=== PATIENT | male | born 1965 | race Caucasian/White ===

== ENCOUNTER → 2016-12-19 | Outpatient (CLI) | payer SELFPAY | LOC: MW.RT 07:49 | DX: R00.0 Tachycardia, unspecified (principal) ==

== ENCOUNTER → 2017-01-26 | Outpatient (CLI) | payer MEDICAID ==
--- NOTE | 2017-01-29 17:13 | NM ---
EXAM DATE: 01/26/17 PATIENT'S AGE: 51 Addendum: Additional imaging was obtained at rest following the administration of 26.2 mCi of technetium 99m labeled sestamibi. Findings/impression: The previously demonstrated defect along the inferolateral wall is not as well appreciated on the rest imaging. This could suggest mild underlying ischemia. Ejection fraction at rest is 54%. EXAMINATION: Nuclear medicine myocardial perfusion study HISTORY: Heart disease. PROCEDURE: Following intravenous administration of 0.4 mg of Lexiscan and 26.7 mCi of technetium 99m sestamibi, stress and rest SPECT images including gating imaging was performed. FINDINGS: Stress and rest myocardial SPECT images demonstrates mildly decreased perfusion along the inferior wall from the mid portion to base. Review of gated images demonstrates normal wall motion, contractility and wall thickening. The left ventricular ejection fraction is 66 %. The left ventricular chamber size is normal. IMPRESSION: 1. Mildly decreased perfusion along the inferior wall, correlate with rest imaging. 2. Normal ventricular chamber size and function with ejection fraction of 66%. MTDD
== END ==
LOC: MW.NM 08:33
PROVIDERS: ATTEND Internal Medicine
DX: I25.10 Atherosclerotic heart disease of native coronary artery without angina pectoris (principal)
CPT/HCPCS: 78451; A9500

== ENCOUNTER 2017-04-21 12:08 | Observation (INO) | payer MEDICAID ==
--- NOTE | 2017-04-21 12:15 | EDM.PDOC ---
ED HPI GENERAL MEDICAL PROBLEM - General Stated Complaint: PT HAS NO ENERGY Time Seen by Provider: 04/21/17 12:15 Source of Information: Reports: Patient - History of Present Illness INITIAL COMMENTS - FREE TEXT/NARRATIVE: HISTORY AND PHYSICAL: History of present illness: []Patient presents with chest pain 3 out of 10 which is lasted for 30 minutes no fever nausea vomiting chills sweats he states he does feel decreased energy there is no radiation arm neck or jaw no diaphoresis He does have risk factors of smoking hypertension 4 previous stents put in last May Review of systems: As per history of present illness and below otherwise all systems reviewed and negative. Past medical history: As per history of present illness and as reviewed below otherwise noncontributory. Surgical history: As per history of present illness and as reviewed below otherwise noncontributory. Social history: No reported history of drug or alcohol abuse. Family history: As per history of present illness and as reviewed below otherwise noncontributory. Physical exam: HEENT: Atraumatic, normocephalic, pupils reactive, negative for conjunctival pallor or scleral icterus, mucous membranes moist, throat clear, neck supple, nontender, trachea midline. Lungs: Clear to auscultation, breath sounds equal bilaterally, chest nontender. Heart: S1S2, regular, negative for clicks, rubs, or JVD. Abdomen: Soft, nondistended, nontender. Negative for masses or hepatosplenomegaly. Negative for costovertebral tenderness. Pelvis: Stable nontender. Genitourinary: Deferred. Rectal: Deferred. Extremities: Atraumatic, negative for cords or calf pain. Neurovascular unremarkable. Neuro: Awake, alert, oriented. Cranial nerves II through XII unremarkable. Cerebellum unremarkable. Motor and sensory unremarkable throughout. Exam nonfocal. Diagnostics: []Lab as below EKG Chest 1 view Therapeutics: []Liter normal saline bolus Aspirin 324 mg chewable Lopressor 5 mg IV Impression: []Atypical chest pain Definitive disposition and diagnosis as appropriate pending reevaluation and review of above. left chest pain Pain Score (Numeric/FACES): 4 - Related Data Allergies Allergy/AdvReac Type Severity Reaction Status Date / Time No Known Allergies Allergy Verified 04/21/17 12:17 Home Meds: Home Meds Aspirin [Ecotrin] 325 mg PO 07/14/16 [History] Clopidogrel [Plavix] 75 mg PO DAILY 07/14/16 [History] Nitroglycerin [Nitrostat] 07/14/16 [History] Pantoprazole [Protonix] 40 mg PO ACBREAKFAST 07/14/16 [History] Propranolol [Inderal LA] 60 mg PO DAILY 07/14/16 [History] Sertraline [Zoloft] 07/14/16 [History] Sucralfate [Carafate] 1 gm PO 07/14/16 [History] atorvaSTATin [Lipitor] 40 mg PO 07/14/16 [History] Past Medical History HEENT History: Reports: None Cardiovascular History: Reports: Stents, Other (See Below) Other Cardiovascular History: "Some kind of heart problem I'm being worked up for". Quad stents placed last thursday in [place]. Respiratory History: Reports: None Gastrointestinal History: Reports: None Genitourinary History: Reports: Renal Calculus Musculoskeletal History: Reports: None Neurological History: Reports: Other (See Below) Other Neuro History: pseudo tumor Psychiatric History: Reports: Depression Endocrine/Metabolic History: Reports: None Hematologic History: Reports: Anticoagulation Therapy Immunologic History: Reports: None Oncologic (Cancer) History: Reports: None Dermatologic History: Reports: None - Infectious Disease History Infectious Disease History: Reports: None - Past Surgical History HEENT Surgical History: Reports: Naso-Sinus Surgery Cardiovascular Surgical History: Reports: None, Coronary Artery Stent Social & Family History - Family History Family Medical History: Noncontributory Cardiac: Reports: [place] - Tobacco Use Smoking Status *Q: Current Every Day Smoker Years of Tobacco use: 40 Packs/Tins Daily: 0.5 Second Hand Smoke Exposure: No - Caffeine Use Caffeine Use: Reports: Coffee, Tea - Alcohol Use Days Per Week of Alcohol Use: 0 - Recreational Drug Use Recreational Drug Use: No Drug Use in Last 12 Months: No Recreational Drug Type: Reports: Marijuana/Hashish ED ROS GENERAL - Review of Systems Review Of Systems: See Below ED EXAM, GENERAL - Physical Exam Exam: See Below Course - Vital Signs Last Recorded V/S: Last Vital Signs Temp 35.4 C 04/21/17 12:18 Pulse 89 04/21/17 12:18 Resp 18 04/21/17 12:18 BP 146/75 H 04/21/17 12:43 Pulse Ox 95 04/21/17 12:18 - Orders/Labs/Meds Orders: Active Orders 24 hr Category Date Time Status EKG Documentation Completion [RC] STAT Care 04/21/17 12:15 Active Chest 1V Frontal [CR] Stat Exams 04/21/17 12:15 Taken COMPREHENSIVE METABOLIC PN,CMP [CHEM] Stat Lab 04/21/17 12:18 Results TSH [CHEM] Stat Lab 04/21/17 12:18 Results Sodium Chloride 0.9% [Normal Saline] 1,000 ml Med 04/21/17 12:16 Active IV STAT Medication Orders Sodium Chloride (Normal Saline) 1,000 mls @ 999 mls/hr IV STAT ONE Stop: 04/21/17 13:16 Last Admin: 04/21/17 12:29 Dose: 999 mls/hr Labs: Laboratory Tests 04/21/17 04/21/17 04/21/17 Range/Units 12:18 12:18 12:18 WBC 8.36 (4.0-11.0) K/uL RBC 5.51 (4.50-5.90) M/uL Hgb 16.9 (13.0-17.0) g/dL Hct 48.7 (38.0-50.0) % MCV 88.4 (80.0-98.0) fL MCH 30.7 (27.0-32.0) pg MCHC 34.7 (31.0-37.0) g/dL RDW Std Deviation 41.5 (28.0-62.0) fl RDW Coeff of Maribel 13 (11.0-15.0) % Plt Count 276 (150-400) K/uL MPV 9.50 (7.40-12.00) fL Neut % (Auto) 65.7 (48.0-80.0) % Lymph % (Auto) 25.5 (16.0-40.0) % [place]ary % (Auto) 6.6 (0.0-15.0) % Eos % (Auto) 1.7 (0.0-7.0) % Baso % (Auto) 0.5 (0.0-1.5) % Neut # (Auto) 5.5 (1.4-5.7) K/uL Lymph # (Auto) 2.1 (0.6-2.4) K/uL [place]ary # (Auto) 0.6 (0.0-0.8) K/uL Eos # (Auto) 0.1 (0.0-0.7) K/uL Baso # (Auto) 0.0 (0.0-0.1) K/uL Nucleated RBC % 0.0 /100WBC Nucleated RBCs # 0 K/uL Sodium 139 (136-146) mmol/L Potassium 4.1 (3.5-5.1) mmol/L Chloride 103 (98-110) mmol/L Carbon Dioxide 23 (21-31) mmol/L BUN 23 (6.0-23.0) mg/dL Creatinine 1.1 (0.6-1.5) mg/dL Est Cr Clr Drug Dosing 88.18 mL/min Estimated GFR (MDRD) > 60.0 ml/min Glucose 99 (60-110) mg/dL Calcium 10.2 (8.8-10.8) mg/dL Total Bilirubin 0.7 (0.1-1.5) mg/dL AST 18 (5-40) IU/L ALT 24 (8-54) IU/L Alkaline Phosphatase 114 (40-150) Troponin I < 0.10 (0.0-0.29) NG/ML Total Protein 8.2 H (6.0-8.0) g/dL Albumin 4.8 (3.5-5.0) g/dL Globulin 3.4 (2.0-3.5) g/dL Albumin/Globulin Ratio 1.4 (1.3-2.8) Meds: Medications Generic Name Dose Route Start Last Admin Trade Name Freq PRN Reason Stop Dose Admin Sodium Chloride 1,000 mls @ 999 mls/hr 04/21/17 12:16 04/21/17 12:29 Normal Saline IV 04/21/17 13:16 999 mls/hr STAT ONE Administration Discontinued Medications Generic Name Dose Route Start Last Admin Trade Name Freq PRN Reason Stop Dose Admin Aspirin 324 mg 04/21/17 12:16 04/21/17 12:30 Aspirin PO 04/21/17 12:17 324 mg ONETIME ONE Administration Metoprolol Tartrate 5 mg 04/21/17 12:21 Lopressor IVPUSH 04/21/17 12:22 NOW STA Nitroglycerin 0.4 mg 04/21/17 12:27 04/21/17 12:43 Nitrostat SL 04/21/17 12:38 0.4 mg Q5M PRN Administration Chest Pain Departure - Departure Time of Disposition: 13:10 Disposition: Refer to Observation Condition: Fair Clinical Impression: Atypical chest pain - Discharge Information - My Orders Last 24 Hours: My Active Orders 04/21/17 12:15 EKG Documentation Completion [RC] STAT Chest 1V Frontal [CR] Stat 04/21/17 12:16 Sodium Chloride 0.9% [Normal Saline] 1,000 ml IV STAT 04/21/17 12:18 COMPREHENSIVE METABOLIC PN,CMP [CHEM] Stat TSH [CHEM] Stat - Assessment/Plan Last 24 Hours: My Active Orders 04/21/17 12:15 EKG Documentation Completion [RC] STAT Chest 1V Frontal [CR] Stat 04/21/17 12:16 Sodium Chloride 0.9% [Normal Saline] 1,000 ml IV STAT 04/21/17 12:18 COMPREHENSIVE METABOLIC PN,CMP [CHEM] Stat TSH [CHEM] Stat
[2017-04-21] MEDS ORDERED: Sodium Chloride 0.9% 1,000 ML IV ONE (12:16)
[2017-04-21] MEDS ORDERED: Aspirin 81 MG Tab.Chew PO ONE (12:16)
[2017-04-21] MEDS ORDERED: Metoprolol Tartrate 5 MG/5 ML SDV IVPUSH STA (12:21)
[2017-04-21] MEDS: Nitroglycerin 0.4 MG Tab.SL SL PRN ×3 (12:32→12:43)
[2017-04-21 13:01] LABS: CHLORIDE,CL 103 mmol/L (98-110); SODIUM,NA 139 mmol/L (136-146)
[2017-04-21] MEDS ORDERED: Ondansetron 4 MG/2 ML SDV IVPUSH PRN (13:40)
[2017-04-21] MEDS ORDERED: Acetaminophen 325 MG Tab PO PRN (13:40)
[2017-04-21] MEDS: Enoxaparin 40 MG/0.4 ML Syringe SUBCUT SCH (14:16)
[2017-04-21] MEDS ORDERED: Nitroglycerin 0.4 MG Tab.SL SL PRN (14:22)
--- NOTE | 2017-04-21 14:33 | PCM.HP ---
H&P History of Present Illness - General Date of Service: 04/21/17 Admit Problem/Dx: chest pain Source of Information: Patient History Limitations: Reports: No Limitations - History of Present Illness Initial Comments - Free Text/Narative: This 52 estuardo old male with pmh of pseudotumor cerebrii, HTN, hyperlipidemia, CAD , s/p PCI x 4 in April 2016 (PDA RCA LAD) and GI upset presented to the ED today with complaints of L sided chest pain. He reports this pain started suddenly while he was sitting at a coffe shop. He reports this pain was sharp in nature , he did not take any Nitro and felt like he didn't want to take a deep breath because of the pain, nothing made it worse and nothing helped relieve the pain. He decided to be evaluated in the ED. He denied palpitations, SOB or diaphoresis with this pain. His girlfriend reports he appeared "sweaty". He denies recent fevers, worsening in headaches, no neck pain or URI. He denies GERD like symptoms recently since he hasn't been taking his prescribed medications. He denies urinary symptoms, abdominal pain or black/bloody stools. He reports he has not taken prescribed medications because his "kicked him out of the house" and is now currently living in a camper with his girlfriend, has no income source at this time. He reports he is unable to purchase medications. He continues to smoke 1 ppd for 40 years, occasional alcohol use and no recreational drug use. He has a family hx of cardiac disease in mother and father who both had bypasses. Has been seen by Dr Salgado, irwin nevarez in January 2017, which did not show any reversible defect with preserved EF. In the ED troponin negative. He was given Nitro x3 which brought pain to a 1/ 10. EKG SR 80s, no ST segment changes. He will be admitted for chest pain R/O ACS. PCP, Dr Castanon left chest pain Pain Score (Numeric/FACES): 4 - Related Data Allergies/Adverse Reactions: Allergies Allergy/AdvReac Type Severity Reaction Status Date / Time No Known Allergies Allergy Verified 04/21/17 12:17 Home Medications: Home Meds Aspirin [Ecotrin] 325 mg PO 07/14/16 [History] Nitroglycerin [Nitrostat] 07/14/16 [History] Pantoprazole [ProTONIX] 40 mg PO ACBREAKFAST 07/14/16 [History] Propranolol [Inderal LA] 60 mg PO DAILY 07/14/16 [History] Sertraline [Zoloft] 07/14/16 [History] Acetaminophen [Tylenol] 650 mg PO Q4H PRN #0 tablet 04/22/17 [Rx] Clopidogrel [Plavix] 75 mg PO DAILY #30 04/22/17 [Rx] Lisinopril 20 mg PO DAILY #30 tablet 04/22/17 [Rx] Past Medical History HEENT History: Reports: None Cardiovascular History: Reports: CAD, High Cholesterol, Hypertension, Stents ( x4 April 2016). Denies: Afib, Blood Clots/VTE/DVT Respiratory History: Reports: None. Denies: COPD, PE Gastrointestinal History: Reports: None, GERD. Denies: GI Bleed Genitourinary History: Reports: Renal Calculus. Denies: Chronic Renal Insuffiency Musculoskeletal History: Reports: Arthritis Neurological History: Reports: Other (See Below). Denies: CVA, TIA Other Neuro History: pseudotumor cerebrii Psychiatric History: Reports: Depression Endocrine/Metabolic History: Reports: Obesity/BMI 30+. Denies: Diabetes, Type II, Hypothyroidism Hematologic History: Reports: Anticoagulation Therapy Immunologic History: Reports: None Oncologic (Cancer) History: Reports: None Dermatologic History: Reports: None - Infectious Disease History Infectious Disease History: Reports: None - Past Surgical History HEENT Surgical History: Reports: Naso-Sinus Surgery Cardiovascular Surgical History: Reports: None, Coronary Artery Stent Social & Family History - Family History Family Medical History: Noncontributory Cardiac: Reports: [place] - Tobacco Use Smoking Status *Q: Current Every Day Smoker Years of Tobacco use: 40 Packs/Tins Daily: 0.5 Second Hand Smoke Exposure: No - Caffeine Use Caffeine Use: Reports: Coffee, Tea - Alcohol Use Days Per Week of Alcohol Use: 0 Number of Drinks Per Day: 6 Total Drinks Per Week: 0 - Recreational Drug Use Recreational Drug Use: No Drug Use in Last 12 Months: No Recreational Drug Type: Reports: Marijuana/Hashish - Living Situation & Occupation Living situation: Reports: with Significant Other, Other (living in [facility]) Occupation: Unemployed H&P Review of Systems - Review of Systems: Review Of Systems: See Below General: Reports: No Symptoms. Denies: Fever, Chills, Malaise HEENT: Reports: No Symptoms. Denies: Headaches, Sinus Congestion, Sore Throat, Vertigo Pulmonary: Reports: No Symptoms. Denies: Shortness of Breath, Wheezing, Cough, Sputum Cardiovascular: Reports: Chest Pain, Blood Pressure Problem. Denies: Palpitations, Edema Gastrointestinal: Reports: No Symptoms. Denies: Abdominal Pain, Black Stool, Bloody Stool, Diarrhea, Nausea, Vomiting Genitourinary: Reports: No Symptoms. Denies: Dysuria, Frequency, Burning Skin: Reports: No Symptoms Psychiatric: Reports: No Symptoms Neurological: Reports: No Symptoms Hematologic/Lymphatic: Reports: No Symptoms Immunologic: Reports: No Symptoms Exam - Exam Exam: See Below - Vital Signs Vital Signs: Last Vital Signs Temp 97.5 F 04/21/17 14:03 Pulse 79 04/21/17 14:03 Resp 17 04/21/17 14:03 BP 121/68 04/21/17 14:03 Pulse Ox 96 04/21/17 14:03 Weight: 136.078 kg - Exam Quality Assessment: Urinary Catheter General: Alert, Oriented, Cooperative HEENT: Conjunctiva Clear, Mucosa Moist & [place] Neck: Supple, Trachea Midline, 2 Lungs: Clear to Auscultation, Normal Respiratory Effort Cardiovascular: Regular Rate, Regular Rhythm, Normal S1, Normal S2, Other ( tenderness to palpation of anterior chest wall). No: Irregular Rhythm, Tachycardia, Systolic Murmur, Gallop/S3 Abdomen: Normal Bowel Sounds, Soft. No: Distention, Guarding, Rigidity, Tenderness Extremities: Normal Inspection, Normal Pulses, Edema (+1 non-pitting edema to feet and ankles.) Neuro Extensive - Mental Status: Alert, Oriented x3, Normal Mood/Affect, Normal Cognition Neuro Extensive - Motor, Sensory, Reflexes: CN II-XII Intact Psychiatric: Alert, Normal Affect, Normal Mood - Patient Data Result Diagrams: 04/21/17 12:18 04/21/17 12:18 EKG INTERPRETATION EKG Date: 04/21/17 Rhythm: NSR Rate (Beats/Min): 89 [place]: Normal QRS: Normal ST-T: Normal QT: Normal Comparison: No Change *Q Meaningful Use (ADM) - VTE *Q VTE Criteria *Q: - VTE Risk Assess *Q Each Risk Factor Represents 1 Point: Age 41 - 59 years, Swollen Legs, Current Total Score 1 Point Risk Factors: 2 Each Risk Factor Represents 2 Points: None Total Score 2 Point Risk Factors: 0 Each Risk Factor Represents 3 Points: None Total Score 3 Point Risk Factors: 0 Each Risk Factor Represents 5 Points: None Total Score 5 Point Risk Factors: 0 Venous Thromboembolism Risk Factor Score *Q: 2 - Stroke *Q Stroke Criteria *Q: - AMI *Q AMI Criteria *Q: - Problem List (1) Atypical chest pain SNOMED Code(s): 531772376 ICD Code: R07.89 - OTHER CHEST PAIN Status: Acute Current Visit: Yes (2) HTN (hypertension) SNOMED Code(s): 07572591 ICD Code: I10 - ESSENTIAL (PRIMARY) HYPERTENSION Status: Chronic Current Visit: Yes Qualifiers: Hypertension type: essential hypertension Qualified Code(s): I10 - Essential (primary) hypertension (3) Non-compliance SNOMED Code(s): 6408542 ICD Code: Z91.19 - PATIENT'S NONCOMPLIANCE W OTH MEDICAL TREATMENT AND REGIMEN Status: Chronic Current Visit: Yes (4) CAD (coronary artery disease) SNOMED Code(s): 30752819 ICD Code: I25.10 - ATHSCL HEART DISEASE OF [place] CORONARY ARTERY W/O ANG PCTRS Status: Chronic Current Visit: Yes Qualifiers: Coronary Disease-Associated Artery/Lesion type: [place] artery [place] vs. transplanted heart: [place] heart Associated angina: without angina Qualified Code(s): I25.10 - Atherosclerotic heart disease of [place] coronary artery without angina pectoris (5) Pseudotumor cerebri SNOMED Code(s): 83897935 ICD Code: G93.2 - BENIGN INTRACRANIAL HYPERTENSION Status: Chronic Current Visit: Yes (6) History of coronary artery stent placement SNOMED Code(s): 046444658, 501455866 ICD Code: Z95.5 - PRESENCE OF CORONARY ANGIOPLASTY IMPLANT AND GRAFT Status : Chronic Current Visit: Yes Problem List Initiated/Reviewed/Updated: Yes Orders Last 24hrs: Active Orders 24 hr Category Date Time Status Communication Order [RC] PRN Care 04/21/17 13:40 Ordered EKG Documentation Completion [RC] AM Care 04/22/17 07:00 Ordered Intake and Output [RC] QSHIFT Care 04/21/17 13:40 Ordered Oxygen Therapy [RC] PRN Care 04/21/17 13:40 Ordered Telemetry Monitoring [Cardiac Monitoring] [RC] . Care 04/21/17 13:47 Ordered DIRECTED Up With Assistance [RC] ASDIRECTED Care 04/21/17 13:40 Ordered VTE/DVT Education [RC] PER UNIT ROUTINE Care 04/21/17 13:40 Ordered Vital Signs [RC] Q4H Care 04/21/17 13:40 Ordered Heart Healthy Diet [DIET] Diet 04/21/17 Dinner Ordered TROPONIN I [CHEM] Q6H Lab 04/21/17 18:00 Ordered TROPONIN I [CHEM] Q6H Lab 04/22/17 00:00 Ordered Acetaminophen [Tylenol] Med 04/21/17 13:40 Ordered 650 mg PO Q4H PRN Aspirin Med 04/22/17 09:00 Ordered 81 mg PO DAILY Clopidogrel [Plavix] Med 04/21/17 14:30 Ordered 75 mg PO DAILY Enoxaparin [Lovenox] Med 04/21/17 13:45 Ordered 40 mg SUBCUT DAILY Lisinopril [Prinivil] Med 04/21/17 14:30 Ordered 20 mg PO DAILY Nitroglycerin [Nitrostat] Med 04/21/17 14:22 Ordered 0.4 mg SL Q5M PRN Ondansetron [Zofran] Med 04/21/17 13:40 Ordered 4 mg IVPUSH Q4H PRN Resuscitation Status Routine Resus Stat 04/21/17 13:40 Ordered Medication Orders Acetaminophen (Tylenol) 650 mg PO Q4H PRN PRN Reason: Pain Aspirin (Aspirin) 81 mg PO DAILY LIZ Clopidogrel Bisulfate (Plavix) 75 mg PO DAILY LIZ Enoxaparin Sodium (Lovenox) 40 mg SUBCUT DAILY LIZ Last Admin: 04/21/17 14:16 Dose: 40 mg Lisinopril (Prinivil) 20 mg PO DAILY LIZ Nitroglycerin (Nitrostat) 0.4 mg SL Q5M PRN PRN Reason: Chest Pain Ondansetron HCl (Zofran) 4 mg IVPUSH Q4H PRN PRN Reason: Nausea Assessment/Plan Comment:: This 52 year old male admitted with atypical chest pain R/O ACS 1. Chest pain: Will monitor on telemetry, trend troponins, contact Dr. Dowling in am. Nitro SL PRN chest pain 2. HTN: Will continue Lisinopril. 3. CAD: Continue ASA and Plavix. VTE prophylaxis: Lovenox Discharge Plan Discharge diagnoses: Atypical chest pain HTN CAD Non-compliance Sergio was admitted and monitored on telemetry. His EKG and telemetry showed no ST segment changes. He had no further chest pain. Troponins remained negative. ACS ruled out. Home medications restarted and BP better controlled with Lisinopril on board. Will discharge home today with follow up with both Dr. Salgado and Dr. Castanon. We will have him meet with financial office for resources to help get medications. He was encouraged to follow up as arranged and to return to ED or clinic if concerns should arise.
[2017-04-21] MEDS: Clopidogrel 75 MG Tab PO SCH (14:41)
[2017-04-21] MEDS: Lisinopril 10 MG Tab PO SCH (14:41)
[2017-04-22 08:19] VITALS: BP 120/60
[2017-04-22] MEDS ORDERED: Aspirin 81 MG Tab.Chew PO SCH (09:00)
[2017-04-22] MEDS: Lisinopril 10 MG Tab PO SCH (09:11)
[2017-04-22] MEDS: Clopidogrel 75 MG Tab PO SCH (09:11)
[2017-04-22] MEDS: Enoxaparin 40 MG/0.4 ML Syringe SUBCUT SCH (09:15)
--- NOTE | 2017-04-22 15:28 | CR ---
EXAM DATE: 04/21/17 PATIENT'S AGE: 52 Patient: GERMÁN JEROME Facility: [place], [place] Site . Site : [id number] Study: XRay Chest [id number]/4/2017 1:10:35 PM Ordering Physician: Doctor Pinzon Final Report: INDICATION: Fatigue. Heart problem. COMPARISON: 07/14/2016. FINDINGS: A portable AP upright view of the chest was obtained. The cardiac silhouette is stable. The pulmonary vasculature is within normal limits. The lungs are clear bilaterally. IMPRESSION: Stable chest x-ray. No evidence of acute pulmonary disease. Dictated by Anson Walters MD @ 04/21/2017 1:15:05 PM Dictated by: Anson Walters MD @ 04/21/2017 13:15:18 (Electronic Signature) Report Signed by Proxy. [email or web address]
== END 2017-04-22 11:40 | disposition home or self-care (01) ==
LOC: MW.ED 12:08 → MW.MS 13:19
PROVIDERS: ADMIT Internal Medicine; ATTEND Internal Medicine
DX: R07.89 Other chest pain (principal); I10 Essential (primary) hypertension; I25.10 Atherosclerotic heart disease of native coronary artery without angina pectoris; G93.2 Benign intracranial hypertension; E78.00 Pure hypercholesterolemia, unspecified; E66.9 Obesity, unspecified; Z95.5 Presence of coronary angioplasty implant and graft; K21.9 Gastro-esophageal reflux disease without esophagitis; F32.9 Major depressive disorder, single episode, unspecified; Z79.82 Long term (current) use of aspirin; Z79.899 Other long term (current) drug therapy; Z91.19 Patient's noncompliance with other medical treatment and regimen; Z68.30 Body mass index [BMI] 30.0-30.9, adult; Z98.890 Other specified postprocedural states; Z79.01 Long term (current) use of anticoagulants; F17.210 Nicotine dependence, cigarettes, uncomplicated
CPT/HCPCS: 36415; 71010; 80053; 84443; 84484; 85025; 93005; 96360; 96372; 99285; A9270; G0378; J1650; J7040

== ENCOUNTER 2017-05-28 12:48 | Day surgery (SDC) | payer MEDICAID ==
[~2017-05-28 12:48] MED LIST: Lactated Ringers 1,000 ML IV SCH; Lidocaine 2% 5 ML SDV ONE; Midazolam 1 MG/ML 2 ML SDV ONE; Propofol 200 MG/20 ML SDV ONE; fentaNYL 100 MCG/2 ML SDV ONE
--- NOTE | 2017-05-28 13:21 | PCM.PREANE ---
Preanesthetic Assessment - Anesthesia/Transfusion/Family Hx Anesthesia History: Prior Anesthesia Without Reaction Family History of Anesthesia Reaction: No Transfusion History: No Prior Transfusion(s) - Review of Systems General: No Symptoms Pulmonary: No Symptoms Cardiovascular: No Symptoms Gastrointestinal: No Symptoms Neurological: No Symptoms Other: Reports: None - Physical Assessment NPO Status Date: 05/27/17 O2 Sat by Pulse Oximetry: 96 Respiratory Rate: 16 Vital Signs: Last Vital Signs Temp 36.4 C 05/28/17 12:56 Pulse 75 05/28/17 12:56 Resp 16 05/28/17 12:56 BP 140/79 05/28/17 12:56 Pulse Ox 96 05/28/17 12:56 Height: 1.83 m Weight: 130.635 kg ASA Class: 3 Mental Status: Alert & Oriented x3 Airway Class: Mallampati = 2 Dentition: Reports: Normal Dentition ROM/Head Extension: Full Lungs: Clear to Auscultation, Normal Respiratory Effort Cardiovascular: Regular Rate, Regular Rhythm - Allergies Allergies/Adverse Reactions: Allergies Allergy/AdvReac Type Severity Reaction Status Date / Time No Known Allergies Allergy Verified 04/21/17 12:17 - Anesthesia Plan Pre-Op Medication Ordered: None - Acknowledgements Anesthesia Type Planned: MAC Pt an Appropriate Candidate for the Planned Anesthesia: Yes Alternatives and Risks of Anesthesia Discussed w Pt/Guardian: Yes Pt/Guardian Understands and Agrees with Anesthesia Plan: Yes Additional Comments: coronary stent 12 mo ago, off asa and plavix for 4 days. PreAnesthesia Questionnaire HEENT History: Reports: None Cardiovascular History: Reports: CAD, High Cholesterol, Hypertension, Stents Respiratory History: Reports: None Gastrointestinal History: Reports: GERD Genitourinary History: Reports: Renal Calculus Musculoskeletal History: Reports: Arthritis, Fracture Other Musculoskeletal History: fx hand Neurological History: Reports: Parkinson's, Other (See Below) Other Neuro History: pseudotumor cerebrii, parkinsons Psychiatric History: Reports: Depression Endocrine/Metabolic History: Reports: Obesity/BMI 30+ Hematologic History: Reports: Anticoagulation Therapy Immunologic History: Reports: None Oncologic (Cancer) History: Reports: None Dermatologic History: Reports: None - Infectious Disease History Infectious Disease History: Reports: None - Past Surgical History Head Surgeries/Procedures: Reports: None HEENT Surgical History: Reports: Naso-Sinus Surgery Cardiovascular Surgical History: Reports: Coronary Artery Stent Other Cardiovascular Surgeries/Procedures: coronary stent placement Male Surgical History: Reports: Lithotripsy (ESWL) Neurological Surgical History: Reports: None Musculoskeletal Surgical History: Reports: None Dermatological Surgical History: Reports: None - SUBSTANCE USE Smoking Status *Q: Current Every Day Smoker Tobacco Use Within Last Twelve Months: Cigarettes Second Hand Smoke Exposure: No Days Per Week of Alcohol Use: 0 Number of Drinks Per Day: 6 Total Drinks Per Week: 0 Recreational Drug Use History: No Recreational Drug Type: Reports: Marijuana/Hashish - HOME MEDS Home Medications: Home Meds Nitroglycerin [Nitrostat] 1 tab SL ASDIRECTED PRN 07/14/16 [History] Clopidogrel [Plavix] 75 mg PO DAILY #30 04/22/17 [Rx] Aspirin [Natali Chewable Aspirin] 81 mg CHEW DAILY 05/25/17 [History] Losartan Potassium 25 mg PO DAILY 05/25/17 [History] - CURRENT (IN HOUSE) MEDS Current Meds: Current Medications Lactated Ringer's (Ringers, Lactated) 1,000 mls @ 125 mls/hr IV ASDIRECTED LIZ Last Admin: 05/28/17 13:04 Dose: 125 mls/hr Discontinued Medications Fentanyl (Sublimaze) Confirm Administered Dose 100 mcg .ROUTE .STK-MED ONE Stop: 05/28/17 09:28 Lidocaine (Xylocaine-Mpf 2%) Confirm Administered Dose 5 ml .ROUTE .STK-MED ONE Stop: 05/28/17 09:28 Midazolam HCl (Versed 1 Mg/Ml) Confirm Administered Dose 2 mg .ROUTE .STK-MED ONE Stop: 05/28/17 09:28 Propofol (Diprivan 20 Ml) Confirm Administered Dose 400 mg .ROUTE .STK-MED ONE Stop: 05/28/17 09:28
--- NOTE | 2017-05-28 13:41 | PCM.OPNOTE ---
- General Post-Op/Procedure Note Date of Surgery/Procedure: 05/28/17 Operative Procedure(s): egd Findings: resolved bleeding ulcer; dict [id number] Pre Op Diagnosis: abd pain Post-Op Diagnosis: resolving bleeding ulcer Anesthesia Technique: Moderate Sedation Primary Surgeon: Blair Hanna Complications: None Condition: Good
--- NOTE | 2017-05-28 13:59 | PCM.POSTAN ---
POST ANESTHESIA ASSESSMENT - MENTAL STATUS Mental Status: Alert, Oriented - RESPIRATORY Respiratory Status: Respiratory Rate WNL, Airway Patent, O2 Saturation Stable - CARDIOVASCULAR CV Status: Pulse Rate WNL, Blood Pressure Stable, Elevated Pulse Rate - GASTROINTESTINAL GI Status: No Symptoms - POST OP HYDRATION Hydration Status: Adequate & Stable
--- NOTE | 2017-05-28 13:59 | PCM48HPAN ---
Post Anesthesia Note - EVALUATION WITHIN 48HRS OF ANESTHETIC Vital Signs in Normal Range: Yes Patient Participated in Evaluation: Yes Respiratory Function Stable: Yes Airway Patent: Yes Cardiovascular Function Stable: Yes Hydration Status Stable: Yes Pain Control Satisfactory: Yes Nausea and Vomiting Control Satisfactory: Yes Mental Status Recovered: Yes
[2017-05-28 14:08] VITALS: BP 106/59
--- NOTE | 2017-05-28 21:36 | OR ---
SURGEON: Blair Hanna MD DATE OF PROCEDURE: 05/28/2017 PREOPERATIVE DIAGNOSIS: Abdominal pain. POSTOPERATIVE DIAGNOSIS: Resolved bleeding ulcer. PROCEDURE PERFORMED: Esophagogastroduodenoscopy. PROCEDURE IN DETAIL: EGD: The patient was taken to the endoscopy room, and with the FIBRE CEMENT MOULDER, Diprivan was administered. A well-lubricated EGD scope was gently inserted through the oropharynx, down the esophagus, passing through the gastroesophageal junction, into the stomach. The mucosa was examined upon the passage. Any etiology will be noted. Once in the stomach, we continued to advance to the distal antrum, passed through the pylorus into the second portion of the duodenum. Again, the mucosa was examined for any abnormality and etiology. The scope was then retrieved back to the stomach and then retroflexed to look at the fundus of the stomach. If a biopsy was indicated, we will biopsy the antrum, body, and gastroesophageal junction. The air will be sucked out while the scope is retrieved to reduce the patient's discomfort. The patient tolerated the procedure well. There were no intraoperative complications. Dr. Hanna was present through the whole procedure. Prior to surgery, a time-out had been called, the patient identified, procedure identified and antibiotic administered. FINDINGS: 1. The patient is easily sedated with FIBRE CEMENT MOULDER and Diprivan. The patient is soundly snoring. 2. Oropharynx and proximal esophagus is free of disease and distal esophagus GE junction at 40 with some mild salmon color change consistent with acid reflux, and stomach rugae is normal in appearance. There was no bile, food particle. There are few areas of looked like it is a healed bleeding ulcer. There is no blood there, but the area look like a healed bleeding ulcer with some necrotic lining on top of it, and antrum is inflamed, and duodenum was grossly normal. Retroflexed look at the fundus of stomach, there is no hiatal hernia. No biopsy was attempted because of the bleeding ulcer and the patient would benefit from repeat EGD 3 to 6 months. There is no angelic blood observed and the area of blood looked like bleeding ulcer is in the antrum and another area is in the greater curvature. As always, thank you for the kind referral. FRANCIS / LASHANDA /[id number]
== END 2017-05-28 14:16 | disposition home or self-care (01) ==
LOC: MW.SDS 12:48
PROVIDERS: ATTEND Surgery
PROC: 0DJ08ZZ Inspection of Upper Intestinal Tract, Via Natural or Artificial Opening Endoscopic (ICD-10-PCS; principal; 2017-05-28)
DX: K25.4 Chronic or unspecified gastric ulcer with hemorrhage (principal); I25.10 Atherosclerotic heart disease of native coronary artery without angina pectoris; I10 Essential (primary) hypertension; E78.5 Hyperlipidemia, unspecified; E66.9 Obesity, unspecified; F17.210 Nicotine dependence, cigarettes, uncomplicated; K21.9 Gastro-esophageal reflux disease without esophagitis; M19.90 Unspecified osteoarthritis, unspecified site; G20 Parkinson's disease; F32.9 Major depressive disorder, single episode, unspecified; Z79.02 Long term (current) use of antithrombotics/antiplatelets; Z79.82 Long term (current) use of aspirin; Z79.899 Other long term (current) drug therapy; Z98.890 Other specified postprocedural states; Z95.5 Presence of coronary angioplasty implant and graft; Z68.39 Body mass index [BMI] 39.0-39.9, adult
CPT/HCPCS: 43235; J2250; J3010; J7120; 00810; J2704

== ENCOUNTER 2017-07-15 21:01 | Emergency (ER) | payer MEDICAID ==
[2017-07-15] MEDS ORDERED: Aspirin 81 MG Tab.Chew PO ONE (21:12)
[2017-07-15] MEDS ORDERED: Sodium Chloride 0.9% 1,000 ML IV ONE (21:12)
[2017-07-15] MEDS: Nitroglycerin 0.4 MG Tab.SL SL PRN ×3 (21:32→21:42)
--- NOTE | 2017-07-15 21:37 | EDM.PDOC ---
ED HPI GENERAL MEDICAL PROBLEM - General Chief Complaint: Chest Pain Stated Complaint: CHEST PAINS Time Seen by Provider: 07/15/17 21:35 Source of Information: Reports: Patient - History of Present Illness INITIAL COMMENTS - FREE TEXT/NARRATIVE: HISTORY AND PHYSICAL: History of present illness: []Patient with cardiac stenting performed post stress test last May, one year prior..... presents with chest pain off and on for 3 days, he has had 3 out of 10 chest pain off and on which has prompted his visit no radiation to arm neck or jaw not associated with shortness breath or diaphoresis. I can reproduce pain with palpation of left pelvic age or and pressure on the lower rib cage headache and also reproduce pain with extension of his left arm No fever nausea vomiting chills sweats no shortness of breath headache dizziness or palpitation no bowel or urine symptoms Review of systems: As per history of present illness and below otherwise all systems reviewed and negative. Past medical history: As per history of present illness and as reviewed below otherwise noncontributory. Surgical history: As per history of present illness and as reviewed below otherwise noncontributory. Social history: No reported history of drug or alcohol abuse. Family history: As per history of present illness and as reviewed below otherwise noncontributory Gen. patient is well groomed and in no apparent distress whatsoever, no pain behaviors . Physical exam: HEENT: Atraumatic, normocephalic, pupils reactive, negative for conjunctival pallor or scleral icterus, mucous membranes moist, throat clear, neck supple, nontender, trachea midline. Lungs: Clear to auscultation, breath sounds equal bilaterally, chest nontender on the right and left I can reproduce symptoms by pushing on chest wall and pectoralis major approximately T4 level Heart: S1S2, regular, negative for clicks, rubs, or JVD. Abdomen: Soft, nondistended, nontender. Negative for masses or hepatosplenomegaly. Negative for costovertebral tenderness. Pelvis: Stable nontender. Genitourinary: Deferred. Rectal: Deferred. Extremities: Atraumatic, negative for cords or calf pain. Neurovascular unremarkable. Neuro: Awake, alert, oriented. Cranial nerves II through XII unremarkable. Cerebellum unremarkable. Motor and sensory unremarkable throughout. Exam nonfocal. Diagnostics: []Lab as below EKG Chest 1 view Therapeutics: []1 L normal saline bolus Aspirin 324 mg chewable Nitroglycerin 0.4 sublingual to 5 minutes when necessary. No change in chest pain Patient continue current medications as directed Follow-up with Dr. Dowling ER referral within the next week for reevaluation Impression: Reproducible chest wall pain Negative troponin after 3 days No acute changes on EKG Significant stenting history history within the last year Definitive disposition and diagnosis as appropriate pending reevaluation and review of above. chest area Pain Score (Numeric/FACES): 6 - Related Data Allergies Allergy/AdvReac Type Severity Reaction Status Date / Time No Known Allergies Allergy Verified 07/15/17 21:09 Home Meds: Home Meds Nitroglycerin [Nitrostat] 1 tab SL ASDIRECTED PRN 07/14/16 [History] Clopidogrel [Plavix] 75 mg PO DAILY #30 04/22/17 [Rx] Aspirin [Natali Chewable Aspirin] 81 mg CHEW DAILY 05/25/17 [History] Losartan Potassium 25 mg PO DAILY 05/25/17 [History] Omeprazole 20 mg PO DAILY 07/15/17 [History] Rosuvastatin Calcium 20 mg PO DAILY 07/15/17 [History] busPIRone [Buspar] 15 mg PO BID 07/15/17 [History] Past Medical History HEENT History: Reports: None Cardiovascular History: Reports: High Cholesterol, Hypertension, Stents Other Cardiovascular History: "Some kind of heart problem I'm being worked up for". Quad stents placed last thursday in [place]. Respiratory History: Reports: None Gastrointestinal History: Reports: GERD Genitourinary History: Reports: Renal Calculus Musculoskeletal History: Reports: Arthritis Other Musculoskeletal History: fx hand Neurological History: Reports: Other (See Below) Other Neuro History: pseudotumor cerebrii Psychiatric History: Reports: Anxiety, Depression Endocrine/Metabolic History: Reports: Obesity/BMI 30+ Hematologic History: Reports: Anticoagulation Therapy Immunologic History: Reports: None Oncologic (Cancer) History: Reports: None Dermatologic History: Reports: None - Infectious Disease History Infectious Disease History: Reports: C-Difficile, Measles, Mumps - Past Surgical History HEENT Surgical History: Reports: Naso-Sinus Surgery Cardiovascular Surgical History: Reports: Coronary Artery Stent Male Surgical History: Reports: Lithotripsy (ESWL) Dermatological Surgical History: Reports: None Social & Family History - Family History Family Medical History: Noncontributory Cardiac: Reports: [place] - Tobacco Use Smoking Status *Q: Current Every Day Smoker Years of Tobacco use: 40 Packs/Tins Daily: 1 Second Hand Smoke Exposure: No - Caffeine Use Caffeine Use: Reports: Coffee - Alcohol Use Days Per Week of Alcohol Use: 0 Number of Drinks Per Day: 6 Total Drinks Per Week: 0 - Recreational Drug Use Recreational Drug Use: No Drug Use in Last 12 Months: No Recreational Drug Type: Reports: Marijuana/Hashish - Living Situation & Occupation Living situation: Reports: with Significant Other, Other (living in [facility]) Occupation: Unemployed ED ROS GENERAL - Review of Systems Review Of Systems: ROS reveals no pertinent complaints other than HPI. ED EXAM, GENERAL - Physical Exam Exam: See Below Course - Vital Signs Last Recorded V/S: Last Vital Signs Temp 36.4 C 07/15/17 21:09 Pulse 88 07/15/17 21:09 Resp 18 07/15/17 21:09 BP 125/71 07/15/17 21:42 Pulse Ox 98 07/15/17 21:09 - Orders/Labs/Meds Orders: Active Orders 24 hr Category Date Time Status EKG Documentation Completion [RC] STAT Care 07/15/17 21:12 Active Chest 1V Frontal [CR] Stat Exams 07/15/17 21:12 Taken UA W/MICROSCOPIC [URIN] Stat Lab 07/15/17 21:12 Uncollected Labs: Laboratory Tests 07/15/17 07/15/17 07/15/17 Range/Units 21:25 21:25 21:25 WBC 9.54 (4.0-11.0) K/uL RBC 5.21 (4.50-5.90) M/uL Hgb 16.1 (13.0-17.0) g/dL Hct 45.7 (38.0-50.0) % MCV 87.7 (80.0-98.0) fL MCH 30.9 (27.0-32.0) pg MCHC 35.2 (31.0-37.0) g/dL RDW Std Deviation 40.2 (28.0-62.0) fl RDW Coeff of Maribel 13 (11.0-15.0) % Plt Count 254 (150-400) K/uL MPV 9.40 (7.40-12.00) fL Neut % (Auto) 66.3 (48.0-80.0) % Lymph % (Auto) 25.8 (16.0-40.0) % [place] % (Auto) 5.3 (0.0-15.0) % Eos % (Auto) 2.3 (0.0-7.0) % Baso % (Auto) 0.3 (0.0-1.5) % Neut # (Auto) 6.3 H (1.4-5.7) K/uL Lymph # (Auto) 2.5 H (0.6-2.4) K/uL [place] # (Auto) 0.5 (0.0-0.8) K/uL Eos # (Auto) 0.2 (0.0-0.7) K/uL Baso # (Auto) 0.0 (0.0-0.1) K/uL Nucleated RBC % 0.0 /100WBC Nucleated RBCs # 0 K/uL Sodium 142 (136-146) mmol/L Potassium 3.9 (3.5-5.1) mmol/L Chloride 108 (98-110) mmol/L Carbon Dioxide 21 (21-31) mmol/L BUN 10 (6.0-23.0) mg/dL Creatinine 0.9 (0.6-1.5) mg/dL Est Cr Clr Drug Dosing 107.78 mL/min Estimated GFR (MDRD) > 60.0 ml/min Glucose 110 (60-110) mg/dL Calcium 9.7 (8.8-10.8) mg/dL Total Bilirubin 0.5 (0.1-1.5) mg/dL AST 17 (5-40) IU/L ALT 23 (8-54) IU/L Alkaline Phosphatase 97 (40-150) Troponin I < 0.10 (0.0-0.29) NG/ML Total Protein 7.5 (6.0-8.0) g/dL Albumin 4.3 (3.5-5.0) g/dL Globulin 3.2 (2.0-3.5) g/dL Albumin/Globulin Ratio 1.3 (1.3-2.8) Amylase 36 (10-90) U/L Lipase 50 (7-80) U/L Meds: Medications Discontinued Medications Generic Name Dose Route Start Last Admin Trade Name Freq PRN Reason Stop Dose Admin Aspirin 324 mg 07/15/17 21:12 07/15/17 21:29 Aspirin PO 07/15/17 21:13 324 mg ONETIME ONE Administration Sodium Chloride 1,000 mls @ 999 mls/hr 07/15/17 21:12 07/15/17 21:30 Normal Saline IV 07/15/17 22:12 999 mls/hr STAT ONE Administration Nitroglycerin 0.4 mg 07/15/17 21:12 07/15/17 21:42 Nitrostat SL 0.4 mg Q5M PRN Administration Chest Pain Departure - Departure Time of Disposition: 22:48 Disposition: Home, Self-Care 01 Condition: Good Clinical Impression: Chest wall pain - Discharge Information Referrals: PCP,None [Primary Care Provider] - Forms: ED Department Discharge Additional Instructions: Continue current medications as prescribed Return if symptoms persist or worsen or new concerning symptoms develop Follow-up with Dr. Dowling within one week in ER referral will be provided for reevaluation and recheck The following information is given to patients seen in the emergency department who are being discharged to home. This information is to outline your options for follow-up care. We provide all patients seen in our emergency department with a follow-up referral. The need for follow-up, as well as the timing and circumstances, are variable depending upon the specifics of your emergency department visit. If you don't have a primary care physician on staff, we will provide you with a referral. We always advise you to contact your personal physician following an emergency department visit to inform them of the circumstance of the visit and for follow-up with them and/or the need for any referrals to a consulting specialist. The emergency department will also refer you to a specialist when appropriate. This referral assures that you have the opportunity for follow-up care with a specialist. All of these measure are taken in an effort to provide you with optimal care, which includes your follow-up. Under all circumstances we always encourage you to contact your private physician who remains a resource for coordinating your care. When calling for follow-up care, please make the office aware that this follow-up is from your recent emergency room visit. If for any reason you are refused follow-up, please contact the [facility] emergency department at and asked to speak to the emergency department charge nurse. - My Orders Last 24 Hours: My Active Orders 07/15/17 21:12 EKG Documentation Completion [RC] STAT Chest 1V Frontal [CR] Stat UA W/MICROSCOPIC [URIN] Stat - Assessment/Plan Last 24 Hours: My Active Orders 07/15/17 21:12 EKG Documentation Completion [RC] STAT Chest 1V Frontal [CR] Stat UA W/MICROSCOPIC [URIN] Stat
[2017-07-15 21:43] VITALS: BP 125/71
[2017-07-15 21:56] LABS: CHLORIDE,CL 108 mmol/L (98-110); SODIUM,NA 142 mmol/L (136-146)
--- NOTE | 2017-07-16 10:17 | CR ---
EXAM DATE: 07/15/17 PATIENT'S AGE: 52 Patient: GERMÁN JEROME Facility: [place], [place] Site . Site : [id number] Study: XRay Chest [id number]/27/2017 9:52:03 PM Ordering Physician: Doctor Pinzon Final Report: INDICATION: CHEST PAIN FOR 3 DAYS TECHNIQUE: Chest 1 view. COMPARISON: 04/21/2017. FINDINGS: Cardiovascular and mediastinum: Heart size and vasculature are normal in caliber and appearance. Mediastinum is within normal limits. Lungs and pleural space: Lungs are clear. No sign of infiltrate or mass. No sign of pleural effusion. No pneumothorax. Bones and soft tissues: No significant findings. IMPRESSION: Unremarkable chest. Dictated by: Jesus Major MD @ 07/15/2017 22:08:07 (Electronic Signature) Report Signed by Proxy. [facility] YORK PSYCHIATRIC CENTERJosey
== END 2017-07-15 22:58 | disposition home or self-care (01) ==
LOC: MW.ED 21:01
DX: R07.89 Other chest pain (principal); K21.9 Gastro-esophageal reflux disease without esophagitis; F32.9 Major depressive disorder, single episode, unspecified; E66.9 Obesity, unspecified; Z79.01 Long term (current) use of anticoagulants; Z95.5 Presence of coronary angioplasty implant and graft; Z98.890 Other specified postprocedural states; F17.210 Nicotine dependence, cigarettes, uncomplicated; Z79.82 Long term (current) use of aspirin; Z79.02 Long term (current) use of antithrombotics/antiplatelets; Z79.899 Other long term (current) drug therapy; Z68.37 Body mass index [BMI] 37.0-37.9, adult
CPT/HCPCS: 36415; 71010; 80053; 82150; 83690; 84484; 85025; 93005; 96360; 99285; A9270; J7040; 99283

== ENCOUNTER 2018-01-19 00:27 | Emergency (ER) | payer MEDICAID ==
--- NOTE | 2018-01-19 00:40 | EDM.PDOC ---
ED HPI GENERAL MEDICAL PROBLEM - General Chief Complaint: Skin Complaint Stated Complaint: BOIL ON BOTTOM Time Seen by Provider: 01/19/18 00:37 - History of Present Illness INITIAL COMMENTS - FREE TEXT/NARRATIVE: HISTORY AND PHYSICAL: History of present illness: The patient is a 52-year-old male with a history of hypertension and coronary artery disease with stent who was recently worked up for pseudotumor cerebri and had a spinal tap performed on January 13, last week, per Dr. Smith as well as an outpatient workup for mastodynia, for which she had a CT scan of the chest on January 01 which was negative, and presents today complaints of a "boil" at his left buttocks cheek which he noticed last evening. The patient was seen in the clinic by his provider on January 15, 3 days ago, and had a wound culture performed of an area on his back and those results were reviewed by me which yielded a negative final results. The area in question on his back is in the thoracic spine area and that is not causing him any discomfort today. The patient says that he has always had bumps and areas on his buttocks that he has scratched and irritated but he noticed this one and he did try to scratch/pop it and it seemed to get worse this evening so he came for evaluation. The area that bothers him is on the left inner buttocks cheek but he denies any testicular pain or scrotal pain and has no perianal pain. He says he is having no abdominal complaints no fevers and no other systemic issues. He says he is passing his urine and stool but there is just discomfort when he sits on the toilet. Patient was started on Bactrim on Thursday for this lesion at his thoracic back area and he has been compliant with that. The patient has a follow-up appointment tomorrow with Dr. Smith discuss his lumbar puncture test results and does not have a scheduled follow-up with his provider in the regular clinic. Review of systems: As per history of present illness and below otherwise all systems reviewed and negative. Past medical history: As per history of present illness and as reviewed below otherwise noncontributory. Surgical history: As per history of present illness and as reviewed below otherwise noncontributory. Social history: No reported history of drug or alcohol abuse. Family history: As per history of present illness and as reviewed below otherwise noncontributory. Physical exam: General: Well-developed well-nourished man who is nontoxic and vital signs have been reviewed by me HEENT: Atraumatic, normocephalic, negative for conjunctival pallor or scleral icterus, mucous membranes moist, neck supple, nontender, trachea midline. Lungs: Clear to auscultation, breath sounds equal bilaterally, chest nontender. Heart: S1S2, regular, rate and rhythm no overt murmurs Abdomen: Soft, nondistended, nontender. Negative for costovertebral tenderness. Pelvis: Stable nontender. Genitourinary: Deferred. Rectal: There is normal tone push and squeeze appreciated and has no perianal fullness redness or extension of the buttocks cheek cellulitis to this region. There is also no extension of this to the scrotal skin. At the left buttocks cheek near the groove of the thigh on the inner most aspect there is a 6 x 5 cm area of well-demarcated erythema with a central area of induration proximally 2 x 2 centimeters. There is no fluctuance and there is some mild tenderness on palpation of this region. There is no discrete punctum or open area. There are multiple other small pimple-like areas seen on the buttocks cheeks bilaterally without any gross erythema or drainage. Extremities: Atraumatic, negative for cords or calf pain. Neurovascular unremarkable. Neuro: Awake, alert, oriented. Cranial nerves II through XII unremarkable. Cerebellum unremarkable. Motor and sensory unremarkable throughout. Exam nonfocal. Diagnostics: [] Therapeutics: flagyl Toradol--- the patient drove himself and states that he can only get home if he drives him and his girlfriend home. I also offered him medications via the [employer] Meds to take at home for the pain and he states he has no ability to fill those prescriptions and would prefer prescriptions that he can fill tomorrow at the pharmacy. I did discuss with him that at this point the area does not have fluctuance and is not a drainable abscess but is more induration and cellulitis. He is currently taking Bactrim so I will add a second antibiotic as well as pain meds for home and advised close follow-up with his provider in the clinic as this may need incision and drainage over the next several days. I've advised him to do sitz baths and/or warm compresses to the area to bring anything up to her head. I've advised him on reasons to return here if this does occur and we will proceed to incision and drainage. I also advised him that if this area that I have marked on his exam starts extending to his perianal area or scrotal area he should immediately return to the ED. Impression: Left buttocks cheek cellulitis/induration rule out early abscess Definitive disposition and diagnosis as appropriate pending reevaluation and review of above. Left buttock Pain Score (Numeric/FACES): 10 - Related Data Allergies Allergy/AdvReac Type Severity Reaction Status Date / Time No Known Allergies Allergy Verified 01/19/18 00:42 Home Meds: Home Meds Nitroglycerin [Nitrostat] 1 tab SL ASDIRECTED PRN 07/14/16 [History] Clopidogrel [Plavix] 75 mg PO DAILY #30 04/22/17 [Rx] Aspirin [Natali Chewable Aspirin] 81 mg CHEW DAILY 05/25/17 [History] Losartan Potassium 25 mg PO DAILY 05/25/17 [History] Omeprazole 20 mg PO DAILY 07/15/17 [History] Rosuvastatin Calcium 20 mg PO DAILY 07/15/17 [History] FLUoxetine HCl [Fluoxetine HCl] 20 mg PO DAILY 01/19/18 [History] Sulfamethoxazole/Trimethoprim [Bactrim Ds Tablet] 0 tab PO BID 01/19/18 [History ] Topiramate [Trokendi Xr] 25 mg PO BID 01/19/18 [History] lamoTRIgine [Lamotrigine] 2 tab PO DAILY 01/19/18 [History] traZODone HCl [Trazodone HCl] 1 tab PO BEDTIME 01/19/18 [History] Past Medical History HEENT History: Reports: None Cardiovascular History: Reports: High Cholesterol, Hypertension, Stents Other Cardiovascular History: "Some kind of heart problem I'm being worked up for". Quad stents placed last thursday in [place]. Respiratory History: Reports: None Gastrointestinal History: Reports: GERD Genitourinary History: Reports: Renal Calculus Musculoskeletal History: Reports: Arthritis Other Musculoskeletal History: fx hand Neurological History: Reports: Other (See Below) Other Neuro History: pseudotumor cerebrii Psychiatric History: Reports: Anxiety, Depression Endocrine/Metabolic History: Reports: Obesity/BMI 30+ Hematologic History: Reports: Anticoagulation Therapy Immunologic History: Reports: None Oncologic (Cancer) History: Reports: None Dermatologic History: Reports: None - Infectious Disease History Infectious Disease History: Reports: C-Difficile, Measles, Mumps - Past Surgical History HEENT Surgical History: Reports: Naso-Sinus Surgery Cardiovascular Surgical History: Reports: Coronary Artery Stent Male Surgical History: Reports: Lithotripsy (ESWL) Dermatological Surgical History: Reports: None Social & Family History - Family History Family Medical History: Noncontributory Cardiac: Reports: [place] - Tobacco Use Smoking Status *Q: Current Every Day Smoker Years of Tobacco use: 40 Packs/Tins Daily: 1 Second Hand Smoke Exposure: No - Caffeine Use Caffeine Use: Reports: Coffee - Alcohol Use Days Per Week of Alcohol Use: 0 Number of Drinks Per Day: 6 Total Drinks Per Week: 0 - Recreational Drug Use Recreational Drug Use: No Drug Use in Last 12 Months: No Recreational Drug Type: Reports: Marijuana/Hashish - Living Situation & Occupation Living situation: Reports: with Significant Other, Other (living in [facility]) Occupation: Unemployed ED ROS GENERAL - Review of Systems Review Of Systems: ROS reveals no pertinent complaints other than HPI. ED EXAM, SKIN/RASH Exam: See Below (See dictation) Course - Vital Signs Last Recorded V/S: Last Vital Signs Temp 36.4 C 01/19/18 00:27 Pulse 81 01/19/18 00:27 Resp 18 01/19/18 00:27 BP 162/72 H 01/19/18 00:27 Pulse Ox 95 01/19/18 00:27 - Orders/Labs/Meds Meds: Medications Discontinued Medications Generic Name Dose Route Start Last Admin Trade Name Rodríguez PRN Reason Stop Dose Admin Ketorolac Tromethamine 60 mg 01/19/18 00:55 01/19/18 01:00 Toradol IM 01/19/18 00:56 60 mg ONETIME ONE Administration Departure - Departure Time of Disposition: 01:08 Disposition: Home, Self-Care 01 Clinical Impression: Cellulitis Qualifiers: Site of cellulitis: buttock Qualified Code(s): L03.317 - Cellulitis of buttock - Discharge Information Referrals: PCP,None [Primary Care Provider] - Forms: ED Department Discharge Additional Instructions: The following information is given to patients seen in the emergency department who are being discharged to home. This information is to outline your options for follow-up care. We provide all patients seen in our emergency department with a follow-up referral. The need for follow-up, as well as the timing and circumstances, are variable depending upon the specifics of your emergency department visit. If you don't have a primary care physician on staff, we will provide you with a referral. We always advise you to contact your personal physician following an emergency department visit to inform them of the circumstance of the visit and for follow-up with them and/or the need for any referrals to a consulting specialist. The emergency department will also refer you to a specialist when appropriate. This referral assures that you have the opportunity for followup care with a specialist. All of these measure are taken in an effort to provide you with optimal care, which includes your followup. Under all circumstances we always encourage you to contact your private physician who remains a resource for coordinating your care. When calling for followup care, please make the office aware that this follow-up is from your recent emergency room visit. If for any reason you are refused follow-up, please contact the [facility] emergency department at and ask to speak to the emergency department charge nurse. [facility] Primary care- [place] [address] Please call your provider tomorrow, Yane Feliciano, to be seen by her and reevaluated the next several days. Keep her appointment tomorrow with Dr. Smith for other care plans that are in place. Please continue with the antibiotics were prescribed on Thursday, Bactrim, and add the new antibiotic that you're prescribed today, metronidazole/Flagyl. Please take [id number] pain medication as needed and take the stronger pain medications you have been prescribed as needed. Please take a stool softener with these pain medications as they will trigger constipation which may complicate the pain. The area of the infection has been marked so please return to ER if it extends significantly or you start having other symptoms as we discussed. Do warm sitz baths or place warm compresses on the area to bring any pus to the surface and return to ER for incision and drainage or tear provider if this occurs. Return to ER sooner as needed and as discussed.
[2018-01-19] MEDS ORDERED: Ketorolac 60 MG/2 ML SDV IM ONE (00:55)
[2018-01-19] MEDS ORDERED: metroNIDAZOLE 250 MG Tab PO ONE (01:11)
[2018-01-19 01:19] VITALS: BP 105/69
== END 2018-01-19 01:33 | disposition home or self-care (01) ==
LOC: MW.ED 00:27
DX: L03.317 Cellulitis of buttock (principal); F17.210 Nicotine dependence, cigarettes, uncomplicated; E78.00 Pure hypercholesterolemia, unspecified; I10 Essential (primary) hypertension; E66.9 Obesity, unspecified; K21.9 Gastro-esophageal reflux disease without esophagitis; Z87.442 Personal history of urinary calculi; Z95.5 Presence of coronary angioplasty implant and graft; Z79.01 Long term (current) use of anticoagulants; Z79.899 Other long term (current) drug therapy; Z68.38 Body mass index [BMI] 38.0-38.9, adult
CPT/HCPCS: 96372; 99283; A9270; J1885

== ENCOUNTER 2018-03-21 00:27 | Emergency (ER) | payer MEDICAID ==
[2018-03-21] MEDS ORDERED: Ketorolac 60 MG/2 ML SDV IM ONE (00:55)
[2018-03-21 01:04] VITALS: BP 127/82
--- NOTE | 2018-03-21 02:49 | EDM.PDOC ---
ED HPI GENERAL MEDICAL PROBLEM - General Chief Complaint: Back Pain or Injury Stated Complaint: SCIATIC NERVE PAIN- BOTH LEGS Time Seen by Provider: 03/21/18 00:33 Source of Information: Reports: Patient History Limitations: Reports: No Limitations - History of Present Illness INITIAL COMMENTS - FREE TEXT/NARRATIVE: HISTORY AND PHYSICAL: History of present illness: 53-year-old male presenting to receive her apartment with chief complaint of right-sided sciatic pain. Patient states that he's had this before. He has a history of sciatica. He does see Abigail Feliciano for his primary care. Currently denies any bowel or bladder incontinence. Denies any recent trauma. Denies any chest pain, palpitations, shortness breath, syncopal episodes, focal neurologic deficits. Review of systems: As per history of present illness and below otherwise all systems reviewed and negative. Past medical history: As per history of present illness and as reviewed below otherwise noncontributory. Surgical history: As per history of present illness and as reviewed below otherwise noncontributory. Social history: No reported history of drug or alcohol abuse. Family history: As per history of present illness and as reviewed below otherwise noncontributory. Physical exam: HEENT: Atraumatic, normocephalic, pupils reactive, negative for conjunctival pallor or scleral icterus, mucous membranes moist, throat clear, neck supple, nontender, trachea midline. Lungs: Clear to auscultation, breath sounds equal bilaterally, chest nontender. Heart: S1S2, regular, negative for clicks, rubs, or JVD. Abdomen: Soft, nondistended, nontender. Negative for masses or hepatosplenomegaly. Negative for costovertebral tenderness. Pelvis: Stable nontender. Genitourinary: Deferred. Rectal: Deferred. Extremities: Atraumatic, negative for cords or calf pain. Neurovascular unremarkable. Neuro: Awake, alert, oriented. Cranial nerves II through XII unremarkable. Cerebellum unremarkable. Motor and sensory unremarkable throughout. Exam nonfocal. Diagnostics: [] Therapeutics: Toradol 60 mg IM 1 Impression: Sciatica Plan: Patient was given 60 mg IV M Toradol which relieved his pain. He was instructed to follow-up with his primary care provider Abigail Feliciano. Is also instructed return to emergency department if he had a new or worsening symptoms. Definitive disposition and diagnosis as appropriate pending reevaluation and review of above. bilateral legs Pain Score (Numeric/FACES): 10 - Related Data Allergies Allergy/AdvReac Type Severity Reaction Status Date / Time No Known Allergies Allergy Verified 03/21/18 00:48 Home Meds: Home Meds Aspirin 81 mg PO DAILY 03/21/18 [History] Clopidogrel [Plavix] 75 mg PO DAILY 03/21/18 [History] FLUoxetine HCl [Fluoxetine HCl] 20 mg PO DAILY 03/21/18 [History] Losartan [Cozaar] 25 mg PO DAILY 03/21/18 [History] Omeprazole 20 mg PO DAILY 03/21/18 [History] Rosuvastatin [Crestor] 20 mg PO DAILY 03/21/18 [History] Topiramate [Topiramate ER] 25 mg PO DAILY 03/21/18 [History] lamoTRIgine 100 mg PO DAILY 03/21/18 [History] traZODone HCl [Trazodone HCl] 50 mg PO DAILY 03/21/18 [History] Past Medical History HEENT History: Reports: None Cardiovascular History: Reports: High Cholesterol, Hypertension, Stents Other Cardiovascular History: "Some kind of heart problem I'm being worked up for". Quad stents placed last thursday in [place]. Respiratory History: Reports: None Gastrointestinal History: Reports: GERD Genitourinary History: Reports: Renal Calculus Musculoskeletal History: Reports: Arthritis Other Musculoskeletal History: fx hand Neurological History: Reports: Other (See Below) Other Neuro History: pseudotumor cerebrii Psychiatric History: Reports: Anxiety, Depression Endocrine/Metabolic History: Reports: Obesity/BMI 30+ Hematologic History: Reports: Anticoagulation Therapy Immunologic History: Reports: None Oncologic (Cancer) History: Reports: None Dermatologic History: Reports: None - Infectious Disease History Infectious Disease History: Reports: Chicken Pox - Past Surgical History Head Surgeries/Procedures: Reports: None HEENT Surgical History: Reports: Naso-Sinus Surgery Cardiovascular Surgical History: Reports: Coronary Artery Stent Male Surgical History: Reports: Lithotripsy (ESWL) Oncologic Surgical History: Reports: None Dermatological Surgical History: Reports: None Social & Family History - Family History Family Medical History: Noncontributory Cardiac: Reports: [place] - Tobacco Use Smoking Status *Q: Current Every Day Smoker Years of Tobacco use: 40 Packs/Tins Daily: 1 Second Hand Smoke Exposure: No - Caffeine Use Caffeine Use: Reports: Coffee - Recreational Drug Use Recreational Drug Use: No - Living Situation & Occupation Living situation: Reports: with Significant Other, Other (living in [place]) Occupation: Unemployed ED ROS GENERAL - Review of Systems Review Of Systems: See Below ED EXAM, GENERAL - Physical Exam Exam: See Below Course - Vital Signs Last Recorded V/S: Last Vital Signs Temp 97.4 F 03/21/18 00:52 Pulse 83 03/21/18 00:52 Resp 18 03/21/18 00:52 BP 127/82 03/21/18 00:52 Pulse Ox 96 03/21/18 00:52 - Orders/Labs/Meds Meds: Medications Discontinued Medications Generic Name Dose Route Start Last Admin Trade Name Freq PRN Reason Stop Dose Admin Ketorolac Tromethamine 60 mg 03/21/18 00:55 03/21/18 01:22 Toradol IM 03/21/18 00:56 60 mg ONETIME ONE Administration Departure - Departure Time of Disposition: 02:48 Disposition: Home, Self-Care 01 Condition: Good Clinical Impression: Sciatica Qualifiers: Laterality: right Qualified Code(s): M54.31 - Sciatica, right side - Discharge Information Referrals: Yane Feliciano PA [Primary Care Provider] - Additional Instructions: My general discharge The following information is given to patients seen in the emergency department who are being discharged to home. This information is to outline your options for follow-up care. We provide all patients seen in our emergency department with a follow-up referral. The need for follow-up, as well as the timing and circumstances, are variable depending upon the specifics of your emergency department visit. If you don't have a primary care physician on staff, we will provide you with a referral. We always advise you to contact your personal physician following an emergency department visit to inform them of the circumstance of the visit and for follow-up with them and/or the need for any referrals to a consulting specialist. The emergency department will also refer you to a specialist when appropriate. This referral assures that you have the opportunity for follow-up care with a specialist. All of these measure are taken in an effort to provide you with optimal care, which includes your follow-up. Under all circumstances we always encourage you to contact your private physician who remains a resource for coordinating your care. When calling for follow-up care, please make the office aware that this follow-up is from your recent emergency room visit. If for any reason you are refused follow-up, please contact the [facility] Emergency Department at and asked to speak to the emergency department charge nurse. [facility] [address] [place] [id number] [address]
== END 2018-03-21 02:55 | disposition home or self-care (01) ==
LOC: MW.ED 00:27
DX: M54.31 Sciatica, right side (principal); E78.00 Pure hypercholesterolemia, unspecified; I10 Essential (primary) hypertension; K21.9 Gastro-esophageal reflux disease without esophagitis; Z87.442 Personal history of urinary calculi; F41.9 Anxiety disorder, unspecified; F32.9 Major depressive disorder, single episode, unspecified; E66.9 Obesity, unspecified; F17.210 Nicotine dependence, cigarettes, uncomplicated; Z95.5 Presence of coronary angioplasty implant and graft; Z79.82 Long term (current) use of aspirin; Z79.01 Long term (current) use of anticoagulants; Z79.899 Other long term (current) drug therapy; Z68.37 Body mass index [BMI] 37.0-37.9, adult
CPT/HCPCS: 96372; 99283; J1885

== ENCOUNTER 2018-11-06 04:56 | Emergency (ER) | payer MEDICAID ==
[2018-11-06] MEDS ORDERED: Alum Hydrox/Mag Hydrox/Simeth 15 ML, Lidocaine 2% 5 ML PO ONE ×2 (05:33)
[2018-11-06] MEDS ORDERED: Pantoprazole 40 MG Tab.CR PO ONE (05:34)
[2018-11-06] MEDS ORDERED: Ketorolac 60 MG/2 ML SDV IM ONE (05:37)
[2018-11-06] MEDS ORDERED: Benzocaine 20% Topical Spray UD MUCMEM ONE (05:38)
[2018-11-06] MEDS ORDERED: Lidocaine 2% Viscous Solution 100 ML Bottle PO ONE (05:38)
[2018-11-06] MEDS ORDERED: Lidocaine 2% Viscous Solution 15 ML Cup PO STA (05:41)
--- NOTE | 2018-11-06 05:41 | EDM.PDOC ---
ED HPI GENERAL MEDICAL PROBLEM - General Chief Complaint: General Stated Complaint: TOOTH PAIN Time Seen by Provider: 11/06/18 05:36 - History of Present Illness INITIAL COMMENTS - FREE TEXT/NARRATIVE: HISTORY AND PHYSICAL: History of present illness: Patient 53-year-old male presents with concern of dental pain he states has been worse over last several days he's been unable secure dental appointment this been no fever chills nausea vomiting or other complaints Review of systems: As per history of present illness and below otherwise all systems reviewed and negative. Past medical history: As per history of present illness and as reviewed below otherwise noncontributory. Surgical history: As per history of present illness and as reviewed below otherwise noncontributory. Social history: No reported history of drug or alcohol abuse. Family history: As per history of present illness and as reviewed below otherwise noncontributory. Physical exam: HEENT: Atraumatic, normocephalic, pupils reactive, negative for conjunctival pallor or scleral icterus, mucous membranes moist, throat clear, neck supple, nontender, trachea midline. Patient has generally poor dentition he has multiple dental caries and has a left lower molar with dental caries and secondary dental fracture noted Lungs: Clear to auscultation, breath sounds equal bilaterally, chest nontender. Heart: S1S2, regular, negative for clicks, rubs, or JVD. Abdomen: Soft, nondistended, nontender. Negative for masses or hepatosplenomegaly. Negative for costovertebral tenderness. Pelvis: Stable nontender. Genitourinary: Deferred. Rectal: Deferred. Extremities: Atraumatic, negative for cords or calf pain. Neurovascular unremarkable. Neuro: Awake, alert, oriented. Cranial nerves II through XII unremarkable. Cerebellum unremarkable. Motor and sensory unremarkable throughout. Exam nonfocal. Diagnostics: None Therapeutics: Dental ball Toradol 60 mg IM Impression: #1 dentalgia #2 dental abscess #3 dental caries with secondary dental fracture Definitive disposition and diagnosis as appropriate pending reevaluation and review of above. Left Lower Tooth/Teeth Pain Score (Numeric/FACES): 10 - Related Data Allergies Allergy/AdvReac Type Severity Reaction Status Date / Time No Known Allergies Allergy Verified 11/06/18 05:07 Home Meds: Home Meds Aspirin 81 mg PO DAILY 03/21/18 [History] Clopidogrel [Plavix] 75 mg PO DAILY 03/21/18 [History] FLUoxetine HCl [Fluoxetine HCl] 40 mg PO QAM 03/21/18 [History] Losartan [Cozaar] 25 mg PO QAM 03/21/18 [History] Omeprazole 20 mg PO DAILY 03/21/18 [History] Topiramate [Topiramate ER] 50 mg PO BID 03/21/18 [History] lamoTRIgine 200 mg PO BEDTIME 03/21/18 [History] Amitriptyline [Elavil] 20 mg PO BEDTIME 07/14/18 [History] Diclofenac Sodium [Voltaren] 75 mg PO BID 07/14/18 [History] Gabapentin [Neurontin] 300 mg PO TID 07/14/18 [History] Nitroglycerin 0.4 mg SL ASDIRECTED PRN 07/14/18 [History] Past Medical History HEENT History: Reports: None Cardiovascular History: Reports: High Cholesterol, Hypertension, Stents Other Cardiovascular History: "Some kind of heart problem I'm being worked up for". Quad stents placed last thursday in [place]. Respiratory History: Reports: None Gastrointestinal History: Reports: GERD Genitourinary History: Reports: Renal Calculus Musculoskeletal History: Reports: Arthritis Other Musculoskeletal History: fx hand Neurological History: Reports: Other (See Below) Other Neuro History: pseudotumor cerebrii Psychiatric History: Reports: Anxiety, Depression Endocrine/Metabolic History: Reports: Obesity/BMI 30+ Hematologic History: Reports: Anticoagulation Therapy Immunologic History: Reports: None Oncologic (Cancer) History: Reports: None Dermatologic History: Reports: None - Infectious Disease History Infectious Disease History: Reports: Chicken Pox - Past Surgical History Head Surgeries/Procedures: Reports: None HEENT Surgical History: Reports: Naso-Sinus Surgery Other Cardiovascular Surgeries/Procedures: coronary stent placement Oncologic Surgical History: Reports: None Dermatological Surgical History: Reports: None Social & Family History - Family History Family Medical History: Noncontributory Cardiac: Reports: NE - Tobacco Use Smoking Status *Q: Current Every Day Smoker Years of Tobacco use: 41 Packs/Tins Daily: 0.5 - Caffeine Use Caffeine Use: Reports: Coffee, Energy Drinks - Recreational Drug Use Recreational Drug Use: No - Living Situation & Occupation Living situation: Reports: with Significant Other, Other (living in [place]) Occupation: Unemployed ED ROS GENERAL - Review of Systems Review Of Systems: ROS reveals no pertinent complaints other than HPI. ED EXAM, GENERAL - Physical Exam Exam: See Below Course - Vital Signs Last Recorded V/S: Last Vital Signs Temp 35.9 C 11/06/18 05:04 Pulse 62 11/06/18 05:04 Resp 20 11/06/18 05:04 BP 167/95 H 11/06/18 05:04 Pulse Ox 98 11/06/18 05:04 - Orders/Labs/Meds Meds: Medications Discontinued Medications Generic Name Dose Route Start Last Admin Trade Name Rodríguez PRN Reason Stop Dose Admin Ketorolac Tromethamine 60 mg 11/06/18 05:37 Toradol IM 11/06/18 05:38 ONETIME ONE Departure - Departure Time of Disposition: 05:40 Disposition: Home, Self-Care 01 Condition: Good Clinical Impression: Dentalgia, Dental abscess - Discharge Information Referrals: PCP,None [Primary Care Provider] - Additional Instructions: The following information is given to patients seen in the emergency department who are being discharged to home. This information is to outline your options for follow-up care. We provide all patients seen in our emergency department with a follow-up referral. The need for follow-up, as well as the timing and circumstances, are variable depending upon the specifics of your emergency department visit. If you don't have a primary care physician on staff, we will provide you with a referral. We always advise you to contact your personal physician following an emergency department visit to inform them of the circumstance of the visit and for follow-up with them and/or the need for any referrals to a consulting specialist. The emergency department will also refer you to a specialist when appropriate. This referral assures that you have the opportunity for followup care with a specialist. All of these measure are taken in an effort to provide you with optimal care, which includes your followup. Under all circumstances we always encourage you to contact your private physician who remains a resource for coordinating your care. When calling for followup care, please make the office aware that this follow-up is from your recent emergency room visit. If for any reason you are refused follow-up, please contact the [facility] emergency department at and asked to speak to the emergency department charge nurse. Pen-Vee K Ultram as prescribed dental balls as directed follow-up dentist as discussed return as needed as discussed
[2018-11-06 06:09] VITALS: BP 145/78
== END 2018-11-06 06:15 | disposition home or self-care (01) ==
LOC: MW.ED 04:56
DX: K04.7 Periapical abscess without sinus (principal); E78.00 Pure hypercholesterolemia, unspecified; I10 Essential (primary) hypertension; F17.210 Nicotine dependence, cigarettes, uncomplicated; Z79.899 Other long term (current) drug therapy; Z79.82 Long term (current) use of aspirin
CPT/HCPCS: 96372; 99282; A9270; J1885

== ENCOUNTER 2018-12-06 20:10 | Observation (INO) | payer MEDICAID ==
--- NOTE | 2018-12-06 21:04 | EDM.PDOC ---
<Sergio Cruz - Last Filed: 12/06/18 23:31> ED HPI GENERAL MEDICAL PROBLEM - General Chief Complaint: Gastrointestinal Problem Stated Complaint: SORE BUTT Time Seen by Provider: 12/06/18 21:04 - Related Data Allergies Allergy/AdvReac Type Severity Reaction Status Date / Time No Known Allergies Allergy Verified 12/07/18 02:20 Home Meds: Home Meds Aspirin 81 mg PO DAILY 03/21/18 [History] Clopidogrel [Plavix] 75 mg PO DAILY 03/21/18 [History] FLUoxetine HCl [Fluoxetine HCl] 40 mg PO QAM 03/21/18 [History] Losartan [Cozaar] 25 mg PO QAM 03/21/18 [History] Topiramate [Topiramate ER] 50 mg PO BID 03/21/18 [History] lamoTRIgine 200 mg PO BEDTIME 03/21/18 [History] Amitriptyline [Elavil] 20 mg PO BEDTIME 07/14/18 [History] Diclofenac Sodium [Voltaren] 75 mg PO BID 07/14/18 [History] Nitroglycerin 0.4 mg SL ASDIRECTED PRN 07/14/18 [History] Carisoprodol 1 tab PO TID PRN 12/06/18 [History] Pantoprazole Sodium [Protonix] 20 mg PO ACBREAKFAST 12/06/18 [History] Rosuvastatin Calcium 1 tab PO DAILY 12/06/18 [History] ED ROS GENERAL - Review of Systems Review Of Systems: ROS reveals no pertinent complaints other than HPI. ED EXAM, GI/ABD - Physical Exam Exam: See Below (See dictation) Course - Vital Signs Text/Narrative:: Patient's emergency room course an unremarkable CT was remarkable for perianal abscess general surgery was present and will admit patient for definitive treatment in a.m. Patient be admitted with diagnosis of perianal abscess to Dr. Domínguez Last Recorded V/S: Last Vital Signs Temp 97.1 F 12/08/18 07:44 Pulse 96 12/08/18 07:44 Resp 18 12/08/18 07:56 BP 110/69 12/08/18 09:59 Pulse Ox 96 12/08/18 07:44 - Orders/Labs/Meds Labs: Laboratory Tests 12/06/18 12/06/18 12/06/18 Range/Units 21:05 21:05 22:00 WBC 16.79 H (4.0-11.0) K/uL RBC 5.18 (4.50-5.90) M/uL Hgb 15.9 (13.0-17.0) g/dL Hct 45.4 (38.0-50.0) % MCV 87.6 (80.0-98.0) fL MCH 30.7 (27.0-32.0) pg MCHC 35.0 (31.0-37.0) g/dL RDW Std Deviation 41.8 (28.0-62.0) fl RDW Coeff of Maribel 13 (11.0-15.0) % Plt Count 263 (150-400) K/uL MPV 9.20 (7.40-12.00) fL Neut % (Auto) 80.1 H (48.0-80.0) % Lymph % (Auto) 12.4 L (16.0-40.0) % [place] % (Auto) 6.9 (0.0-15.0) % Eos % (Auto) 0.5 (0.0-7.0) % Baso % (Auto) 0.1 (0.0-1.5) % Neut # (Auto) 13.4 H (1.4-5.7) K/uL Lymph # (Auto) 2.1 (0.6-2.4) K/uL [place] # (Auto) 1.2 H (0.0-0.8) K/uL Eos # (Auto) 0.1 (0.0-0.7) K/uL Baso # (Auto) 0.0 (0.0-0.1) K/uL Nucleated RBC % 0.0 /100WBC Nucleated RBCs # 0 K/uL Sodium 134 L (136-148) mmol/L Potassium 4.1 (3.5-5.1) mmol/L Chloride 101 (98-107) mmol/L Carbon Dioxide 23.5 (21.0-32.0) mmol/L BUN 11 (7.0-18.0) mg/dL Creatinine 1.0 (0.8-1.3) mg/dL Est Cr Clr Drug Dosing 95.92 mL/min Estimated GFR (MDRD) > 60.0 ml/min Glucose 99 (74-106) mg/dL Calcium 9.7 (8.5-10.1) mg/dL Total Bilirubin 0.5 (0.2-1.0) mg/dL AST 11 L (15-37) IU/L ALT 22 (14-63) IU/L Alkaline Phosphatase 118 H (46-116) U/L Total Protein 8.5 H (6.4-8.2) g/dL Albumin 4.1 (3.4-5.0) g/dL Globulin 4.4 H (2.6-4.0) g/dL Albumin/Globulin Ratio 0.9 (0.9-1.6) Urine Color YELLOW Urine Appearance CLEAR Urine pH 6.5 (5.0-8.0) Ur Specific [place] <= 1.005 (1.001-1.035) Urine Protein NEGATIVE (NEGATIVE) mg/dL Urine Glucose (UA) NEGATIVE (NEGATIVE) mg/dL Urine Ketones NEGATIVE (NEGATIVE) mg/dL Urine Occult Blood NEGATIVE (NEGATIVE) Urine Nitrite NEGATIVE (NEGATIVE) Urine Bilirubin NEGATIVE (NEGATIVE) Urine Urobilinogen 0.2 (<2.0) EU/dL Ur Leukocyte Esterase NEGATIVE (NEGATIVE) Meds: Medications Discontinued Medications Generic Name Dose Route Start Last Admin Trade Name Freq PRN Reason Stop Dose Admin Amitriptyline HCl 25 mg 12/07/18 21:00 12/07/18 20:04 Elavil PO 25 mg BEDTIME LIZ Administration Bupivacaine HCl Confirm 12/07/18 11:33 Marcaine 0.5% Administered 12/07/18 11:34 Dose 30 ml .ROUTE .STK-MED ONE Dexamethasone Confirm 12/07/18 12:46 Dexamethasone Administered 12/07/18 12:47 Dose 20 mg .ROUTE .STK-MED ONE Diphenhydramine HCl Confirm 12/07/18 12:46 Benadryl Administered 12/07/18 12:47 Dose 50 mg .ROUTE .STK-MED ONE Fentanyl Confirm 12/07/18 12:46 Sublimaze Administered 12/07/18 12:47 Dose 250 mcg .ROUTE .STK-MED ONE Fluoxetine HCl 40 mg 12/08/18 09:00 12/08/18 10:00 Prozac PO 40 mg QAM LIZ Administration Hydromorphone HCl 0.5 mg 12/07/18 00:00 12/07/18 06:37 Dilaudid IVPUSH 0.5 mg Q1H PRN Administration Pain (severe 7-10) Hydromorphone HCl Confirm 12/07/18 06:22 12/07/18 06:40 Dilaudid Administered 12/07/18 06:23 Not Given Dose 1 mg .ROUTE .STK-MED ONE Hydromorphone HCl 0.5 mg 12/07/18 07:30 Dilaudid IVPUSH Q1H PRN Pain (severe 7-10) Lactated Ringer's 1,000 mls @ 125 mls/hr 12/07/18 00:00 12/07/18 08:52 Ringers, Lactated IV 125 mls/hr ASDIRECTED LIZ Administration Piperacillin Sod/Tazobactam 50 mls @ 100 mls/hr 12/07/18 00:15 12/07/18 00:41 Sod 3.375 gm/ Sodium Chloride IV 100 mls/hr Q8H LIZ Administration Piperacillin Sod/Tazobactam 50 mls @ 100 mls/hr 12/07/18 08:00 12/07/18 08:11 Sod 3.375 gm/ Sodium Chloride IV 100 mls/hr Q6H LIZ Administration Lidocaine HCl Confirm 12/07/18 12:46 Xylocaine-Mpf 1% Administered 12/07/18 12:47 Dose 5 mls @ as directed .ROUTE .STK-MED ONE Iopamidol 100 ml 12/06/18 22:32 12/06/18 22:32 Isovue-370 (76%) IVPUSH 12/06/18 22:33 100 ml ONETIME ONE Administration Ketorolac Tromethamine 30 mg 12/06/18 21:16 12/06/18 21:25 Toradol IVPUSH 12/06/18 21:17 30 mg ONETIME ONE Administration Ketorolac Tromethamine Confirm 12/07/18 12:46 Toradol Administered 12/07/18 12:47 Dose 30 mg .ROUTE .STK-MED ONE Lamotrigine 200 mg 12/07/18 21:00 12/07/18 20:25 Lamotrigine PO 200 mg BEDTIME LIZ Administration Lidocaine/Epinephrine Confirm 12/07/18 11:14 Xylocaine 1% With Epinephrine 1:100,000 Administered 12/07/18 11:15 Dose 20 ml .ROUTE .STK-MED ONE Losartan Potassium 50 mg 12/07/18 09:00 12/08/18 09:59 Cozaar PO 50 mg DAILY LIZ Administration Metoclopramide HCl Confirm 12/07/18 12:46 Reglan Administered 12/07/18 12:47 Dose 10 mg .ROUTE .STK-MED ONE Midazolam HCl Confirm 12/07/18 12:46 Versed 1 Mg/Ml Administered 12/07/18 12:47 Dose 2 mg .ROUTE .STK-MED ONE Midazolam HCl Confirm 12/07/18 12:46 Versed 1 Mg/Ml Administered 12/07/18 12:47 Dose 2 mg .ROUTE .STK-MED ONE Morphine Sulfate 4 mg 12/06/18 21:35 12/06/18 22:30 Morphine IVPUSH 12/06/18 21:36 4 mg ONETIME ONE Administration Morphine Sulfate 4 mg 12/07/18 07:55 12/07/18 11:31 Morphine Sulfate IV 4 mg Q2H PRN Administration Pain Nicotine 14 mg 12/07/18 21:00 12/08/18 10:01 Habitrol TRDERM Not Given DAILY [facility] Ondansetron HCl 4 mg 12/07/18 00:00 Zofran IVPUSH Q6H PRN Nausea/Vomiting Ondansetron HCl Confirm 12/07/18 12:46 Zofran Administered 12/07/18 12:47 Dose 8 mg .ROUTE .STK-MED ONE Oxycodone/Acetaminophen 2 tab 12/07/18 00:00 12/08/18 06:50 Percocet 325-5 Mg PO 2 tab Q4H PRN Administration Pain (moderate 4-6) Pantoprazole Sodium 40 mg 12/07/18 12:45 12/08/18 06:45 Protonix PO 40 mg ACBREAKFAST LIZ Administration Propofol Confirm 12/07/18 12:46 Diprivan 20 Ml Administered 12/07/18 12:47 Dose 200 mg .ROUTE .STK-MED ONE Rosuvastatin Calcium 20 mg 12/07/18 13:00 12/08/18 10:01 Crestor PO 20 mg DAILY LIZ Administration Sodium Chloride 10 ml 12/07/18 00:00 Saline Flush FLUSH ASDIRECTED PRN Keep Vein Open Sodium Chloride 2.5 ml 12/07/18 00:00 Saline Flush FLUSH ASDIRECTED PRN Keep Vein Open Topiramate 50 mg 12/07/18 12:45 12/08/18 09:59 Topamax PO 50 mg BID LIZ Administration Departure - Departure Time of Disposition: 23:32 Disposition: Refer to Observation Condition: Good Clinical Impression: Perianal abscess - Discharge Information <Juan J Rosales E - Last Filed: 12/08/18 14:32> ED HPI GENERAL MEDICAL PROBLEM - General Source of Information: Reports: Patient History Limitations: Reports: No Limitations - History of Present Illness INITIAL COMMENTS - FREE TEXT/NARRATIVE: HISTORY AND PHYSICAL: History of present illness: Patient is a 53-year-old male who presents to the ED today with concerns of rectal pain. Patient states this is all going for about the past week but is progressively getting worse. He states that he woke up this morning and it felt swollen and so painful that he cannot sit. He rates his pain a 10 out of 10. Patient states he's never had this type of pain before. He does have a colonoscopy scheduled for in a few weeks due to a diagnosis of chronic constipation and has never had a colonoscopy prior. Patient states that he had a bowel movement yesterday and he is regular per his normal. She states he feels as if he been having fevers and chills on and off for the past week but has not checked her temperature at home. He has not taken medications for his symptoms. He states he is able to eat and drink per his normal. Patient denies abdominal pain, testicular pain, scrotal pain, nausea, vomiting, chest pain, shortness of breath, difficulties breathing, headache, the inability to urinate or have bowel movements, blood in stool or urine, difficulties urinating, burning with urination, or any other GI, , cardiovascular, or respiratory concerns. Patient does have a history of chronic constipation, coronary artery disease status post stent placement, hypertension , depression, and hyperlipidemia. Review of systems: As per history of present illness and below otherwise all systems reviewed and negative. Past medical history: As per history of present illness and as reviewed below otherwise noncontributory. Surgical history: As per history of present illness and as reviewed below otherwise noncontributory. Social history: See social history for further information Family history: As per history of present illness and as reviewed below otherwise noncontributory. Physical exam: General: Patient is alert, oriented, in no acute distress. He does appear uncomfortable sitting on exam table as he keeps trying to stand and reposition the pressure on his bottom. HEENT: Atraumatic, normocephalic, pupils equal and reactive bilaterally, negative for conjunctival pallor or scleral icterus, mucous membranes moist, TMs normal bilaterally, throat clear, neck supple, nontender, trachea midline. No drooling or trismus noted. No meningeal signs. No hot potato voice noted. Lungs: Clear to auscultation, breath sounds equal bilaterally, chest nontender. Heart: S1S2, regular rate and rhythm without overt murmur Abdomen: Soft, nondistended, nontender. Negative for masses or hepatosplenomegaly. Negative for costovertebral tenderness. Pelvis: Stable nontender. Genitourinary: Deferred. Rectal: Rectal exam is limited due to pain. Patient medial gluteal fold is slightly erythematous and severely tender to palpation. Rectal exam was severely tender and limited due to pain. Sphincter tone intact prostate consistency within normal limits without masses, occult stool blood negative. Skin: Intact, warm, dry. No lesions or rashes noted. Extremities: Atraumatic, moves all per self. He is negative for cords or calf pain. Neurovascular unremarkable. Neuro: Awake, alert, oriented. Cranial nerves II through XII unremarkable. Cerebellum unremarkable. Motor and sensory unremarkable throughout. Exam nonfocal. Notes: Heme occult was negative. Imaging and lab work results are pending. Dr Cruz was briefed on this patient and will assume care. Diagnostics: CBC, CMP, UA, pelvic CT Therapeutics: Morphine Impression: Perianal Abscess Plan: Observation admission Definitive disposition and diagnosis as appropriate pending reevaluation and review of above. debra-anal Pain Score (Numeric/FACES): 10 Past Medical History HEENT History: Reports: None Cardiovascular History: Reports: High Cholesterol, Hypertension, Stents Other Cardiovascular History: "Some kind of heart problem I'm being worked up for". Quad stents placed last thursday in [place]. Respiratory History: Reports: None Gastrointestinal History: Reports: GERD Genitourinary History: Reports: Renal Calculus Musculoskeletal History: Reports: Arthritis Other Musculoskeletal History: fx hand Neurological History: Reports: Other (See Below) Other Neuro History: pseudotumor cerebrii Psychiatric History: Reports: Anxiety, Depression Endocrine/Metabolic History: Reports: Obesity/BMI 30+ Hematologic History: Reports: Anticoagulation Therapy Immunologic History: Reports: None Oncologic (Cancer) History: Reports: None Dermatologic History: Reports: None - Infectious Disease History Infectious Disease History: Reports: Chicken Pox - Past Surgical History Head Surgeries/Procedures: Reports: None HEENT Surgical History: Reports: Naso-Sinus Surgery Other Cardiovascular Surgeries/Procedures: coronary stent placement Oncologic Surgical History: Reports: None Dermatological Surgical History: Reports: None Social & Family History - Family History Family Medical History: Noncontributory Cardiac: Reports: NM - Caffeine Use Caffeine Use: Reports: Coffee, Energy Drinks - Living Situation & Occupation Living situation: Reports: with Significant Other, Other (living in [facility]) Occupation: Unemployed Course - Vital Signs Last Recorded V/S: Last Vital Signs Temp 97.1 F 12/08/18 07:44 Pulse 96 12/08/18 07:44 Resp 18 12/08/18 07:56 BP 110/69 12/08/18 09:59 Pulse Ox 96 12/08/18 07:44 - Orders/Labs/Meds Labs: Laboratory Tests 12/06/18 12/06/18 12/06/18 Range/Units 21:05 21:05 22:00 WBC 16.79 H (4.0-11.0) K/uL RBC 5.18 (4.50-5.90) M/uL Hgb 15.9 (13.0-17.0) g/dL Hct 45.4 (38.0-50.0) % MCV 87.6 (80.0-98.0) fL MCH 30.7 (27.0-32.0) pg MCHC 35.0 (31.0-37.0) g/dL RDW Std Deviation 41.8 (28.0-62.0) fl RDW Coeff of Maribel 13 (11.0-15.0) % Plt Count 263 (150-400) K/uL MPV 9.20 (7.40-12.00) fL Neut % (Auto) 80.1 H (48.0-80.0) % Lymph % (Auto) 12.4 L (16.0-40.0) % [place] % (Auto) 6.9 (0.0-15.0) % Eos % (Auto) 0.5 (0.0-7.0) % Baso % (Auto) 0.1 (0.0-1.5) % Neut # (Auto) 13.4 H (1.4-5.7) K/uL Lymph # (Auto) 2.1 (0.6-2.4) K/uL [place] # (Auto) 1.2 H (0.0-0.8) K/uL Eos # (Auto) 0.1 (0.0-0.7) K/uL Baso # (Auto) 0.0 (0.0-0.1) K/uL Nucleated RBC % 0.0 /100WBC Nucleated RBCs # 0 K/uL Sodium 134 L (136-148) mmol/L Potassium 4.1 (3.5-5.1) mmol/L Chloride 101 (98-107) mmol/L Carbon Dioxide 23.5 (21.0-32.0) mmol/L BUN 11 (7.0-18.0) mg/dL Creatinine 1.0 (0.8-1.3) mg/dL Est Cr Clr Drug Dosing 95.92 mL/min Estimated GFR (MDRD) > 60.0 ml/min Glucose 99 (74-106) mg/dL Calcium 9.7 (8.5-10.1) mg/dL Total Bilirubin 0.5 (0.2-1.0) mg/dL AST 11 L (15-37) IU/L ALT 22 (14-63) IU/L Alkaline Phosphatase 118 H (46-116) U/L Total Protein 8.5 H (6.4-8.2) g/dL Albumin 4.1 (3.4-5.0) g/dL Globulin 4.4 H (2.6-4.0) g/dL Albumin/Globulin Ratio 0.9 (0.9-1.6) Urine Color YELLOW Urine Appearance CLEAR Urine pH 6.5 (5.0-8.0) Ur Specific [place] <= 1.005 (1.001-1.035) Urine Protein NEGATIVE (NEGATIVE) mg/dL Urine Glucose (UA) NEGATIVE (NEGATIVE) mg/dL Urine Ketones NEGATIVE (NEGATIVE) mg/dL Urine Occult Blood NEGATIVE (NEGATIVE) Urine Nitrite NEGATIVE (NEGATIVE) Urine Bilirubin NEGATIVE (NEGATIVE) Urine Urobilinogen 0.2 (<2.0) EU/dL Ur Leukocyte Esterase NEGATIVE (NEGATIVE) Meds: Medications Discontinued Medications Generic Name Dose Route Start Last Admin Trade Name Freq PRN Reason Stop Dose Admin Amitriptyline HCl 25 mg 12/07/18 21:00 12/07/18 20:04 Elavil PO 25 mg BEDTIME LIZ Administration Bupivacaine HCl Confirm 12/07/18 11:33 Marcaine 0.5% Administered 12/07/18 11:34 Dose 30 ml .ROUTE .STK-MED ONE Dexamethasone Confirm 12/07/18 12:46 Dexamethasone Administered 12/07/18 12:47 Dose 20 mg .ROUTE .STK-MED ONE Diphenhydramine HCl Confirm 12/07/18 12:46 Benadryl Administered 12/07/18 12:47 Dose 50 mg .ROUTE .STK-MED ONE Fentanyl Confirm 12/07/18 12:46 Sublimaze Administered 12/07/18 12:47 Dose 250 mcg .ROUTE .STK-MED ONE Fluoxetine HCl 40 mg 12/08/18 09:00 12/08/18 10:00 Prozac PO 40 mg QAM LIZ Administration Hydromorphone HCl 0.5 mg 12/07/18 00:00 12/07/18 06:37 Dilaudid IVPUSH 0.5 mg Q1H PRN Administration Pain (severe 7-10) Hydromorphone HCl Confirm 12/07/18 06:22 12/07/18 06:40 Dilaudid Administered 12/07/18 06:23 Not Given Dose 1 mg .ROUTE .STK-MED ONE Hydromorphone HCl 0.5 mg 12/07/18 07:30 Dilaudid IVPUSH Q1H PRN Pain (severe 7-10) Lactated Ringer's 1,000 mls @ 125 mls/hr 12/07/18 00:00 12/07/18 08:52 Ringers, Lactated IV 125 mls/hr ASDIRECTED LIZ Administration Piperacillin Sod/Tazobactam 50 mls @ 100 mls/hr 12/07/18 00:15 12/07/18 00:41 Sod 3.375 gm/ Sodium Chloride IV 100 mls/hr Q8H LIZ Administration Piperacillin Sod/Tazobactam 50 mls @ 100 mls/hr 12/07/18 08:00 12/07/18 08:11 Sod 3.375 gm/ Sodium Chloride IV 100 mls/hr Q6H LIZ Administration Lidocaine HCl Confirm 12/07/18 12:46 Xylocaine-Mpf 1% Administered 12/07/18 12:47 Dose 5 mls @ as directed .ROUTE .STK-MED ONE Iopamidol 100 ml 12/06/18 22:32 12/06/18 22:32 Isovue-370 (76%) IVPUSH 12/06/18 22:33 100 ml ONETIME ONE Administration Ketorolac Tromethamine 30 mg 12/06/18 21:16 12/06/18 21:25 Toradol IVPUSH 12/06/18 21:17 30 mg ONETIME ONE Administration Ketorolac Tromethamine Confirm 12/07/18 12:46 Toradol Administered 12/07/18 12:47 Dose 30 mg .ROUTE .STK-MED ONE Lamotrigine 200 mg 12/07/18 21:00 12/07/18 20:25 Lamotrigine PO 200 mg BEDTIME LIZ Administration Lidocaine/Epinephrine Confirm 12/07/18 11:14 Xylocaine 1% With Epinephrine 1:100,000 Administered 12/07/18 11:15 Dose 20 ml .ROUTE .STK-MED ONE Losartan Potassium 50 mg 12/07/18 09:00 12/08/18 09:59 Cozaar PO 50 mg DAILY LIZ Administration Metoclopramide HCl Confirm 12/07/18 12:46 Reglan Administered 12/07/18 12:47 Dose 10 mg .ROUTE .STK-MED ONE Midazolam HCl Confirm 12/07/18 12:46 Versed 1 Mg/Ml Administered 12/07/18 12:47 Dose 2 mg .ROUTE .STK-MED ONE Midazolam HCl Confirm 12/07/18 12:46 Versed 1 Mg/Ml Administered 12/07/18 12:47 Dose 2 mg .ROUTE .STK-MED ONE Morphine Sulfate 4 mg 12/06/18 21:35 12/06/18 22:30 Morphine IVPUSH 12/06/18 21:36 4 mg ONETIME ONE Administration Morphine Sulfate 4 mg 12/07/18 07:55 12/07/18 11:31 Morphine Sulfate IV 4 mg Q2H PRN Administration Pain Nicotine 14 mg 12/07/18 21:00 12/08/18 10:01 Habitrol TRDERM Not Given DAILY LIZ Ondansetron HCl 4 mg 12/07/18 00:00 Zofran IVPUSH Q6H PRN Nausea/Vomiting Ondansetron HCl Confirm 12/07/18 12:46 Zofran Administered 12/07/18 12:47 Dose 8 mg .ROUTE .STK-MED ONE Oxycodone/Acetaminophen 2 tab 12/07/18 00:00 12/08/18 06:50 Percocet 325-5 Mg PO 2 tab Q4H PRN Administration Pain (moderate 4-6) Pantoprazole Sodium 40 mg 12/07/18 12:45 12/08/18 06:45 Protonix PO 40 mg ACBREAKFAST LIZ Administration Propofol Confirm 12/07/18 12:46 Diprivan 20 Ml Administered 12/07/18 12:47 Dose 200 mg .ROUTE .STK-MED ONE Rosuvastatin Calcium 20 mg 12/07/18 13:00 12/08/18 10:01 Crestor PO 20 mg DAILY LIZ Administration Sodium Chloride 10 ml 12/07/18 00:00 Saline Flush FLUSH ASDIRECTED PRN Keep Vein Open Sodium Chloride 2.5 ml 12/07/18 00:00 Saline Flush FLUSH ASDIRECTED PRN Keep Vein Open Topiramate 50 mg 12/07/18 12:45 12/08/18 09:59 Topamax PO 50 mg BID LIZ Administration
[2018-12-06] MEDS ORDERED: Ketorolac 30 MG/ML SDV IVPUSH ONE (21:16)
[2018-12-06] MEDS ORDERED: Morphine 4 MG/ML Syringe IVPUSH ONE (21:35)
[2018-12-06 21:54] LABS: CHLORIDE,CL 101 mmol/L (98-107); SODIUM,NA 134 mmol/L (136-148)
[2018-12-06] MEDS ORDERED: Iopamidol 755 Mg/ML 100 ML Bottle IVPUSH ONE (22:32)
--- NOTE | 2018-12-06 23:01 | CT ---
INDICATION: Perirectal pain TECHNIQUE: CT pelvis with 100 cc Isovue 370 intravenous contrast. COMPARISON: None FINDINGS: There are no dilated loops of large or small intestine and the appendix is identified and is unremarkable. Bladder and prostate unremarkable. At the level of the anal canal there is a focal fluid collection posteriorly measuring 2.4 x 2.0 x 1.4 centimeters (201, 76; 203, 82). There is mild adjacent fat stranding. Subcentimeter inguinal lymph nodes are present. IMPRESSION: Perianal abscess posterior to the anal canal measuring up to 2.4 centimeters. Please note that all CT scans at this facility use dose modulation, iterative reconstruction, and/or weight-based dosing when appropriate to reduce radiation dose to as low as reasonably achievable. Dictated by Stef Holguin MD @ Dec 06 2018 10:55PM Signed by Dr. Stef Holguin @ Dec 06 2018 11:00PM
--- NOTE | 2018-12-06 23:54 | PCM.CONS ---
H&P History of Present Illness - General Date of Service: 12/06/18 Admit Problem/Dx: Admission Diagnosis/Problem Admission Diagnosis/Problem Perianal abscess Source of Information: Patient History Limitations: Reports: No Limitations - History of Present Illness Initial Comments - Free Text/Narative: Patient is a 53 year old male who presents with 2-3 days of perianal pain. He is chronically constipated and was scheduled with my partner for a colonoscopy in the next couple weeks. His pain today is 10/10 and he cannot sit. Last BM was yesterday and was normal appearing. He presented to the ER. Vitals are stable. On physical exam he was extremely tender along the posterior midline of his anus. WBC is 16K with a left shift. CT of the pelvis showed a perianal abscess posterior to the anal canal measuring 2.4 cm debra-anal Pain Score (Numeric/FACES): 10 - Related Data Allergies/Adverse Reactions: Allergies Allergy/AdvReac Type Severity Reaction Status Date / Time No Known Allergies Allergy Verified 12/06/18 21:07 Home Medications: Home Meds Aspirin 81 mg PO DAILY 03/21/18 [History] Clopidogrel [Plavix] 75 mg PO DAILY 03/21/18 [History] FLUoxetine HCl [Fluoxetine HCl] 40 mg PO QAM 03/21/18 [History] Losartan [Cozaar] 50 mg PO QAM 03/21/18 [History] Topiramate [Topiramate ER] 50 mg PO BID 03/21/18 [History] lamoTRIgine 200 mg PO BEDTIME 03/21/18 [History] Amitriptyline [Elavil] 20 mg PO BEDTIME 07/14/18 [History] Diclofenac Sodium [Voltaren] 75 mg PO BID 07/14/18 [History] Nitroglycerin 0.4 mg SL ASDIRECTED PRN 07/14/18 [History] Carisoprodol 1 tab PO TID PRN 12/06/18 [History] Pantoprazole Sodium [Protonix] 1 tab PO DAILY 12/06/18 [History] Rosuvastatin Calcium 1 tab PO DAILY 12/06/18 [History] Past Medical History HEENT History: Reports: None Cardiovascular History: Reports: High Cholesterol, Hypertension, Stents Other Cardiovascular History: "Some kind of heart problem I'm being worked up for". Quad stents placed last thursday in [place]. Respiratory History: Reports: None Gastrointestinal History: Reports: GERD Genitourinary History: Reports: Renal Calculus Musculoskeletal History: Reports: Arthritis Other Musculoskeletal History: fx hand Neurological History: Reports: Other (See Below) Other Neuro History: pseudotumor cerebrii Psychiatric History: Reports: Anxiety, Depression Endocrine/Metabolic History: Reports: Obesity/BMI 30+ Hematologic History: Reports: Anticoagulation Therapy Immunologic History: Reports: None Oncologic (Cancer) History: Reports: None Dermatologic History: Reports: None - Infectious Disease History Infectious Disease History: Reports: Chicken Pox - Past Surgical History Head Surgeries/Procedures: Reports: None HEENT Surgical History: Reports: Naso-Sinus Surgery Other Cardiovascular Surgeries/Procedures: coronary stent placement Oncologic Surgical History: Reports: None Dermatological Surgical History: Reports: None Social & Family History - Family History Family Medical History: Noncontributory Cardiac: Reports: [place] - Tobacco Use Smoking Status *Q: Current Every Day Smoker Years of Tobacco use: 40 Packs/Tins Daily: 1 - Caffeine Use Caffeine Use: Reports: Coffee, Energy Drinks - Recreational Drug Use Recreational Drug Use: No - Living Situation & Occupation Living situation: Reports: with Significant Other, Other (living in [facility]) Occupation: Unemployed H&P Review of Systems - Review of Systems: Review Of Systems: ROS reveals no pertinent complaints other than HPI. Exam - Exam Exam: See Below - Vital Signs Vital Signs: Last Vital Signs Temp 36.4 C 12/06/18 21:00 Pulse 83 12/06/18 22:32 Resp 18 12/06/18 22:32 BP 124/61 12/06/18 22:32 Pulse Ox 98 12/06/18 21:00 Weight: 117 kg - Exam General: Alert, Oriented HEENT: Conjunctiva Clear, Mucosa Moist & Metter, Posterior Pharynx Clear Neck: Supple, Trachea Midline Lungs: Clear to Auscultation, Normal Respiratory Effort Cardiovascular: Regular Rate, Regular Rhythm GI/Abdominal Exam: Soft, Non-Tender, No Distention, No Mass Rectal (Males) Exam: Tenderness (posterior midline), Other (erythema around posterior anoderm ) Back Exam: Normal Inspection, Full Range of Motion - Patient Data Lab Results Last 24 hrs: Laboratory Results - last 24 hr 12/06/18 12/06/18 12/06/18 Range/Units 21:05 21:05 22:00 WBC 16.79 H (4.0-11.0) K/uL RBC 5.18 (4.50-5.90) M/uL Hgb 15.9 (13.0-17.0) g/dL Hct 45.4 (38.0-50.0) % MCV 87.6 (80.0-98.0) fL MCH 30.7 (27.0-32.0) pg MCHC 35.0 (31.0-37.0) g/dL RDW Std Deviation 41.8 (28.0-62.0) fl RDW Coeff of Maribel 13 (11.0-15.0) % Plt Count 263 (150-400) K/uL MPV 9.20 (7.40-12.00) fL Neut % (Auto) 80.1 H (48.0-80.0) % Lymph % (Auto) 12.4 L (16.0-40.0) % [place] % (Auto) 6.9 (0.0-15.0) % Eos % (Auto) 0.5 (0.0-7.0) % Baso % (Auto) 0.1 (0.0-1.5) % Neut # (Auto) 13.4 H (1.4-5.7) K/uL Lymph # (Auto) 2.1 (0.6-2.4) K/uL [place] # (Auto) 1.2 H (0.0-0.8) K/uL Eos # (Auto) 0.1 (0.0-0.7) K/uL Baso # (Auto) 0.0 (0.0-0.1) K/uL Nucleated RBC % 0.0 /100WBC Nucleated RBCs # 0 K/uL Sodium 134 L (136-148) mmol/L Potassium 4.1 (3.5-5.1) mmol/L Chloride 101 (98-107) mmol/L Carbon Dioxide 23.5 (21.0-32.0) mmol/L BUN 11 (7.0-18.0) mg/dL Creatinine 1.0 (0.8-1.3) mg/dL Est Cr Clr Drug Dosing 95.92 mL/min Estimated GFR (MDRD) > 60.0 ml/min Glucose 99 (74-106) mg/dL Calcium 9.7 (8.5-10.1) mg/dL Total Bilirubin 0.5 (0.2-1.0) mg/dL AST 11 L (15-37) IU/L ALT 22 (14-63) IU/L Alkaline Phosphatase 118 H (46-116) U/L Total Protein 8.5 H (6.4-8.2) g/dL Albumin 4.1 (3.4-5.0) g/dL Globulin 4.4 H (2.6-4.0) g/dL Albumin/Globulin Ratio 0.9 (0.9-1.6) Urine Color YELLOW Urine Appearance CLEAR Urine pH 6.5 (5.0-8.0) Ur Specific [place] <= 1.005 (1.001-1.035) Urine Protein NEGATIVE (NEGATIVE) mg/dL Urine Glucose (UA) NEGATIVE (NEGATIVE) mg/dL Urine Ketones NEGATIVE (NEGATIVE) mg/dL Urine Occult Blood NEGATIVE (NEGATIVE) Urine Nitrite NEGATIVE (NEGATIVE) Urine Bilirubin NEGATIVE (NEGATIVE) Urine Urobilinogen 0.2 (<2.0) EU/dL Ur Leukocyte Esterase NEGATIVE (NEGATIVE) Result Diagrams: 12/06/18 21:05 12/06/18 21:05 Consult PN Assessment/Plan Procedures: Procedures ASSAY GLUCOSE BLOOD QUANT (04/19/18) ASSAY OF AMYLASE (07/15/17) ASSAY OF CK (CPK) (07/14/16) ASSAY OF ESTRADIOL (12/08/17) ASSAY OF FREE TESTOSTERONE (12/08/17) ASSAY OF GONADOTROPIN (LH) (12/08/17) ASSAY OF INSULIN (11/16/18) ASSAY OF LIPASE (07/28/18) ASSAY OF NATRIURETIC PEPTIDE (07/14/16) ASSAY OF PROTEIN OTHER (01/13/18) ASSAY OF TOTAL TESTOSTERONE (12/08/17) ASSAY OF TROPONIN QUANT (07/28/18) ASSAY THYROID STIM HORMONE (11/16/18) BODY FLUID CELL COUNT (01/13/18) C/O FOR ORTHOTIC/PROSTH USE (05/01/17) CARDIOVASCULAR STRESS TEST (01/22/17) CHEST X-RAY 1 VIEW FRONTAL (07/15/17) COMPLETE CBC W/AUTO DIFF WBC (11/16/18) COMPREHEN METABOLIC PANEL (11/16/18) CREATINE MB FRACTION (07/14/16) CRYPTOCOCCUS NEOFORM AG IA (01/13/18) CT HEAD/BRAIN W/O DYE (04/14/16) CT THORAX W/O DYE (01/01/18) CULTURE OTHR SPECIMN AEROBIC (01/15/18) DX MAMMO INCL CAD BI (11/24/17) EGD DIAGNOSTIC BRUSH WASH (05/28/17) ELECTROCARDIOGRAM TRACING (07/28/18) EMERGENCY DEPT VISIT (11/06/18) EMERGENCY DEPT VISIT (07/28/18) EMERGENCY DEPT VISIT (06/24/18) EMERGENCY DEPT VISIT (03/21/18) EMERGENCY DEPT VISIT (07/15/17) EMERGENCY DEPT VISIT (04/14/16) EMERGENCY DEPT VISIT (03/12/15) EMERGENCY DEPT VISIT (12/16/14) GLUCOSE OTHER FLUID (01/13/18) HELICOBACTER PYLORI ANTIBODY (12/08/16) HEPATITIS C AB TEST (11/16/18) HIV-1 AG W/HIV-1 & HIV-2 AB (11/16/18) HOT OR COLD PACKS THERAPY (05/01/17) HT MUSCLE IMAGE SPECT SING (01/26/17) HYDRATE IV INFUSION ADD-ON (07/28/18) HYDRATION IV INFUSION INIT (07/15/17) LIPID PANEL (11/16/18) METABOLIC PANEL TOTAL CA (02/26/18) MRI BRAIN STEM W/O DYE (08/17/17) MRI LUMBAR SPINE W/O DYE (04/02/18) ORTHOTIC MGMT&TRAINJ 1ST ENC (05/01/17) PROTHROMBIN TIME (07/28/18) REMOTE 30 DAY ECG REV/REPORT (01/21/17) ROUTINE VENIPUNCTURE (07/28/18) SMEAR GRAM STAIN (01/13/18) SPINAL FLUID TAP DIAGNOSTIC (01/13/18) THER/PROPH/DIAG INJ IV PUSH (07/28/18) THER/PROPH/DIAG INJ SC/IM (11/06/18) THER/PROPH/DIAG IV INF INIT (05/16/16) TTE W/DOPPLER COMPLETE (01/21/17) TX/PRO/DX INJ NEW DRUG ADDON (05/16/16) ULTRASOUND BREAST COMPLETE (11/24/17) URINALYSIS AUTO W/SCOPE (07/28/18) US EXAM SCROTUM (09/17/17) VASCULAR STUDY (09/17/17) X-RAY EXAM CHEST 1 VIEW (07/28/18) X-RAY EXAM NECK SPINE 2-3 VW (09/15/17) X-RAY EXAM OF HAND (04/28/17) X-RAY EXAM OF SHOULDER (08/14/17) X-RAY EXAM OF SHOULDER (06/02/17) (1) Perianal abscess SNOMED Code(s): 34625392 Code(s): K61.0 - ANAL ABSCESS Current Visit: Yes Problem List Initiated/Reviewed/Updated: Yes Plan: Patient is a 53 year old male with a perianal abscess. We discussed the pathophysiology of this disease process. Patient requires operative incision and debridement with possible fistulotomy or seton placement. We discussed the procedure, expected perioperative course, and risks including bleeding infection or damage to surrounding structures that could alter continence. He verbalized understanding and wishes to proceed. I will perform this tomorrow. He will be admited to the floor with IV pain meds, IV antibiotics, and npo other than sips with meds.
[2018-12-07] MEDS ORDERED: Sodium Chloride 0.9% 2.5 ML Syringe FLUSH PRN
[2018-12-07] MEDS ORDERED: Ondansetron 4 MG/2 ML SDV IVPUSH PRN
[2018-12-07] MEDS ORDERED: Acetaminophen/oxyCODONE 325-5 MG Tab PO PRN
[2018-12-07] MEDS ORDERED: Sodium Chloride 0.9% 10 ML Syringe FLUSH PRN
[2018-12-07] MEDS ORDERED: HYDROmorphone 2 MG/ML SDV IVPUSH PRN
[2018-12-07] MEDS ORDERED: Piperacillin/Tazobactam 3.375 GM in Sodium Chloride 0.9% 50 ML IV SCH ×2 (00:15→08:00)
[2018-12-07] MEDS: Lactated Ringers 1,000 ML IV SCH ×2 (00:40→08:52)
[2018-12-07] MEDS ORDERED: HYDROmorphone 1 MG/ML Syringe ONE (06:22)
[2018-12-07] MEDS ORDERED: HYDROmorphone 1 MG/ML Syringe IVPUSH PRN (07:30)
--- NOTE | 2018-12-07 07:31 | PCM.SN ---
- Free Text/Narrative Note: Patient is a 53 year old male with a perianal abscess. He is stable this am and pain is well controlled with IV pain medications. Vitals stable. Will plan for I and D of perianal abscess this afternoon.
--- NOTE | 2018-12-07 07:32 | PCM.PREANE ---
Preanesthetic Assessment - Anesthesia/Transfusion/Family Hx Anesthesia History: Prior Anesthesia Without Reaction Family History of Anesthesia Reaction: No Transfusion History: No Prior Transfusion(s) - Review of Systems General: No Symptoms, Night Sweats Cardiovascular: No Symptoms Gastrointestinal: No Symptoms Neurological: No Symptoms Other: Reports: None - Physical Assessment O2 Sat by Pulse Oximetry: 96 Respiratory Rate: 18 Vital Signs: Last Vital Signs Temp 97.8 F 12/07/18 03:02 Pulse 68 12/07/18 03:02 Resp 18 12/07/18 03:02 BP 112/58 L 12/07/18 03:02 Pulse Ox 96 12/07/18 03:02 Height: 6 ft Weight: 118.614 kg ASA Class: 3 Mental Status: Alert & Oriented x3 Airway Class: Mallampati = 2 Dentition: Reports: Normal Dentition Thyro-Mental Finger Breadths: 3 Mouth Opening Finger Breadths: 3 ROM/Head Extension: Full Lungs: Clear to Auscultation, Normal Respiratory Effort Cardiovascular: Regular Rate, Regular Rhythm - Lab Values: Laboratory Last Values WBC 16.79 K/uL (4.0-11.0) H 12/06/18 21:05 RBC 5.18 M/uL (4.50-5.90) 12/06/18 21:05 Hgb 15.9 g/dL (13.0-17.0) 12/06/18 21:05 Hct 45.4 % (38.0-50.0) 12/06/18 21:05 MCV 87.6 fL (80.0-98.0) 12/06/18 21:05 MCH 30.7 pg (27.0-32.0) 12/06/18 21:05 MCHC 35.0 g/dL (31.0-37.0) 12/06/18 21:05 RDW Std Deviation 41.8 fl (28.0-62.0) 12/06/18 21:05 RDW Coeff of Maribel 13 % (11.0-15.0) 12/06/18 21:05 Plt Count 263 K/uL (150-400) 12/06/18 21:05 MPV 9.20 fL (7.40-12.00) 12/06/18 21:05 Neut % (Auto) 80.1 % (48.0-80.0) H 12/06/18 21:05 Lymph % (Auto) 12.4 % (16.0-40.0) L 12/06/18 21:05 [place] % (Auto) 6.9 % (0.0-15.0) 12/06/18 21:05 Eos % (Auto) 0.5 % (0.0-7.0) 12/06/18 21:05 Baso % (Auto) 0.1 % (0.0-1.5) 12/06/18 21:05 Neut # (Auto) 13.4 K/uL (1.4-5.7) H 12/06/18 21:05 Lymph # (Auto) 2.1 K/uL (0.6-2.4) 12/06/18 21:05 [place] # (Auto) 1.2 K/uL (0.0-0.8) H 12/06/18 21:05 Eos # (Auto) 0.1 K/uL (0.0-0.7) 12/06/18 21:05 Baso # (Auto) 0.0 K/uL (0.0-0.1) 12/06/18 21:05 Nucleated RBC % 0.0 /100WBC 12/06/18 21:05 Nucleated RBCs # 0 K/uL 12/06/18 21:05 Sodium 134 mmol/L (136-148) L 12/06/18 21:05 Potassium 4.1 mmol/L (3.5-5.1) 12/06/18 21:05 Chloride 101 mmol/L (98-107) 12/06/18 21:05 Carbon Dioxide 23.5 mmol/L (21.0-32.0) 12/06/18 21:05 BUN 11 mg/dL (7.0-18.0) 12/06/18 21:05 Creatinine 1.0 mg/dL (0.8-1.3) 12/06/18 21:05 Est Cr Clr Drug Dosing 95.92 mL/min 12/06/18 21:05 Estimated GFR (MDRD) > 60.0 ml/min 12/06/18 21:05 Glucose 99 mg/dL (74-106) 12/06/18 21:05 Calcium 9.7 mg/dL (8.5-10.1) 12/06/18 21:05 Total Bilirubin 0.5 mg/dL (0.2-1.0) 12/06/18 21:05 AST 11 IU/L (15-37) L 12/06/18 21:05 ALT 22 IU/L (14-63) 12/06/18 21:05 Alkaline Phosphatase 118 U/L (46-116) H 12/06/18 21:05 Total Protein 8.5 g/dL (6.4-8.2) H 12/06/18 21:05 Albumin 4.1 g/dL (3.4-5.0) 12/06/18 21:05 Globulin 4.4 g/dL (2.6-4.0) H 12/06/18 21:05 Albumin/Globulin Ratio 0.9 (0.9-1.6) 12/06/18 21:05 Urine Color YELLOW 12/06/18 22:00 Urine Appearance CLEAR 12/06/18 22:00 Urine pH 6.5 (5.0-8.0) 12/06/18 22:00 Ur Specific [place] <= 1.005 (1.001-1.035) 12/06/18 22:00 Urine Protein NEGATIVE mg/dL (NEGATIVE) 12/06/18 22:00 Urine Glucose (UA) NEGATIVE mg/dL (NEGATIVE) 12/06/18 22:00 Urine Ketones NEGATIVE mg/dL (NEGATIVE) 12/06/18 22:00 Urine Occult Blood NEGATIVE (NEGATIVE) 12/06/18 22:00 Urine Nitrite NEGATIVE (NEGATIVE) 12/06/18 22:00 Urine Bilirubin NEGATIVE (NEGATIVE) 12/06/18 22:00 Urine Urobilinogen 0.2 EU/dL (<2.0) 12/06/18 22:00 Ur Leukocyte Esterase NEGATIVE (NEGATIVE) 12/06/18 22:00 - Allergies Allergies/Adverse Reactions: Allergies Allergy/AdvReac Type Severity Reaction Status Date / Time No Known Allergies Allergy Verified 12/07/18 02:20 - Acknowledgements Anesthesia Type Planned: General Anesthesia, MAC Pt an Appropriate Candidate for the Planned Anesthesia: Yes Alternatives and Risks of Anesthesia Discussed w Pt/Guardian: Yes Pt/Guardian Understands and Agrees with Anesthesia Plan: Yes PreAnesthesia Questionnaire HEENT History: Reports: None, Other (See Below) Other HEENT History: Wears reading glasses. Cardiovascular History: Reports: High Cholesterol, Hypertension, HI (Denies any further chest pain since stents were placed), Stents Other Cardiovascular History: "Some kind of heart problem I'm being worked up for". Quad stents [place] 2014 Respiratory History: Reports: COPD, Other (See Below) (Chronic smoker) Gastrointestinal History: Reports: GERD, Other (See Below) Other Gastrointestinal History: Stomach ulcer Genitourinary History: Reports: Renal Calculus Musculoskeletal History: Reports: Arthritis Other Musculoskeletal History: fx hand Neurological History: Reports: Headaches, Chronic, Other (See Below) Other Neuro History: pseudotumor cerebrii Psychiatric History: Reports: Anxiety, Depression Endocrine/Metabolic History: Reports: Obesity/BMI 30+ Hematologic History: Reports: Anticoagulation Therapy (d/t heart stents) Immunologic History: Reports: None Oncologic (Cancer) History: Reports: None Dermatologic History: Reports: None - Infectious Disease History Infectious Disease History: Reports: Chicken Pox - Past Surgical History Head Surgeries/Procedures: Reports: None HEENT Surgical History: Reports: Naso-Sinus Surgery Other Cardiovascular Surgeries/Procedures: coronary stent placement x 4 2014 Oncologic Surgical History: Reports: None Dermatological Surgical History: Reports: None - SUBSTANCE USE Smoking Status *Q: Current Every Day Smoker Tobacco Use Within Last Twelve Months: Cigarettes Second Hand Smoke Exposure: Yes Recreational Drug Use History: No - HOME MEDS Home Medications: Home Meds Aspirin 81 mg PO DAILY 03/21/18 [History] Clopidogrel [Plavix] 75 mg PO DAILY 03/21/18 [History] FLUoxetine HCl [Fluoxetine HCl] 40 mg PO QAM 03/21/18 [History] Losartan [Cozaar] 50 mg PO QAM 03/21/18 [History] Topiramate [Topiramate ER] 50 mg PO BID 03/21/18 [History] lamoTRIgine 200 mg PO BEDTIME 03/21/18 [History] Amitriptyline [Elavil] 20 mg PO BEDTIME 07/14/18 [History] Diclofenac Sodium [Voltaren] 75 mg PO BID 07/14/18 [History] Nitroglycerin 0.4 mg SL ASDIRECTED PRN 07/14/18 [History] Carisoprodol 1 tab PO TID PRN 12/06/18 [History] Pantoprazole Sodium [Protonix] 1 tab PO DAILY 12/06/18 [History] Rosuvastatin Calcium 1 tab PO DAILY 12/06/18 [History] - CURRENT (IN HOUSE) MEDS Current Meds: Current Medications Hydromorphone HCl (Dilaudid) 0.5 mg IVPUSH Q1H PRN PRN Reason: Pain (severe 7-10) Lactated Ringer's (Ringers, Lactated) 1,000 mls @ 125 mls/hr IV ASDIRECTED [facility] Last Admin: 12/07/18 00:40 Dose: 125 mls/hr Piperacillin Sod/Tazobactam (Sod 3.375 gm/ Sodium Chloride) 50 mls @ 100 mls/ hr IV Q8H [facility] Last Admin: 12/07/18 00:41 Dose: 100 mls/hr Losartan Potassium (Cozaar) 50 mg PO DAILY [facility] Ondansetron HCl (Zofran) 4 mg IVPUSH Q6H PRN PRN Reason: Nausea/Vomiting Oxycodone/Acetaminophen (Percocet 325-5 Mg) 2 tab PO Q4H PRN PRN Reason: Pain (moderate 4-6) Sodium Chloride (Saline Flush) 10 ml FLUSH ASDIRECTED PRN PRN Reason: Keep Vein Open Sodium Chloride (Saline Flush) 2.5 ml FLUSH ASDIRECTED PRN PRN Reason: Keep Vein Open Discontinued Medications Hydromorphone HCl (Dilaudid) 0.5 mg IVPUSH Q1H PRN PRN Reason: Pain (severe 7-10) Last Admin: 12/07/18 06:37 Dose: 0.5 mg Hydromorphone HCl (Dilaudid) Confirm Administered Dose 1 mg .ROUTE .STK-MED ONE Stop: 12/07/18 06:23 Last Admin: 12/07/18 06:40 Dose: Not Given Iopamidol (Isovue-370 (76%)) 100 ml IVPUSH ONETIME ONE Stop: 12/06/18 22:33 Last Admin: 12/06/18 22:32 Dose: 100 ml Ketorolac Tromethamine (Toradol) 30 mg IVPUSH ONETIME ONE Stop: 12/06/18 21:17 Last Admin: 12/06/18 21:25 Dose: 30 mg Morphine Sulfate (Morphine) 4 mg IVPUSH ONETIME ONE Stop: 12/06/18 21:36 Last Admin: 12/06/18 22:30 Dose: 4 mg
[2018-12-07] MEDS ORDERED: Lidocaine 1% with EPINEPHrine 1:100,000 20 ML MDV ONE (11:14)
[2018-12-07] MEDS ORDERED: Bupivacaine 0.5% 30 ML SDV ONE (11:33)
--- NOTE | 2018-12-07 12:40 | PCM.OPNOTE ---
- General Post-Op/Procedure Note Date of Surgery/Procedure: 12/07/18 Operative Procedure(s): Incision and drainage debra-anal abscess Findings: Incision and drainage of 3 x 1 x 3 cm posterior midline perianal abscess Pre Op Diagnosis: Perianal abscess Post-Op Diagnosis: same Anesthesia Technique: General LMA Primary Surgeon: Judith Domínguez EBL in mLs: 5 Condition: Fair
[2018-12-07] MEDS ORDERED: Ondansetron 4 MG/2 ML SDV ONE (12:46)
[2018-12-07] MEDS ORDERED: fentaNYL 250 MCG/5 ML SDV ONE (12:46)
[2018-12-07] MEDS ORDERED: Metoclopramide 10 MG/2 ML SDV ONE (12:46)
[2018-12-07] MEDS ORDERED: diphenhydrAMINE 50 MG/ML SDV ONE (12:46)
[2018-12-07] MEDS ORDERED: Propofol 200 MG/20 ML SDV ONE (12:46)
[2018-12-07] MEDS ORDERED: Dexamethasone 4 MG/ML 5 ML MDV ONE (12:46)
[2018-12-07] MEDS ORDERED: Midazolam 1 MG/ML 2 ML SDV ONE ×2 (12:46)
[2018-12-07] MEDS ORDERED: Ketorolac 30 MG/ML SDV ONE (12:46)
--- NOTE | 2018-12-07 13:30 | OR ---
SURGEON: JUANCHO ABREU MD DATE OF PROCEDURE: 12/07/2018 PREOPERATIVE DIAGNOSIS: Perianal abscess. POSTOPERATIVE DIAGNOSIS: Perianal abscess. PROCEDURE PERFORMED: Incision and drainage of perianal abscess. ANESTHESIA: General LMA. FLUIDS: See anesthesia record. ESTIMATED BLOOD LOSS: 5 mL. FINDINGS: 3 x 1 x 3 cm posterior midline perianal abscess with no evidence of fistula. COMPLICATIONS: None. INDICATIONS: The patient is a 53-year-old male who presented with severe perianal pain. His white blood cell count was elevated, and a CT of the pelvis showed a 2.5 cm perianal abscess along the posterior midline. The patient and I discussed the Pathophysiology of perianal abscesses. I explained that the treatment for this is incision and drainage. The patient and I discussed the expected perioperative course as well as risks including bleeding, infection, or damage to surrounding structures, which may result in alteration of continence. The patient verbalized understanding and wishes to proceed. PROCEDURE IN DETAIL: The patient was brought into the OR and placed on the OR table in supine position. A time-out was completed verifying the patient's name, age, date of , allergies, and procedure to be performed. General LMA anesthesia was induced. Once the LMA was in place and secured, the patient was then placed in a right lateral decubitus position. Before the patient was prepped, I palpated along his posterior midline, I could feel a firm indurated area. The buttocks were prepped and draped in usual standard fashion. A digital rectal exam was performed. There was fullness along the posterior midline that was palpable through the anal canal. Again, there was an area of induration and fullness along the posterior midline. Using a 25-gauge hypodermic needle, I aspirated along the posterior midline and encountered an abscess cavity. [place] brownish fluid was aspirated. This was sent for anaerobic and aerobic cultures as well as Gram stain. I anesthetized the area along the posterior midline with 0.5% Marcaine plain. An 11 blade was then used to make a small cruciate incision over the area of maximal fullness. I immediately encountered a large amount of purulent material. This was suctioned out. I then used a hemostat to explore the abscess cavity and break up any loculations. The abscess cavity did track along the posterior midline to the anal canal. Using a fistula probe, I explored the wound cavity looking for connection to the anal canal. None was noted. A bivalve proctoscope was placed in the anus. I inspected the anal mucosa, it appeared healthy and normal. I instilled hydrogen peroxide in the abscess cavity and none was noted to be coming through into the anal canal. It was felt that this was simply a perianal abscess. The wound was then packed with 1 inch ribbon gauze, soaked in normal saline. The area was then covered with 4 x 4, fluffs, and secured in place using mesh underwear. The drapes were taken down, and the patient was placed back into supine position. He was extubated and was taken to PACU in stable condition. All counts were complete and correct at the end of the case. JENNIFER PYLE /[id number]
[2018-12-07] MEDS: Pantoprazole 40 MG Tab.CR PO SCH (14:50)
[2018-12-07] MEDS: Losartan 50 MG Tab PO SCH (14:50)
[2018-12-07] MEDS: Topiramate 50 MG Tab PO SCH (14:51)
[2018-12-07] MEDS: Rosuvastatin 10 MG Tab PO SCH (14:52)
[2018-12-07] MEDS: Nicotine 14 MG/24 Hr Patch TRDERM SCH (20:05)
[2018-12-07] MEDS ORDERED: Amitriptyline 25 MG Tab PO SCH (21:00)
[2018-12-07] MEDS ORDERED: lamoTRIgine 100 MG Tab PO SCH (21:00)
[2018-12-08] MEDS: Topiramate 50 MG Tab PO SCH ×2 (01:18→09:59)
[2018-12-08] MEDS: Pantoprazole 40 MG Tab.CR PO SCH (06:45)
--- NOTE | 2018-12-08 07:57 | PCM48HPAN ---
Post Anesthesia Note - EVALUATION WITHIN 48HRS OF ANESTHETIC Vital Signs in Normal Range: Yes Patient Participated in Evaluation: Yes Respiratory Function Stable: Yes Airway Patent: Yes Cardiovascular Function Stable: Yes Hydration Status Stable: Yes Pain Control Satisfactory: Yes Nausea and Vomiting Control Satisfactory: Yes Mental Status Recovered: Yes Resp Rate: 18 Blood Pressure: 122/77 - COMMENTS/OBSERVATIONS Free Text/Narrative:: Pt states good pain control last night and no nausea. Pt states he is having some discomfort this AM from the packing, but anticipates having that removed later today. No apparent anesthesia complications.
[2018-12-08] MEDS ORDERED: FLUoxetine 20 MG Cap PO SCH (09:00)
--- NOTE | 2018-12-08 09:39 | PCM.DCSUM1 ---
Discharge Summary - Hospital Course Free Text/Narrative:: Patient is a 53-year-old male who presented with perianal pain. On physical exam he is a firm indurated area along the posterior midline of his anoderm. CT scan of the abdomen pelvis showed a 2.4 cm posterior perianal abscess. His white blood count was 17,000. He was admitted the hospital. I took him for an exam under anesthesia and incision and drainage of perianal abscess. He developed postoperative period and was much more comfortable. His vital signs are stable. I removed the dressings this morning and his wound appears less erythematous and indurated. Drainage is serosanguineous. His pain is well- controlled and he is tolerating a diet. He can be discharged home. - Discharge Data Discharge Date: 12/08/18 Discharge Disposition: Home, Self-Care 01 Condition: Fair - Discharge Diagnosis/Problem(s) (1) Perianal abscess SNOMED Code(s): 93660723 ICD Code: K61.0 - ANAL ABSCESS Status: Acute Current Visit: Yes - Patient Summary/Data Operative Procedure(s) Performed: Incision and drainage debra-anal abscess - Patient Instructions Diet: Regular Diet as Tolerated Activity: Rest and Relax Today Driving: Do Not Drive Showering/Bathing: May Shower Showering/Bathing, Other: Take a sitz bath at least once per day and/or after BM. Wound/Incision Care: Keep Operative Site/Wound Site Clean and Dry Notify Provider of: Fever, Increased Pain, Swelling and Redness, Drainage, Nausea and/or Vomiting Other/Special Instructions: -Eat a diet high in fiber to promote good bowel habits. -While taking narcotic medications no driving. -While taking narcotic medications, take something to keep you from getting constipated. You can use OTC laxitives or Miralax. - Discharge Plan *PRESCRIPTION DRUG MONITORING PROGRAM REVIEWED*: Yes *COPY OF PRESCRIPTION DRUG MONITORING REPORT IN PATIENT CELY: Yes Home Medications: Home Meds Aspirin 81 mg PO DAILY 03/21/18 [History] Clopidogrel [Plavix] 75 mg PO DAILY 03/21/18 [History] FLUoxetine HCl [Fluoxetine HCl] 40 mg PO QAM 03/21/18 [History] Losartan [Cozaar] 25 mg PO QAM 03/21/18 [History] Topiramate [Topiramate ER] 50 mg PO BID 03/21/18 [History] lamoTRIgine 200 mg PO BEDTIME 03/21/18 [History] Amitriptyline [Elavil] 20 mg PO BEDTIME 07/14/18 [History] Diclofenac Sodium [Voltaren] 75 mg PO BID 07/14/18 [History] Nitroglycerin 0.4 mg SL ASDIRECTED PRN 07/14/18 [History] Carisoprodol 1 tab PO TID PRN 12/06/18 [History] Pantoprazole Sodium [Protonix] 20 mg PO ACBREAKFAST 12/06/18 [History] Rosuvastatin Calcium 1 tab PO DAILY 12/06/18 [History] Patient Handouts: Perianal Abscess, Incision and Drainage, Care After - Discharge Summary/Plan Comment DC Time >30 min.: No - General Info Date of Service: 12/08/18 Functional Status: Reports: Pain Controlled, Tolerating Diet, Ambulating, Urinating - Review of Systems General: Reports: No Symptoms HEENT: Reports: No Symptoms Pulmonary: Reports: No Symptoms Cardiovascular: Reports: No Symptoms Gastrointestinal: Reports: No Symptoms Genitourinary: Reports: No Symptoms Neurological: Reports: No Symptoms - Patient Data Vitals - Most Recent: Last Vital Signs Temp 36.2 C 12/08/18 07:44 Pulse 96 12/08/18 07:44 Resp 18 12/08/18 07:56 BP 122/77 12/08/18 07:56 Pulse Ox 96 12/08/18 07:44 Weight - Most Recent: 118.614 kg I&O - Last 24 hours: Intake & Output 12/07/18 12/08/18 12/08/18 22:59 06:59 14:59 Intake Total 1000 400 Balance 1000 400 KODY Results - Last 24 hrs: Microbiology 12/07/18 12:20 Gram Stain - Preliminary Other - Anus Med Orders - Current: Current Medications Amitriptyline HCl (Elavil) 25 mg PO BEDTIME [facility] Last Admin: 12/07/18 20:04 Dose: 25 mg Fluoxetine HCl (Prozac) 40 mg PO QAM LIZ Lamotrigine (Lamotrigine) 200 mg PO BEDTIME [facility] Last Admin: 12/07/18 20:25 Dose: 200 mg Losartan Potassium (Cozaar) 50 mg PO DAILY [facility] Last Admin: 12/07/18 14:50 Dose: 50 mg Morphine Sulfate (Morphine Sulfate) 4 mg IV Q2H PRN PRN Reason: Pain Last Admin: 12/07/18 11:31 Dose: 4 mg Nicotine (Habitrol) 14 mg TRDERM DAILY [facility] Last Admin: 12/07/18 20:05 Dose: 14 mg Ondansetron HCl (Zofran) 4 mg IVPUSH Q6H PRN PRN Reason: Nausea/Vomiting Oxycodone/Acetaminophen (Percocet 325-5 Mg) 2 tab PO Q4H PRN PRN Reason: Pain (moderate 4-6) Last Admin: 12/08/18 06:50 Dose: 2 tab Pantoprazole Sodium (Protonix) 40 mg PO ACBREAKFAST [facility] Last Admin: 12/08/18 06:45 Dose: 40 mg Rosuvastatin Calcium (Crestor) 20 mg PO DAILY [facility] Last Admin: 12/07/18 14:52 Dose: 20 mg Sodium Chloride (Saline Flush) 10 ml FLUSH ASDIRECTED PRN PRN Reason: Keep Vein Open Sodium Chloride (Saline Flush) 2.5 ml FLUSH ASDIRECTED PRN PRN Reason: Keep Vein Open Topiramate (Topamax) 50 mg PO BID [facility] Last Admin: 12/08/18 01:18 Dose: Not Given Discontinued Medications Bupivacaine HCl (Marcaine 0.5%) Confirm Administered Dose 30 ml .ROUTE .STK-MED ONE Stop: 12/07/18 11:34 Dexamethasone (Dexamethasone) Confirm Administered Dose 20 mg .ROUTE .STK-MED ONE Stop: 12/07/18 12:47 Diphenhydramine HCl (Benadryl) Confirm Administered Dose 50 mg .ROUTE .STK-MED ONE Stop: 12/07/18 12:47 Fentanyl (Sublimaze) Confirm Administered Dose 250 mcg .ROUTE .STK-MED ONE Stop: 12/07/18 12:47 Hydromorphone HCl (Dilaudid) 0.5 mg IVPUSH Q1H PRN PRN Reason: Pain (severe 7-10) Last Admin: 12/07/18 06:37 Dose: 0.5 mg Hydromorphone HCl (Dilaudid) Confirm Administered Dose 1 mg .ROUTE .STK-MED ONE Stop: 12/07/18 06:23 Last Admin: 12/07/18 06:40 Dose: Not Given Hydromorphone HCl (Dilaudid) 0.5 mg IVPUSH Q1H PRN PRN Reason: Pain (severe 7-10) Lactated Ringer's (Ringers, Lactated) 1,000 mls @ 125 mls/hr IV ASDIRECTED [facility] Last Admin: 12/07/18 08:52 Dose: 125 mls/hr Piperacillin Sod/Tazobactam (Sod 3.375 gm/ Sodium Chloride) 50 mls @ 100 mls/ hr IV Q8H [facility] Last Admin: 12/07/18 00:41 Dose: 100 mls/hr Piperacillin Sod/Tazobactam (Sod 3.375 gm/ Sodium Chloride) 50 mls @ 100 mls/ hr IV Q6H [facility] Last Admin: 12/07/18 08:11 Dose: 100 mls/hr Lidocaine HCl (Xylocaine-Mpf 1%) Confirm Administered Dose 5 mls @ as directed .ROUTE .STK-MED ONE Stop: 12/07/18 12:47 Iopamidol (Isovue-370 (76%)) 100 ml IVPUSH ONETIME ONE Stop: 12/06/18 22:33 Last Admin: 12/06/18 22:32 Dose: 100 ml Ketorolac Tromethamine (Toradol) 30 mg IVPUSH ONETIME ONE Stop: 12/06/18 21:17 Last Admin: 12/06/18 21:25 Dose: 30 mg Ketorolac Tromethamine (Toradol) Confirm Administered Dose 30 mg .ROUTE .STK- MED ONE Stop: 12/07/18 12:47 Lidocaine/Epinephrine (Xylocaine 1% With Epinephrine 1:100,000) Confirm Administered Dose 20 ml .ROUTE .STK-MED ONE Stop: 12/07/18 11:15 Metoclopramide HCl (Reglan) Confirm Administered Dose 10 mg .ROUTE .STK-MED ONE Stop: 12/07/18 12:47 Midazolam HCl (Versed 1 Mg/Ml) Confirm Administered Dose 2 mg .ROUTE .STK-MED ONE Stop: 12/07/18 12:47 Midazolam HCl (Versed 1 Mg/Ml) Confirm Administered Dose 2 mg .ROUTE .STK-MED ONE Stop: 12/07/18 12:47 Morphine Sulfate (Morphine) 4 mg IVPUSH ONETIME ONE Stop: 12/06/18 21:36 Last Admin: 12/06/18 22:30 Dose: 4 mg Ondansetron HCl (Zofran) Confirm Administered Dose 8 mg .ROUTE .STK-MED ONE Stop: 12/07/18 12:47 Propofol (Diprivan 20 Ml) Confirm Administered Dose 200 mg .ROUTE .STK-MED ONE Stop: 12/07/18 12:47 - Exam General: Reports: Alert, Oriented, Cooperative HEENT: Reports: Pupils Equal, Pupils Reactive Lungs: Reports: Normal Respiratory Effort Cardiovascular: Reports: Regular Rate GI/Abdominal Exam: Soft, Non-Tender, No Distention, No Mass Rectal (Males) Exam: Other (Operative wound appears to be open healthy and clean appearing. No erythema and induration improved. )
[2018-12-08] MEDS: Losartan 50 MG Tab PO SCH (09:59)
[2018-12-08] MEDS: Rosuvastatin 10 MG Tab PO SCH (10:01)
[2018-12-08] MEDS: Nicotine 14 MG/24 Hr Patch TRDERM SCH (10:01)
[2018-12-08 10:02] VITALS: BP 110/69
== END 2018-12-08 11:00 | disposition home or self-care (01) ==
LOC: MW.ED 20:10 → MW.MS 12-07 00:01
PROVIDERS: ADMIT Surgery; ATTEND Surgery
DX: K61.0 Anal abscess (principal); I10 Essential (primary) hypertension; E78.00 Pure hypercholesterolemia, unspecified; K21.9 Gastro-esophageal reflux disease without esophagitis; F17.200 Nicotine dependence, unspecified, uncomplicated; Z95.5 Presence of coronary angioplasty implant and graft; Z79.82 Long term (current) use of aspirin; Z79.899 Other long term (current) drug therapy
CPT/HCPCS: 36415; 46050; 72193; 80053; 81003; 85025; 87070; 87075; 87077; 87186; 87205; 96361; 96365; 96366; 96375; 96376; 99285; A9270; G0378; J1100; J1170; J1200; J1885; J2001; J2250; J2270; J2405; J2543; J2704; J2765; J3010; J3490; J7050; J7120; Q9967

== ENCOUNTER 2019-03-16 09:48 | Emergency (ER) | payer MEDICAID ==
[2019-03-16] MEDS ORDERED: Ketorolac 30 MG/ML SDV IVPUSH ONE (10:11)
[2019-03-16] MEDS ORDERED: Sodium Chloride 0.9% 1,000 ML IV ONE (10:11)
[2019-03-16] MEDS ORDERED: Ondansetron 4 MG/2 ML SDV IVPUSH ONE (10:11)
--- NOTE | 2019-03-16 10:23 | EDM.PDOC ---
ED HPI GENERAL MEDICAL PROBLEM - General Chief Complaint: Abdominal Pain Stated Complaint: ABDOMINAL PAIN Time Seen by Provider: 03/16/19 10:07 Source of Information: Reports: Patient History Limitations: Reports: No Limitations - History of Present Illness INITIAL COMMENTS - FREE TEXT/NARRATIVE: HISTORY AND PHYSICAL: History of present illness: Patient is a 54-year-old male who presents to the emergency room today with complaints of right lower abdominal pain that radiates into his groin and testes which started this morning. Patient states that he has had kidney stones in the past and feels that the pain is very similar. States he has had some nausea and dysuria which started about 30 minutes prior to arrival. Patient denies any fever, chills, headache, change in vision, syncope or near syncope. Denies any chest pain, back pain, shortness of breath or cough. Denies any vomiting, diarrhea, or constipation. Has not noted any blood in urine or stool. Patient has been eating and drinking appropriately. Review of systems: As per history of present illness and below otherwise all systems reviewed and negative. Past medical history: As per history of present illness and as reviewed below otherwise noncontributory. Surgical history: As per history of present illness and as reviewed below otherwise noncontributory. Social history: See social history for further information Family history: As per history of present illness and as reviewed below otherwise noncontributory. Physical exam: General: Well-developed and well-nourished 54-year-old male. Alert and oriented. Nontoxic appearing and in no acute distress. HEENT: Atraumatic, normocephalic, pupils equal and reactive bilaterally, negative for conjunctival pallor or scleral icterus, mucous membranes moist, trachea midline. No drooling or trismus noted. No meningeal signs. No hot potato voice noted. Lungs: Clear to auscultation, breath sounds equal bilaterally, chest nontender. Heart: S1S2, regular rate and rhythm without overt murmur Abdomen: Soft, obese, mild right lower quadrant tenderness, no rebound tenderness. Negative for masses or hepatosplenomegaly. Negative for costovertebral tenderness. Pelvis: Stable nontender. Genitourinary: This was done with consent parking regulation enforcement officer at the bedside. + Cremasteric reflux. Testicles are nontender with palpation, no erythema or soft tissue swelling. No hernias noted bilaterally. Rectal: Deferred. Skin: Intact, warm, dry. No lesions or rashes noted. Extremities: Atraumatic, moves all extremities per self without difficulty or deficits, negative for cords or calf pain. Neurovascular unremarkable. Neuro: Awake, alert, oriented. Cranial nerves II through XII unremarkable. Cerebellum unremarkable. Motor and sensory unremarkable throughout. Exam nonfocal. Notes: During my physical evaluation he has more pain to the right low abdomen. Describes the "pain" of the testicles as a dull ache. He has no pain with palpation or any significant findings on my evaluation. I will move forward with doing a CT and lab work. Patient is agreeable to plan of care. CT shows mild right hydronephrosis and hydroureter produced by a 6 x 5 millimeter right distal ureteral calculus. No other right-sided renal or ureteral calculi. CT of the abdomen shows multiple nonobstructive small calculi in the left kidney, the largest measuring [address] Roque was consulted on this patient. He would like to see the patient in his office this afternoon. I did offer to provide prescriptions, Dr. Roque, states he will provide these after his evaluation. This information was shared with the patient. Supportive care measures were reviewed and discussed. Voices understanding and is agreeable to plan of care. Denies any further questions or concerns at this time. Diagnostics: CBC, CMP, UA, CT abdomen and pelvis Therapeutics: IV fluid, Zofran, Toradol, Flomax Prescription: None Impression: Kidney Stone, Right Plan: 1. Dr. Roque, Urologist, would like to see you in his office now. After discharge please go directly to his office for immediate follow-up. 2. Return to the ED as needed and as discussed. Definitive disposition and diagnosis as appropriate pending reevaluation and review of above. Onset: Today Right Testicle Pain Score (Numeric/FACES): 2 - Related Data Allergies Allergy/AdvReac Type Severity Reaction Status Date / Time No Known Allergies Allergy Verified 03/16/19 09:57 Home Meds: Home Meds Aspirin 81 mg PO DAILY 03/21/18 [History] Clopidogrel [Plavix] 75 mg PO DAILY 03/21/18 [History] FLUoxetine HCl [Fluoxetine HCl] 40 mg PO QAM 03/21/18 [History] Losartan [Cozaar] 25 mg PO QAM 03/21/18 [History] Topiramate [Topiramate ER] 50 mg PO BID 03/21/18 [History] lamoTRIgine 200 mg PO BEDTIME 03/21/18 [History] Amitriptyline [Elavil] 20 mg PO BEDTIME 07/14/18 [History] Nitroglycerin 0.4 mg SL ASDIRECTED PRN 07/14/18 [History] Carisoprodol 1 tab PO TID PRN 12/06/18 [History] Pantoprazole Sodium [Protonix] 20 mg PO ACBREAKFAST 12/06/18 [History] Rosuvastatin Calcium 1 tab PO DAILY 12/06/18 [History] Past Medical History HEENT History: Reports: None Other HEENT History: Wears reading glasses. Cardiovascular History: Reports: High Cholesterol, Hypertension, Stents Other Cardiovascular History: "Some kind of heart problem I'm being worked up for". Quad stents placed last thursday in [place]. Respiratory History: Reports: None Gastrointestinal History: Reports: GERD Other Gastrointestinal History: Stomach ulcer Genitourinary History: Reports: Renal Calculus Musculoskeletal History: Reports: Arthritis Other Musculoskeletal History: fx hand Neurological History: Reports: Other (See Below) Other Neuro History: pseudotumor cerebrii Psychiatric History: Reports: Anxiety, Depression Endocrine/Metabolic History: Reports: Obesity/BMI 30+ Hematologic History: Reports: Anticoagulation Therapy Immunologic History: Reports: None Oncologic (Cancer) History: Reports: None Dermatologic History: Reports: None - Infectious Disease History Infectious Disease History: Reports: Chicken Pox - Past Surgical History Head Surgeries/Procedures: Reports: None HEENT Surgical History: Reports: Naso-Sinus Surgery Other Cardiovascular Surgeries/Procedures: coronary stent placement Oncologic Surgical History: Reports: None Dermatological Surgical History: Reports: None Social & Family History - Family History Family Medical History: Noncontributory Cardiac: Reports: [place] - Tobacco Use Smoking Status *Q: Current Every Day Smoker Years of Tobacco use: 30 Packs/Tins Daily: 1 - Caffeine Use Caffeine Use: Reports: Coffee, Energy Drinks - Recreational Drug Use Recreational Drug Use: No - Living Situation & Occupation Living situation: Reports: with Significant Other, Other (living in camper) Occupation: Unemployed ED ROS GENERAL - Review of Systems Review Of Systems: ROS reveals no pertinent complaints other than HPI. ED EXAM, GI/ABD - Physical Exam Exam: See Below (See dictation) Course - Vital Signs Last Recorded V/S: Last Vital Signs Temp 97.2 F 03/16/19 09:54 Pulse 84 03/16/19 09:54 Resp 18 03/16/19 09:54 BP 140/94 H 03/16/19 09:54 Pulse Ox 96 03/16/19 09:54 - Orders/Labs/Meds Labs: Laboratory Tests 03/16/19 03/16/19 03/16/19 Range/Units 10:03 10:30 10:30 WBC 7.67 (4.0-11.0) K/uL RBC 4.98 (4.50-5.90) M/uL Hgb 15.2 (13.0-17.0) g/dL Hct 44.2 (38.0-50.0) % MCV 88.8 (80.0-98.0) fL MCH 30.5 (27.0-32.0) pg MCHC 34.4 (31.0-37.0) g/dL RDW Std Deviation 42.6 (28.0-62.0) fl RDW Coeff of Maribel 13 (11.0-15.0) % Plt Count 252 (150-400) K/uL MPV 9.30 (7.40-12.00) fL Neut % (Auto) 69.9 (48.0-80.0) % Lymph % (Auto) 20.9 (16.0-40.0) % Hayes % (Auto) 6.9 (0.0-15.0) % Eos % (Auto) 1.8 (0.0-7.0) % Baso % (Auto) 0.5 (0.0-1.5) % Neut # (Auto) 5.4 (1.4-5.7) K/uL Lymph # (Auto) 1.6 (0.6-2.4) K/uL Hayes # (Auto) 0.5 (0.0-0.8) K/uL Eos # (Auto) 0.1 (0.0-0.7) K/uL Baso # (Auto) 0.0 (0.0-0.1) K/uL Nucleated RBC % 0.0 /100WBC Nucleated RBCs # 0 K/uL Sodium 139 (136-148) mmol/L Potassium 3.9 (3.5-5.1) mmol/L Chloride 104 (98-107) mmol/L Carbon Dioxide 24.0 (21.0-32.0) mmol/L BUN 15 (7.0-18.0) mg/dL Creatinine 1.2 (0.8-1.3) mg/dL Est Cr Clr Drug Dosing 79.04 mL/min Estimated GFR (MDRD) > 60.0 ml/min Glucose 106 (74-106) mg/dL Calcium 9.4 (8.5-10.1) mg/dL Total Bilirubin 0.3 (0.2-1.0) mg/dL AST 17 (15-37) IU/L ALT 27 (14-63) IU/L Alkaline Phosphatase 102 (46-116) U/L Total Protein 7.7 (6.4-8.2) g/dL Albumin 4.1 (3.4-5.0) g/dL Globulin 3.6 (2.6-4.0) g/dL Albumin/Globulin Ratio 1.1 (0.9-1.6) Urine Color DARK YELLOW Urine Appearance SLT CLOUDY Urine pH 5.0 (5.0-8.0) Ur Specific [place] >= 1.030 (1.001-1.035) Urine Protein TRACE H (NEGATIVE) mg/dL Urine Glucose (UA) NEGATIVE (NEGATIVE) mg/dL Urine Ketones NEGATIVE (NEGATIVE) mg/dL Urine Occult Blood LARGE H (NEGATIVE) Urine Nitrite NEGATIVE (NEGATIVE) Urine Bilirubin SMALL H (NEGATIVE) Urine Ictotest NEGATIVE Urine Urobilinogen 0.2 (<2.0) EU/dL Ur Leukocyte Esterase NEGATIVE (NEGATIVE) Urine RBC 20-30 (0-2/HPF) Urine WBC 3-5 (0-5/HPF) Ur Epithelial Cells FEW (NONE-FEW) Urine Bacteria FEW (NEGATIVE) Urine Mucus MODERATE (NONE-MOD) Urine Sperm FEW (NEGATIVE) Meds: Medications Discontinued Medications Generic Name Dose Route Start Last Admin Trade Name Freq PRN Reason Stop Dose Admin Sodium Chloride 1,000 mls @ 999 mls/hr 03/16/19 10:11 03/16/19 10:31 Normal Saline IV 03/16/19 11:11 999 mls/hr STAT ONE Administration Iopamidol 100 ml 03/16/19 11:31 03/16/19 11:36 Isovue Multipack-370 (76%) IVPUSH 03/16/19 11:32 100 ml ONETIME STA Administration Ketorolac Tromethamine 30 mg 03/16/19 10:11 03/16/19 10:31 Toradol IVPUSH 03/16/19 10:12 30 mg ONETIME ONE Administration Ondansetron HCl 4 mg 03/16/19 10:11 03/16/19 10:31 Zofran IVPUSH 03/16/19 10:12 4 mg ONETIME ONE Administration Departure - Departure Time of Disposition: 12:38 Disposition: Home, Self-Care 01 Clinical Impression: Kidney stone on right side - Discharge Information Instructions: Kidney Stones, [id number] Referrals: Izabel Cabrera MD [Primary Care Provider] - Forms: ED Department Discharge Additional Instructions: The following information is given to patients seen in the emergency department who are being discharged to home. This information is to outline your options for follow-up care. We provide all patients seen in our emergency department with a follow-up referral. The need for follow-up, as well as the timing and circumstances, are variable depending upon the specifics of your emergency department visit. If you don't have a primary care physician on staff, we will provide you with a referral. We always advise you to contact your personal physician following an emergency department visit to inform them of the circumstance of the visit and for follow-up with them and/or the need for any referrals to a consulting specialist. The emergency department will also refer you to a specialist when appropriate. This referral assures that you have the opportunity for follow-up care with a specialist. All of these measure are taken in an effort to provide you with optimal care, which includes your follow-up. Under all circumstances we always encourage you to contact your private physician who remains a resource for coordinating your care. When calling for follow-up care, please make the office aware that this follow-up is from your recent emergency room visit. If for any reason you are refused follow-up, please contact the [facility] Emergency Department at and asked to speak to the emergency department charge nurse. [facility] Specialty Care - Urology [address] [place] [id number] Roque, Urologist, would like to see you in his office now. After discharge please go directly to his office for immediate follow-up. 2. Return to the ED as needed and as discussed.
[2019-03-16 11:06] LABS: CHLORIDE,CL 104 mmol/L (98-107); SODIUM,NA 139 mmol/L (136-148)
[2019-03-16] MEDS ORDERED: Iopamidol 755 MG/ML 500 ML Multipack Bottle IVPUSH STA (11:31)
--- NOTE | 2019-03-16 12:24 | CT ---
INDICATION: Right lower quadrant pain for the past few weeks. Right groin and testicular pain for the past 30 minutes with nausea. Dysuria after intercourse this a.m.. COMPARISON: CT of the pelvis from 12/06/2018 TECHNIQUE: CT examination of the abdomen and pelvis was performed with the uneventful intravenous administration of 100 cc of Omnipaque 350 while 3 mm thick axial sections were obtained from the lung bases through the pubic symphysis. Oral contrast was not administered. Please note that all CT scans at this facility use dose modulation, iterative reconstruction, and/or weight-based dosing when appropriate to reduce radiation dose to as low as reasonably achievable. FINDINGS: There is mild right hydronephrosis and mild right hydroureter produced by a 6 x 5 millimeter right distal ureteral calculus located approximately 2 centimeters from the UVJ. This calculus appears to have been present on the previous study, but did not result in obstruction. Incidental note is made of a moderate extrarenal pelvis on the right. There is no sign of any additional right-sided renal calculi. A few small cysts are seen in the right kidney, the largest arising from the lowest select lowest lower pole measuring 8 millimeters in diameter. In the abdomen, the liver has mild patchy hypodensity consistent with scattered fatty infiltration. There is no sign of any mass. The spleen, pancreas, and adrenals are normal in appearance. There are multiple small nonobstructive calculi scattered throughout the left kidney. The largest is in the lower pole measuring 6 by 3 millimeters. A simple cyst measuring 1.7 centimeters arises from the lower pole of the left kidney. There is no sign of left hydronephrosis or hydroureter. There is no sign of left ureteral calculus. The gallbladder is normal in appearance. The abdominal aorta is normal in caliber with no sign of dilatation. There is no sign of retroperitoneal mass or adenopathy. The stomach, loops of small bowel, and colon in the abdomen are normal in appearance. In the pelvis, the appendix is normal in appearance with no sign of inflammatory process. The loops of small bowel and colon in the pelvis are normal in appearance. The rectum is normal in appearance. The previously seen fluid collection located posterior to the anal canal has completely resolved, consistent with resolution of a perianal abscess. The prostate is normal in appearance. The seminal vesicles are normal in appearance. The urinary bladder is normal in appearance. There is no sign of pelvic or inguinal mass or adenopathy. The scrotum and penis are included on today`s study. There is no sign of scrotal mass, hydrocele, or calcification. There is no sign of inguinal hernia or fluid in the inguinal canal. The penis itself is normal in appearance. There is minimal patchy density in the posterior lung bases bilaterally, consistent with minimal dependent atelectasis. There is mild L5-S1 disc degenerative disease. No additional osseous abnormalities are seen. IMPRESSION: Mild right hydronephrosis and hydroureter produced by a 6 x 5 millimeter right distal ureteral calculus. No other right-sided renal or ureteral calculi. CT of the abdomen shows multiple nonobstructive small calculi in the left kidney, the largest measuring 6 x 3 millimeters. Simple cysts seen in both kidneys. Normal CT of the pelvis with contrast. Resolution of the previously seen perianal abscess. Normal appearance of the scrotal, inguinal, and penile structures. Please note that all CT scans at this facility use dose modulation, iterative reconstruction, and/or weight-based dosing when appropriate to reduce radiation dose to as low as reasonably achievable. Dictated by Jairo Hudson MD @ Mar 16 2019 12:07PM Signed by Dr. Jairo Hudson @ Mar 16 2019 12:22PM
[2019-03-16] MEDS ORDERED: Tamsulosin 0.4 MG Cap.ER PO ONE (12:39)
[2019-03-16 12:53] VITALS: BP 120/61
== END 2019-03-16 12:51 | disposition home or self-care (01) ==
LOC: MW.ED 09:48
DX: N13.2 Hydronephrosis with renal and ureteral calculous obstruction (principal); E78.00 Pure hypercholesterolemia, unspecified; I10 Essential (primary) hypertension; K21.9 Gastro-esophageal reflux disease without esophagitis; F17.210 Nicotine dependence, cigarettes, uncomplicated; Z79.899 Other long term (current) drug therapy; Z95.5 Presence of coronary angioplasty implant and graft
CPT/HCPCS: 74177; 80053; 81001; 85025; 96361; 96374; 96375; 99284; A9270; J1885; J2405; J7040; Q9967

== ENCOUNTER 2019-04-06 10:44 | Day surgery (SDC) | payer MEDICAID ==
[~2019-04-06 10:44] MED LIST changes: -Lidocaine 2% 5 ML SDV ONE; -Midazolam 1 MG/ML 2 ML SDV ONE; -Propofol 200 MG/20 ML SDV ONE; -fentaNYL 100 MCG/2 ML SDV ONE
[2019-04-06] MEDS ORDERED: Midazolam 1 MG/ML 2 ML SDV ONE (10:48)
[2019-04-06] MEDS ORDERED: Propofol 200 MG/20 ML SDV ONE ×2 (10:49→12:21)
[2019-04-06] MEDS ORDERED: Glycopyrrolate 0.2 MG/ML SDV ONE (10:50)
--- NOTE | 2019-04-06 11:22 | PCM.PREANE ---
Preanesthetic Assessment - Anesthesia/Transfusion/Family Hx Anesthesia History: Prior Anesthesia Without Reaction Family History of Anesthesia Reaction: No Transfusion History: No Prior Transfusion(s) - Review of Systems General: No Symptoms Pulmonary: No Symptoms Cardiovascular: No Symptoms Gastrointestinal: No Symptoms Neurological: No Symptoms Other: Reports: None - Physical Assessment NPO Status Date: 04/05/19 Height: 6 ft Weight: 122.47 kg ASA Class: 3 Mental Status: Alert & Oriented x3 Airway Class: Mallampati = 1 Dentition: Reports: Normal Dentition ROM/Head Extension: Full Lungs: Clear to Auscultation, Normal Respiratory Effort Cardiovascular: Regular Rate, Regular Rhythm - Allergies Allergies/Adverse Reactions: Allergies Allergy/AdvReac Type Severity Reaction Status Date / Time No Known Allergies Allergy Verified 03/21/19 16:28 - Acknowledgements Anesthesia Type Planned: General Anesthesia Pt an Appropriate Candidate for the Planned Anesthesia: Yes Alternatives and Risks of Anesthesia Discussed w Pt/Guardian: Yes Pt/Guardian Understands and Agrees with Anesthesia Plan: Yes Additional Comments: anes prob list: CAD, s/p stents 2-3 yr ago- still on dual antiplatelet therapy. plavix stopped for procedure- aspirin continued, smoker, htn, anx/dep , tremoe, lumbar stenosis, pseudotumor cerebri PLAN: tiva PreAnesthesia Questionnaire HEENT History: Reports: None Other HEENT History: Wears reading glasses. Cardiovascular History: Reports: High Cholesterol, Hypertension, Stents Other Cardiovascular History: "Some kind of heart problem I'm being worked up for". Quad stents placed last thursday in [place]. Respiratory History: Reports: None Gastrointestinal History: Reports: GERD Other Gastrointestinal History: Stomach ulcer Genitourinary History: Reports: Renal Calculus Other Genitourinary History: currently has a kidney stone Musculoskeletal History: Reports: Arthritis Other Musculoskeletal History: fx hand Neurological History: Reports: Other (See Below) Other Neuro History: pseudotumor cerebrii Psychiatric History: Reports: Anxiety, Depression Endocrine/Metabolic History: Reports: Obesity/BMI 30+ Hematologic History: Reports: Anticoagulation Therapy Immunologic History: Reports: None Oncologic (Cancer) History: Reports: None Dermatologic History: Reports: None - Infectious Disease History Infectious Disease History: Reports: Chicken Pox - Past Surgical History Other Cardiovascular Surgeries/Procedures: coronary stent placement - SUBSTANCE USE Smoking Status *Q: Current Every Day Smoker Tobacco Use Within Last Twelve Months: Cigarettes Recreational Drug Use History: No - HOME MEDS Home Medications: Home Meds Aspirin 81 mg PO DAILY 03/21/18 [History] Clopidogrel [Plavix] 75 mg PO DAILY 03/21/18 [History] FLUoxetine HCl [Fluoxetine HCl] 40 mg PO QAM 03/21/18 [History] Losartan [Cozaar] 50 mg PO QAM 03/21/18 [History] Topiramate [Topiramate ER] 50 mg PO BID 03/21/18 [History] lamoTRIgine 200 mg PO BEDTIME 03/21/18 [History] Amitriptyline [Elavil] 30 mg PO BEDTIME 07/14/18 [History] Nitroglycerin 0.4 mg SL ASDIRECTED PRN 07/14/18 [History] Carisoprodol 250 mg PO TID PRN 12/06/18 [History] Pantoprazole Sodium [Protonix] 20 mg PO ACBREAKFAST 12/06/18 [History] Rosuvastatin Calcium 20 mg PO DAILY 12/06/18 [History] Clobetasol Propionate [Temovate 0.05% Oint] 1 dose TOP ASDIRECTED PRN 03/21/19 [ History] Lidocaine 5% 1 dose TOP TID PRN 03/21/19 [History] Propranolol [Inderal LA] 60 mg PO DAILY 03/21/19 [History] - CURRENT (IN HOUSE) MEDS Current Meds: Current Medications Lactated Ringer's (Ringers, Lactated) 1,000 mls @ 125 mls/hr IV ASDIRECTED LIZ Discontinued Medications Glycopyrrolate (Robinul) Confirm Administered Dose 0.2 mg .ROUTE .STK-MED ONE Stop: 04/06/19 10:51 Midazolam HCl (Versed 1 Mg/Ml) Confirm Administered Dose 2 mg .ROUTE .STK-MED ONE Stop: 04/06/19 10:49 Propofol (Diprivan 20 Ml) Confirm Administered Dose 200 mg .ROUTE .STK-MED ONE Stop: 04/06/19 10:50
--- NOTE | 2019-04-06 12:53 | PCM.OPNOTE ---
- General Post-Op/Procedure Note Date of Surgery/Procedure: 04/06/19 Operative Procedure(s): egd. colonoscopy w snare polypectomy Findings: see [id number] Pre Op Diagnosis: rectal bleed and hx of gastric ulcer Post-Op Diagnosis: Same Anesthesia Technique: Moderate Sedation Primary Surgeon: Blair Hanna Pathology: 5 mm sessiles polyps X 2 at distance 55cm and 45 cm when scope withdrawal Complications: None Condition: Good
--- NOTE | 2019-04-06 13:15 | PCM.POSTAN ---
POST ANESTHESIA ASSESSMENT - MENTAL STATUS Mental Status: Alert, Oriented - RESPIRATORY Respiratory Status: Respiratory Rate WNL, Airway Patent, O2 Saturation Stable - CARDIOVASCULAR CV Status: Pulse Rate WNL, Blood Pressure Stable - GASTROINTESTINAL GI Status: No Symptoms - POST OP HYDRATION Hydration Status: Adequate & Stable
[2019-04-06 13:20] VITALS: BP 117/63
--- NOTE | 2019-04-06 14:03 | PCM48HPAN ---
Post Anesthesia Note - EVALUATION WITHIN 48HRS OF ANESTHETIC Vital Signs in Normal Range: Yes Patient Participated in Evaluation: Yes Respiratory Function Stable: Yes Airway Patent: Yes Cardiovascular Function Stable: Yes Hydration Status Stable: Yes Pain Control Satisfactory: Yes Nausea and Vomiting Control Satisfactory: Yes Mental Status Recovered: Yes Resp Rate: 16
--- NOTE | 2019-04-06 14:16 | OR ---
SURGEON: Blair Hanna MD DATE OF PROCEDURE: 04/06/2019 PREOPERATIVE DIAGNOSES: Rectal bleed and history of gastric ulcer. PROCEDURES PERFORMED: Esophagogastroduodenoscopy and colonoscopy with snare polypectomy. DESCRIPTION OF PROCEDURE: EGD: The patient was taken to the endoscopy room, and with the VAULT INSTALLER, Diprivan was administered. A well-lubricated EGD scope was gently inserted through the oropharynx, down the esophagus, passing through the gastroesophageal junction, into the stomach. The mucosa was examined upon the passage. Any etiology will be noted. Once in the stomach, we continued to advance to the distal antrum, passed through the pylorus into the second portion of the duodenum. Again, the mucosa was examined for any abnormality and etiology. The scope was then retrieved back to the stomach and then retroflexed to look at the fundus of the stomach. If a biopsy was indicated, we will biopsy the antrum, body, and gastroesophageal junction. The air will be sucked out while the scope is retrieved to reduce the patient's discomfort. The patient tolerated the procedure well. There were no intraoperative complications. Dr. Hanna was present through the whole procedure. Prior to surgery, a time-out had been called, the patient identified, procedure identified and antibiotic administered. The patient was taken to the endoscopy room. A time out was called, patient identified, and procedure identified. Diprivan was then administrated. Patient went from awake to sleep, hearing doctor talking or door closing is normal. Perineum inspection and digital examination were then performed. A well- lubricated colonoscope was gently inserted through the rectum, advanced past the rectosigmoid junction, the descending colon, splenic flexure, transverse colon, hepatic flexure, ascending colon, arrived to the cecum. Cecum was identified as dictated in the finding. Then the scope was carefully withdrawn while attention was paid to the mucosal surface for any abnormality. Air will be sucked out during the scope withdrawal. At the rectum, retroflexed to examine any rectal diseases, fistula or hemorrhoids. During mucosal examination, abnormality or polyp encountered. Using snare equipment, the abnormality or the polyp was then snared off using electrocautery. The Patient tolerated procedure well. There were no intraoperative complications, and Dr. Hanna was present throughout the whole procedure. FINDINGS: EGD findings: 1. The patient is easily sedated with VAULT INSTALLER and Diprivan, the patient is soundly snoring. 2. Oropharynx and proximal esophagus free of disease and infection. Distal esophagus at GE junction at 40 shows moderate amount of salmon-colored change, suggests some acid reflux, but is mild. Gastric rugae are normal in appearance. Antrum is a little bit inflamed. Duodenum was grossly normal. Scope retrieved back to the stomach. Retroflexed look at the fundus of stomach, there was no hiatal hernia. The patient is on 81 mg aspirin. Do not see anything suspicious. Did not do a biopsy. Sucked out the gas while scope pulling out. During the whole study, no blood, ulcer, or bile observed. Colonoscopy findings: 1. The patient is easily sedated with VAULT INSTALLER and Diprivan, the patient is soundly snoring. 2. Bowel prep is left to be desirable, a little bit of semi-formed stool and a large amount of liquid stool compromised the study. Colon is rather straightforward. Cecum indicated by ileocecal fold, one-to-one indentation, and appendiceal orifice. Light emittance is not observed. Mucosa examined upon scope pulling out with constant irrigation because of the slightly below average bowel prep. The patient does not have diverticulosis, but has two small polyps, not quite small, but is not large, about 5 mm sessile polyp at distance 55 and 45, which we removed by snare polypectomy, captured, and sent for pathology. No other mass, growth, inflammation, stricture, ulceration, AV malformation, bleeding ulcer, none of those. The patient has mild internal hemorrhoids, mild external hemorrhoids. The patient would benefit from repeat colonoscopy in 10 years from today or if clinically indicated otherwise or if the pathology of the polyp indicated otherwise. FRANCIS / LASHANDA /[id number]
== END 2019-04-06 13:36 | disposition home or self-care (01) ==
LOC: MW.SDS 10:44
PROVIDERS: ATTEND Surgery
DX: K63.5 Polyp of colon (principal); K21.9 Gastro-esophageal reflux disease without esophagitis; K62.5 Hemorrhage of anus and rectum; I25.10 Atherosclerotic heart disease of native coronary artery without angina pectoris; I10 Essential (primary) hypertension; F41.9 Anxiety disorder, unspecified; E78.5 Hyperlipidemia, unspecified; G43.909 Migraine, unspecified, not intractable, without status migrainosus; F17.210 Nicotine dependence, cigarettes, uncomplicated; G93.2 Benign intracranial hypertension; N20.0 Calculus of kidney; M19.90 Unspecified osteoarthritis, unspecified site; E66.9 Obesity, unspecified; Z68.36 Body mass index [BMI] 36.0-36.9, adult; Z87.11 Personal history of peptic ulcer disease; Z79.01 Long term (current) use of anticoagulants; Z79.82 Long term (current) use of aspirin; Z79.899 Other long term (current) drug therapy; Z95.5 Presence of coronary angioplasty implant and graft
CPT/HCPCS: 43239; 45385; J2250; J2704; J3490; J7120; 88305

== ENCOUNTER 2019-04-15 07:15 | Emergency (ER) | payer MEDICAID ==
[2019-04-15] MEDS ORDERED: Sodium Chloride 0.9% 1,000 ML IV ONE (07:33)
[2019-04-15] MEDS ORDERED: Ondansetron 4 MG/2 ML SDV IVPUSH ONE (07:33)
[2019-04-15] MEDS ORDERED: Tamsulosin 0.4 MG Cap.ER PO ONE (07:33)
[2019-04-15] MEDS ORDERED: Sodium Chloride 0.9% 10 ML Syringe FLUSH PRN (07:33)
[2019-04-15] MEDS ORDERED: Sodium Chloride 0.9% 2.5 ML Syringe FLUSH PRN (07:33)
--- NOTE | 2019-04-15 07:36 | EDM.PDOC ---
ED HPI GENERAL MEDICAL PROBLEM - General Chief Complaint: Abdominal Pain Stated Complaint: KIDNEY STONE Time Seen by Provider: 04/15/19 07:32 - History of Present Illness INITIAL COMMENTS - FREE TEXT/NARRATIVE: HISTORY AND PHYSICAL: History of present illness: Patient 54-year-old male with history of urolithiasis presents with concern right-sided abdominal/flank pain worse over last 24 hours single vomiting no fever chills or other concern. Review of systems: As per history of present illness and below otherwise all systems reviewed and negative. Past medical history: As per history of present illness and as reviewed below otherwise noncontributory. Surgical history: As per history of present illness and as reviewed below otherwise noncontributory. Social history: No reported history of drug or alcohol abuse. Family history: As per history of present illness and as reviewed below otherwise noncontributory. Physical exam: HEENT: Atraumatic, normocephalic, pupils reactive, negative for conjunctival pallor or scleral icterus, mucous membranes moist, throat clear, neck supple, nontender, trachea midline. Lungs: Clear to auscultation, breath sounds equal bilaterally, chest nontender. Heart: S1S2, regular, negative for clicks, rubs, or JVD. Abdomen: Soft, nondistended, nontender. Negative for masses or hepatosplenomegaly. Right-sided costovertebral tenderness. Pelvis: Stable nontender. Genitourinary: Deferred. Rectal: Deferred. Extremities: Atraumatic, negative for cords or calf pain. Neurovascular unremarkable. Neuro: Awake, alert, oriented. Cranial nerves II through XII unremarkable. Cerebellum unremarkable. Motor and sensory unremarkable throughout. Exam nonfocal. Diagnostics: CBC CMP UA CT abdomen and pelvis Therapeutics: Saline 1 L bolus Zofran 4 mg IV Flomax 0.4 mg by mouth Impression: #1 right-sided abdominal/flank pain #2 history of urolithiasis Definitive disposition and diagnosis as appropriate pending reevaluation and review of above. right lower quadrant Pain Score (Numeric/FACES): 2 - Related Data Allergies Allergy/AdvReac Type Severity Reaction Status Date / Time No Known Allergies Allergy Verified 03/21/19 16:28 Home Meds: Home Meds Aspirin 81 mg PO DAILY 03/21/18 [History] Clopidogrel [Plavix] 75 mg PO DAILY 03/21/18 [History] FLUoxetine HCl [Fluoxetine HCl] 40 mg PO QAM 03/21/18 [History] Losartan [Cozaar] 50 mg PO QAM 03/21/18 [History] Topiramate [Topiramate ER] 50 mg PO BID 03/21/18 [History] lamoTRIgine 200 mg PO BEDTIME 03/21/18 [History] Amitriptyline [Elavil] 30 mg PO BEDTIME 07/14/18 [History] Nitroglycerin 0.4 mg SL ASDIRECTED PRN 07/14/18 [History] Carisoprodol 250 mg PO TID PRN 12/06/18 [History] Pantoprazole Sodium [Protonix] 20 mg PO ACBREAKFAST 12/06/18 [History] Rosuvastatin Calcium 20 mg PO DAILY 12/06/18 [History] Clobetasol Propionate [Temovate 0.05% Oint] 1 dose TOP ASDIRECTED PRN 03/21/19 [ History] Lidocaine 5% 1 dose TOP TID PRN 03/21/19 [History] Propranolol [Inderal LA] 60 mg PO DAILY 03/21/19 [History] Past Medical History HEENT History: Reports: None Other HEENT History: Wears reading glasses. Cardiovascular History: Reports: High Cholesterol, Hypertension, Stents Other Cardiovascular History: "Some kind of heart problem I'm being worked up for". Quad stents placed last thursday in [place]. Respiratory History: Reports: None Gastrointestinal History: Reports: GERD Other Gastrointestinal History: Stomach ulcer Genitourinary History: Reports: Renal Calculus Other Genitourinary History: currently has a kidney stone Musculoskeletal History: Reports: Arthritis Other Musculoskeletal History: fx hand Neurological History: Reports: Other (See Below) Other Neuro History: pseudotumor cerebrii Psychiatric History: Reports: Anxiety, Depression Endocrine/Metabolic History: Reports: Obesity/BMI 30+ Hematologic History: Reports: Anticoagulation Therapy Immunologic History: Reports: None Oncologic (Cancer) History: Reports: None Dermatologic History: Reports: None - Infectious Disease History Infectious Disease History: Reports: Chicken Pox - Past Surgical History Other Cardiovascular Surgeries/Procedures: coronary stent placement Social & Family History - Family History Family Medical History: Noncontributory Cardiac: Reports: CT - Tobacco Use Smoking Status *Q: Current Every Day Smoker Years of Tobacco use: 40 Packs/Tins Daily: 1 - Caffeine Use Caffeine Use: Reports: Coffee, Energy Drinks - Recreational Drug Use Recreational Drug Use: No - Living Situation & Occupation Living situation: Reports: with Significant Other, Other ([place]) Occupation: Unemployed ED ROS GENERAL - Review of Systems Review Of Systems: ROS reveals no pertinent complaints other than HPI. ED EXAM, GENERAL - Physical Exam Exam: See Below (The dictation) Course - Vital Signs Last Recorded V/S: Last Vital Signs Temp 36.0 C 04/15/19 07:28 Pulse 82 04/15/19 08:30 Resp 16 04/15/19 08:30 BP 144/81 H 04/15/19 08:30 Pulse Ox 96 04/15/19 08:30 - Orders/Labs/Meds Orders: Active Orders 24 hr Category Date Time Status Sodium Chloride 0.9% [Saline Flush] Med 04/15/19 07:33 Active 10 ml FLUSH ASDIRECTED PRN Sodium Chloride 0.9% [Saline Flush] Med 04/15/19 07:33 Active 2.5 ml FLUSH ASDIRECTED PRN Saline Lock Insert [OM.PC] Stat Oth 04/15/19 07:32 Ordered Medication Orders Sodium Chloride (Saline Flush) 10 ml FLUSH ASDIRECTED PRN PRN Reason: Keep Vein Open Sodium Chloride (Saline Flush) 2.5 ml FLUSH ASDIRECTED PRN PRN Reason: Keep Vein Open Labs: Laboratory Tests 04/15/19 04/15/19 04/15/19 Range/Units 07:46 07:46 07:52 WBC 10.51 (4.0-11.0) K/uL RBC 5.00 (4.50-5.90) M/uL Hgb 15.2 (13.0-17.0) g/dL Hct 43.9 (38.0-50.0) % MCV 87.8 (80.0-98.0) fL MCH 30.4 (27.0-32.0) pg MCHC 34.6 (31.0-37.0) g/dL RDW Std Deviation 41.6 (28.0-62.0) fl RDW Coeff of Maribel 13 (11.0-15.0) % Plt Count 273 (150-400) K/uL MPV 9.50 (7.40-12.00) fL Neut % (Auto) 86.5 H (48.0-80.0) % Lymph % (Auto) 8.6 L (16.0-40.0) % Christian % (Auto) 4.3 (0.0-15.0) % Eos % (Auto) 0.4 (0.0-7.0) % Baso % (Auto) 0.2 (0.0-1.5) % Neut # (Auto) 9.1 H (1.4-5.7) K/uL Lymph # (Auto) 0.9 (0.6-2.4) K/uL Christian # (Auto) 0.5 (0.0-0.8) K/uL Eos # (Auto) 0.0 (0.0-0.7) K/uL Baso # (Auto) 0.0 (0.0-0.1) K/uL Nucleated RBC % 0.0 /100WBC Nucleated RBCs # 0 K/uL Sodium 139 (136-148) mmol/L Potassium 4.1 (3.5-5.1) mmol/L Chloride 105 (98-107) mmol/L Carbon Dioxide 21.7 (21.0-32.0) mmol/L BUN 22 H (7.0-18.0) mg/dL Creatinine 1.4 H (0.8-1.3) mg/dL Est Cr Clr Drug Dosing 67.75 mL/min Estimated GFR (MDRD) 53.2 ml/min Glucose 128 H (74-106) mg/dL Calcium 8.9 (8.5-10.1) mg/dL Total Bilirubin 0.5 (0.2-1.0) mg/dL AST 13 L (15-37) IU/L ALT 23 (14-63) IU/L Alkaline Phosphatase 102 (46-116) U/L Total Protein 7.7 (6.4-8.2) g/dL Albumin 4.1 (3.4-5.0) g/dL Globulin 3.6 (2.6-4.0) g/dL Albumin/Globulin Ratio 1.1 (0.9-1.6) Urine Color YELLOW Urine Appearance SLT CLOUDY Urine pH 7.0 (5.0-8.0) Ur Specific Rebecca 1.015 (1.001-1.035) Urine Protein NEGATIVE (NEGATIVE) mg/dL Urine Glucose (UA) NEGATIVE (NEGATIVE) mg/dL Urine Ketones NEGATIVE (NEGATIVE) mg/dL Urine Occult Blood TRACE-INTACT H (NEGATIVE) Urine Nitrite NEGATIVE (NEGATIVE) Urine Bilirubin NEGATIVE (NEGATIVE) Urine Urobilinogen 4.0 H (<2.0) EU/dL Ur Leukocyte Esterase NEGATIVE (NEGATIVE) Urine RBC 3-4 (0-2/HPF) Urine WBC 0-2 (0-5/HPF) Ur Epithelial Cells RARE (NONE-FEW) Amorphous Sediment MODERATE (NEGATIVE) Urine Bacteria NOT SEEN (NEGATIVE) Urine Mucus LIGHT (NONE-MOD) Meds: Medications Generic Name Dose Route Start Last Admin Trade Name Freq PRN Reason Stop Dose Admin Sodium Chloride 10 ml 04/15/19 07:33 Saline Flush FLUSH ASDIRECTED PRN Keep Vein Open Sodium Chloride 2.5 ml 04/15/19 07:33 Saline Flush FLUSH ASDIRECTED PRN Keep Vein Open Discontinued Medications Generic Name Dose Route Start Last Admin Trade Name Freq PRN Reason Stop Dose Admin Sodium Chloride 1,000 mls @ 999 mls/hr 04/15/19 07:33 04/15/19 07:53 Normal Saline IV 04/15/19 08:33 999 mls/hr STAT ONE Administration Ondansetron HCl 4 mg 04/15/19 07:33 04/15/19 07:53 Zofran IVPUSH 04/15/19 07:34 4 mg ONETIME ONE Administration Tamsulosin HCl 0.4 mg 04/15/19 07:33 04/15/19 07:53 Flomax PO 04/15/19 07:34 0.4 mg ONETIME ONE Administration Departure - Departure Time of Disposition: 09:11 Disposition: Home, Self-Care 01 Condition: Good Clinical Impression: Ureterolithiasis - Discharge Information Referrals: Izabel Cabrera MD [Primary Care Provider] - Forms: ED Department Discharge Additional Instructions: The following information is given to patients seen in the emergency department who are being discharged to home. This information is to outline your options for follow-up care. We provide all patients seen in our emergency department with a follow-up referral. The need for follow-up, as well as the timing and circumstances, are variable depending upon the specifics of your emergency department visit. If you don't have a primary care physician on staff, we will provide you with a referral. We always advise you to contact your personal physician following an emergency department visit to inform them of the circumstance of the visit and for follow-up with them and/or the need for any referrals to a consulting specialist. The emergency department will also refer you to a specialist when appropriate. This referral assures that you have the opportunity for followup care with a specialist. All of these measure are taken in an effort to provide you with optimal care, which includes your followup. Under all circumstances we always encourage you to contact your private physician who remains a resource for coordinating your care. When calling for followup care, please make the office aware that this follow-up is from your recent emergency room visit. If for any reason you are refused follow-up, please contact the [facility] emergency department at and asked to speak to the emergency department charge nurse. [facility] Special[facility] - Urology [address] [place] [id number] Follow-up urology above as discussed return as needed as discussed - My Orders Last 24 Hours: My Active Orders 04/15/19 07:32 Saline Lock Insert [OM.PC] Stat 04/15/19 07:33 Sodium Chloride 0.9% [Saline Flush] 10 ml FLUSH ASDIRECTED PRN Sodium Chloride 0.9% [Saline Flush] 2.5 ml FLUSH ASDIRECTED PRN - Assessment/Plan Last 24 Hours: My Active Orders 04/15/19 07:32 Saline Lock Insert [OM.PC] Stat 04/15/19 07:33 Sodium Chloride 0.9% [Saline Flush] 10 ml FLUSH ASDIRECTED PRN Sodium Chloride 0.9% [Saline Flush] 2.5 ml FLUSH ASDIRECTED PRN
--- NOTE | 2019-04-15 08:46 | CT ---
INDICATION: Intermittent right lower quadrant pain. COMPARISON: [address] TECHNIQUE: Noncontrast images. FINDINGS: Visualized lung bases are clear. Coronary artery atherosclerosis. Slightly edematous enlarged right kidney. Hydronephrosis and hydroureter to a ureterovesicular junction stone roughly 4 mm and greatest width and 6 mm in length (image 133 series 201). No other stones on the right. Tiny exophytic cyst medial inferior posterior margin roughly 6 mm. Scattered 5 mm or less stones in the left calices without obstruction. These number roughly 5. Exophytic cyst posterior lower pole left kidney 15 mm. Solid viscera otherwise appear normal. Large and small bowel appear unremarkable. No significant bone finding. IMPRESSION: 1. Chronic right ureteral vesicular junction stone may be very subtly lower than before. Mild obstruction and obstructive uropathy appearance right kidney, similar to comparison. 2. Multiple nonobstructing calculi left kidney. Please note that all CT scans at this facility use dose modulation, iterative reconstruction, and/or weight-based dosing when appropriate to reduce radiation dose to as low as reasonably achievable. Dictated by Darinel Desir MD @ Apr 15 2019 8:37AM Signed by Dr. Darinel Desir @ Apr 15 2019 8:44AM
[2019-04-15 09:33] VITALS: BP 150/93
== END 2019-04-15 09:25 | disposition home or self-care (01) ==
LOC: MW.ED 07:15
DX: N13.2 Hydronephrosis with renal and ureteral calculous obstruction (principal); I10 Essential (primary) hypertension; E78.00 Pure hypercholesterolemia, unspecified; K21.9 Gastro-esophageal reflux disease without esophagitis; F17.210 Nicotine dependence, cigarettes, uncomplicated; Z79.82 Long term (current) use of aspirin; Z79.899 Other long term (current) drug therapy
CPT/HCPCS: 36415; 74176; 80053; 81001; 85025; 96361; 96374; 99284; A9270; J2405; J7040

== ENCOUNTER 2019-04-22 08:19 | Day surgery (SDC) | payer MEDICAID ==
[~2019-04-22 08:19] MED LIST changes: +Iopamidol 200-M 10 ML vial ITHECAL ONE; +Sodium Chloride 0.9% 10 ML SDV IV PRN; +Sodium Chloride 0.9% 10 ML Syringe FLUSH PRN; +Sodium Chloride 0.9% 2.5 ML Syringe FLUSH PRN; +ceFAZolin 2 GM in Premix Bag 1 BAG IV ONE
--- NOTE | 2019-04-22 09:10 | PCM.PREANE ---
Preanesthetic Assessment - Anesthesia/Transfusion/Family Hx Anesthesia History: Prior Anesthesia Without Reaction Family History of Anesthesia Reaction: No Transfusion History: No Prior Transfusion(s) Intubation History: Unknown - Review of Systems General: No Symptoms Pulmonary: No Symptoms Cardiovascular: No Symptoms Gastrointestinal: No Symptoms Neurological: No Symptoms Other: Reports: None - Physical Assessment Height: 6 ft Weight: 118.388 kg ASA Class: 3 Mental Status: Alert & Oriented x3 Airway Class: Mallampati = 3 Dentition: Reports: Normal Dentition Thyro-Mental Finger Breadths: 3 Mouth Opening Finger Breadths: 2 ROM/Head Extension: Full Lungs: Clear to Auscultation, Normal Respiratory Effort Cardiovascular: Regular Rate, Regular Rhythm - Allergies Allergies/Adverse Reactions: Allergies Allergy/AdvReac Type Severity Reaction Status Date / Time No Known Allergies Allergy Verified 04/19/19 10:34 - Blood Blood Available: No - Anesthesia Plan Pre-Op Medication Ordered: None - Acknowledgements Anesthesia Type Planned: General Anesthesia Pt an Appropriate Candidate for the Planned Anesthesia: Yes Alternatives and Risks of Anesthesia Discussed w Pt/Guardian: Yes Pt/Guardian Understands and Agrees with Anesthesia Plan: Yes PreAnesthesia Questionnaire HEENT History: Reports: None Other HEENT History: Wears reading glasses. Cardiovascular History: Reports: CAD, High Cholesterol, Hypertension, Stents ( x4 2015, last plavix 4 days ago) Other Cardiovascular History: "Some kind of heart problem I'm being worked up for. Respiratory History: Reports: None Gastrointestinal History: Reports: GERD Other Gastrointestinal History: Stomach ulcer Genitourinary History: Reports: Renal Calculus Other Genitourinary History: currently has a kidney stone Musculoskeletal History: Reports: Arthritis Other Musculoskeletal History: fx hand Neurological History: Reports: Other (See Below) Other Neuro History: pseudotumor cerebrii, essential tremor Psychiatric History: Reports: Anxiety, Depression Endocrine/Metabolic History: Reports: Obesity/BMI 30+ Hematologic History: Reports: Anticoagulation Therapy Immunologic History: Reports: None Oncologic (Cancer) History: Reports: None Dermatologic History: Reports: None - Infectious Disease History Infectious Disease History: Reports: Chicken Pox - Past Surgical History Head Surgeries/Procedures: Reports: None HEENT Surgical History: Reports: Naso-Sinus Surgery Cardiovascular Surgical History: Reports: Coronary Artery Stent Other Cardiovascular Surgeries/Procedures: coronary stent placement GI Surgical History: Reports: Colonoscopy, EGD Male Surgical History: Reports: Lithotripsy (ESWL) Neurological Surgical History: Reports: None Musculoskeletal Surgical History: Reports: None Oncologic Surgical History: Reports: None Dermatological Surgical History: Reports: None - SUBSTANCE USE Smoking Status *Q: Current Every Day Smoker Tobacco Use Within Last Twelve Months: Cigarettes Recreational Drug Use History: No - HOME MEDS Home Medications: Home Meds Aspirin 81 mg PO DAILY 03/21/18 [History] Clopidogrel [Plavix] 75 mg PO DAILY 03/21/18 [History] FLUoxetine HCl [Fluoxetine HCl] 40 mg PO QAM 03/21/18 [History] Losartan [Cozaar] 50 mg PO QAM 03/21/18 [History] Topiramate [Topiramate ER] 50 mg PO BID 03/21/18 [History] lamoTRIgine 200 mg PO BEDTIME 03/21/18 [History] Amitriptyline [Elavil] 30 mg PO BEDTIME 07/14/18 [History] Nitroglycerin 0.4 mg SL ASDIRECTED PRN 07/14/18 [History] Carisoprodol 250 mg PO TID PRN 12/06/18 [History] Pantoprazole Sodium [Protonix] 20 mg PO ACBREAKFAST 12/06/18 [History] Rosuvastatin Calcium 20 mg PO DAILY 12/06/18 [History] Clobetasol Propionate [Temovate 0.05% Oint] 1 dose TOP ASDIRECTED PRN 03/21/19 [ History] Lidocaine 5% 1 dose TOP TID PRN 03/21/19 [History] Propranolol [Inderal LA] 60 mg PO DAILY 03/21/19 [History] - CURRENT (IN HOUSE) MEDS Current Meds: Current Medications Lactated Ringer's (Ringers, Lactated) 1,000 mls @ 100 mls/hr IV ASDIRECTED LIZ Sodium Chloride (Saline Flush) 10 ml FLUSH ASDIRECTED PRN PRN Reason: Keep Vein Open Sodium Chloride (Saline Flush) 2.5 ml FLUSH ASDIRECTED PRN PRN Reason: Keep Vein Open Sodium Chloride (Normal Saline) 10 ml IV ASDIRECTED PRN PRN Reason: IV Use Discontinued Medications Cefazolin Sodium/Dextrose 2 gm (/ Premix) 50 mls @ 100 mls/hr IV ONCALL ONE Stop: 04/19/19 00:30 Iopamidol (Isovue-M 200) Confirm Administered Dose 10 ml ITHECAL .RUST-MED ONE Stop: 04/22/19 07:49
[2019-04-22] MEDS ORDERED: Propofol 200 MG/20 ML SDV ONE (09:37)
[2019-04-22] MEDS ORDERED: Lidocaine 2% 5 ML SDV ONE (09:37)
[2019-04-22] MEDS ORDERED: Ondansetron 4 MG/2 ML SDV ONE (09:37)
[2019-04-22] MEDS ORDERED: fentaNYL 250 MCG/5 ML SDV ONE (09:38)
[2019-04-22] MEDS ORDERED: Midazolam 1 MG/ML 2 ML SDV ONE (09:38)
[2019-04-22] MEDS ORDERED: ePHEDrine 50 MG/ML SDV ONE (10:30)
[2019-04-22] MEDS ORDERED: ceFAZolin 1 GM Vial ONE (10:33)
[2019-04-22] MEDS ORDERED: Sodium Chloride 0.9% 20 ML ONE (10:33)
[2019-04-22] MEDS ORDERED: Phenylephrine/Normal Saline 100 MCG/ML 10 ML Syringe ONE (10:42)
[2019-04-22] MEDS ORDERED: fentaNYL 100 MCG/2 ML SDV IVPUSH PRN (11:17)
[2019-04-22] MEDS ORDERED: Naloxone 0.4 MG/ML Syringe IVPUSH PRN (11:17)
[2019-04-22] MEDS ORDERED: 50% Dextrose in Water 50 ML Syringe IVPUSH PRN (11:17)
[2019-04-22] MEDS ORDERED: Albuterol 0.083% 2.5 MG/3 ML Neb Soln NEB PRN (11:17)
[2019-04-22] MEDS ORDERED: EPINEPHrine 1:10,000 1 MG/10 ML Syringe IVPUSH PRN (11:17)
[2019-04-22] MEDS ORDERED: Atropine 0.1 MG/ML 10 ML Syringe IVPUSH PRN ×2 (11:17)
[2019-04-22] MEDS ORDERED: Lidocaine 5% Oint 35.44 GM Tube TOP PRN (11:22)
[2019-04-22] MEDS ORDERED: Nitroglycerin 0.4 MG Tab.SL SL PRN (11:22)
[2019-04-22] MEDS ORDERED: CARISOPRODOL 250 MG PO PRN (11:22)
[2019-04-22] MEDS ORDERED: Clobetasol 0.05% Ointment 15 GM Tube TOP PRN (11:22)
[2019-04-22] MEDS ORDERED: Ketorolac 30 MG/ML SDV IM ONE (12:30)
[2019-04-22 12:49] VITALS: BP 138/88
--- NOTE | 2019-04-22 13:08 | OR ---
SURGEON: Tori Roque M.D. DATE OF PROCEDURE: 04/22/2019 PREOPERATIVE DIAGNOSIS: Right lower ureteral stone. POSTOPERATIVE DIAGNOSIS: Right lower ureteral stone. OPERATION: Ureteroscopy, stone removal. DESCRIPTION OF PROCEDURE: The patient was given general anesthesia, was placed in dorsal lithotomy position, prepped and draped in sterile drapes. Cystourethroscopy was done that was relatively normal. No significant prostatic obstruction, just mild enlargement. The inside of the bladder was normal. A Glidewire was advanced alongside the stone, all the way up into the pelvis. The lower ureter was then dilated using the UroMax II balloon dilator to approximately 15-Mosotho. The rigid ureteroscope was used to gain access into the ureter and the stone was removed. With that done, the procedure was terminated, and the patient was moved to recovery room in good condition. FABIOLA / LASHANDA /[id number]
[2019-04-22] MEDS ORDERED: Amitriptyline 10 MG Tab PO SCH (21:00)
[2019-04-22] MEDS ORDERED: lamoTRIgine 100 MG Tab PO SCH (21:00)
[2019-04-22] MEDS ORDERED: TOPIRAMATE 50 MG PO SCH (21:00)
[2019-04-23] MEDS ORDERED: Non-Formulary Medication 1 Each (Pantoprazole Sodium [Protonix] 20 MG) PO SCH (07:30)
[2019-04-23] MEDS ORDERED: Propranolol 60 MG Cap.ER PO SCH (09:00)
[2019-04-23] MEDS ORDERED: Aspirin 81 MG Tab.Chew PO SCH (09:00)
[2019-04-23] MEDS ORDERED: FLUoxetine 20 MG Cap PO SCH (09:00)
[2019-04-23] MEDS ORDERED: Non-Formulary Medication 1 Each (Losartan 50 MG) PO SCH (09:00)
[2019-04-23] MEDS ORDERED: Non-Formulary Medication 1 Each (Rosuvastatin Calcium [Rosuvastatin Calcium] 20 MG) PO SCH (09:00)
[2019-04-23] MEDS ORDERED: Clopidogrel 75 MG Tab PO SCH (09:00)
== END 2019-04-22 13:10 | disposition home or self-care (01) ==
LOC: MW.SDS 08:19
PROVIDERS: ATTEND Urology
DX: N20.2 Calculus of kidney with calculus of ureter (principal); I25.10 Atherosclerotic heart disease of native coronary artery without angina pectoris; E78.00 Pure hypercholesterolemia, unspecified; I10 Essential (primary) hypertension; K21.9 Gastro-esophageal reflux disease without esophagitis; M19.90 Unspecified osteoarthritis, unspecified site; F41.8 Other specified anxiety disorders; F17.210 Nicotine dependence, cigarettes, uncomplicated; E66.9 Obesity, unspecified; Z68.35 Body mass index [BMI] 35.0-35.9, adult; Z79.82 Long term (current) use of aspirin; Z95.5 Presence of coronary angioplasty implant and graft; Z79.02 Long term (current) use of antithrombotics/antiplatelets; Z79.899 Other long term (current) drug therapy
CPT/HCPCS: 52352; C1769; J0690; J1885; J2001; J2250; J2370; J2405; J2704; J3010; J7120; Q9966

== ENCOUNTER 2019-05-01 19:16 | Emergency (ER) | payer MEDICAID ==
[2019-05-01] MEDS ORDERED: Sodium Chloride 0.9% 10 ML Syringe FLUSH PRN (20:03)
[2019-05-01] MEDS ORDERED: Sodium Chloride 0.9% 1,000 ML IV ONE (20:03)
[2019-05-01] MEDS ORDERED: Sodium Chloride 0.9% 2.5 ML Syringe FLUSH PRN (20:03)
--- NOTE | 2019-05-01 20:15 | EDM.PDOC ---
ED HPI GENERAL MEDICAL PROBLEM - General Chief Complaint: General Stated Complaint: HEAT EXHAUSTION Time Seen by Provider: 05/01/19 20:14 Source of Information: Reports: Patient History Limitations: Reports: No Limitations - History of Present Illness INITIAL COMMENTS - FREE TEXT/NARRATIVE: HISTORY AND PHYSICAL: History of present illness: Patient is a 54-year-old male presents to the ED with complaint of headache. He states it started this afternoon after [place]. He states he feels nauseous but denies vomiting. He denies dizziness, syncope, chest pain, SOB, abdominal pain, vomiting. Review of systems: As per history of present illness and below otherwise all systems reviewed and negative. Past medical history: As per history of present illness and as reviewed below otherwise noncontributory. Surgical history: As per history of present illness and as reviewed below otherwise noncontributory. Social history: No reported history of drug or alcohol abuse. Family history: As per history of present illness and as reviewed below otherwise noncontributory. Physical exam: General: Patient sitting comfortably in no acute distress and nontoxic appearing. Patient has sunburn of his neck and arms. HEENT: Atraumatic, normocephalic, pupils reactive, negative for conjunctival pallor or scleral icterus, mucous membranes moist, throat clear, neck supple, nontender, trachea midline. No meningeal signs. Lungs: Clear to auscultation, breath sounds equal bilaterally, chest nontender. Heart: S1S2, regular, negative for clicks, rubs, or overt murmur. Abdomen: Soft, nondistended, nontender. Negative for masses or hepatosplenomegaly. Negative for costovertebral tenderness. No rigidity, rebound , guarding. Pelvis: Stable nontender. Genitourinary: Deferred. Rectal: Deferred. Extremities: Atraumatic, negative for cords or calf pain. Neurovascular unremarkable. Neuro: Awake, alert, oriented. Cranial nerves II through XII unremarkable. Cerebellum unremarkable. Motor and sensory unremarkable throughout. Exam nonfocal. Notes: Diagnostics: CBC, CMP Therapeutics: 1L Normal Saline IV Prescriptions: Impression: Sunburn, headache Plan: 1. Rest and drink plenty of fluids as instructed 2. Follow up with primary care provider 3. Return to ED as needed as discussed Definitive disposition and diagnosis as appropriate pending reevaluation and review of above. - Related Data Allergies Allergy/AdvReac Type Severity Reaction Status Date / Time No Known Allergies Allergy Verified 05/01/19 19:55 Home Meds: Home Meds Aspirin 81 mg PO DAILY 03/21/18 [History] Clopidogrel [Plavix] 75 mg PO DAILY 03/21/18 [History] FLUoxetine HCl [Fluoxetine HCl] 40 mg PO QAM 03/21/18 [History] Losartan [Cozaar] 50 mg PO QAM 03/21/18 [History] Topiramate [Topiramate ER] 50 mg PO BID 03/21/18 [History] lamoTRIgine 100 mg PO BEDTIME 03/21/18 [History] Amitriptyline [Elavil] 30 mg PO BEDTIME 07/14/18 [History] Nitroglycerin 0.4 mg SL ASDIRECTED PRN 07/14/18 [History] Carisoprodol 250 mg PO TID PRN 12/06/18 [History] Pantoprazole Sodium [Protonix] 20 mg PO ACBREAKFAST 12/06/18 [History] Rosuvastatin Calcium 20 mg PO DAILY 12/06/18 [History] Clobetasol Propionate [Temovate 0.05% Oint] 1 dose TOP ASDIRECTED PRN 03/21/19 [ History] Lidocaine 5% 1 dose TOP TID PRN 03/21/19 [History] Propranolol [Inderal LA] 60 mg PO DAILY 03/21/19 [History] Past Medical History HEENT History: Reports: None Other HEENT History: Wears reading glasses. Cardiovascular History: Reports: CAD, High Cholesterol, Hypertension, Stents Other Cardiovascular History: "Some kind of heart problem I'm being worked up for. Respiratory History: Reports: None Gastrointestinal History: Reports: GERD Other Gastrointestinal History: Stomach ulcer Genitourinary History: Reports: Renal Calculus Other Genitourinary History: currently has a kidney stone Musculoskeletal History: Reports: Arthritis Other Musculoskeletal History: fx hand Neurological History: Reports: Other (See Below) Other Neuro History: pseudotumor cerebrii, essential tremor Psychiatric History: Reports: Anxiety, Depression Endocrine/Metabolic History: Reports: Obesity/BMI 30+ Hematologic History: Reports: Anticoagulation Therapy Immunologic History: Reports: None Oncologic (Cancer) History: Reports: None Dermatologic History: Reports: None - Infectious Disease History Infectious Disease History: Reports: Chicken Pox, Measles - Past Surgical History Head Surgeries/Procedures: Reports: None HEENT Surgical History: Reports: Naso-Sinus Surgery Cardiovascular Surgical History: Reports: Coronary Artery Stent Other Cardiovascular Surgeries/Procedures: coronary stent placement GI Surgical History: Reports: Colonoscopy, EGD Male Surgical History: Reports: Lithotripsy (ESWL) Neurological Surgical History: Reports: None Musculoskeletal Surgical History: Reports: None Oncologic Surgical History: Reports: None Dermatological Surgical History: Reports: None Social & Family History - Family History Family Medical History: Noncontributory Cardiac: Reports: [place] - Tobacco Use Smoking Status *Q: Current Every Day Smoker Years of Tobacco use: 40 Packs/Tins Daily: 1 - Caffeine Use Caffeine Use: Reports: Coffee, Energy Drinks - Recreational Drug Use Recreational Drug Use: No - Living Situation & Occupation Living situation: Reports: with Significant Other, Other (living in [facility]) Occupation: Unemployed ED ROS GENERAL - Review of Systems Review Of Systems: ROS reveals no pertinent complaints other than HPI. ED EXAM, GENERAL - Physical Exam Exam: See Below (see dictation) Course - Vital Signs Last Recorded V/S: Last Vital Signs Temp 99.6 F 05/01/19 19:52 Pulse 85 05/01/19 19:52 Resp 16 05/01/19 19:52 BP 136/86 05/01/19 19:52 Pulse Ox 97 05/01/19 19:52 - Orders/Labs/Meds Orders: Active Orders 24 hr Category Date Time Status Sodium Chloride 0.9% [Saline Flush] Med 05/01/19 20:03 Active 10 ml FLUSH ASDIRECTED PRN Sodium Chloride 0.9% [Saline Flush] Med 05/01/19 20:03 Active 2.5 ml FLUSH ASDIRECTED PRN Saline Lock Insert [OM.PC] Stat Oth 05/01/19 20:03 Ordered Medication Orders Sodium Chloride (Saline Flush) 10 ml FLUSH ASDIRECTED PRN PRN Reason: Keep Vein Open Last Admin: 05/01/19 20:29 Dose: 10 ml Sodium Chloride (Saline Flush) 2.5 ml FLUSH ASDIRECTED PRN PRN Reason: Keep Vein Open Last Admin: 05/01/19 20:29 Dose: 2.5 ml Labs: Laboratory Tests 05/01/19 05/01/19 Range/Units 20:26 20:26 WBC 10.57 (4.0-11.0) K/uL RBC 4.87 (4.50-5.90) M/uL Hgb 14.9 (13.0-17.0) g/dL Hct 42.5 (38.0-50.0) % MCV 87.3 (80.0-98.0) fL MCH 30.6 (27.0-32.0) pg MCHC 35.1 (31.0-37.0) g/dL RDW Std Deviation 41.5 (28.0-62.0) fl RDW Coeff of Maribel 13 (11.0-15.0) % Plt Count 254 (150-400) K/uL MPV 9.50 (7.40-12.00) fL Neut % (Auto) 67.3 (48.0-80.0) % Lymph % (Auto) 24.0 (16.0-40.0) % Traverse % (Auto) 6.5 (0.0-15.0) % Eos % (Auto) 1.9 (0.0-7.0) % Baso % (Auto) 0.3 (0.0-1.5) % Neut # (Auto) 7.1 H (1.4-5.7) K/uL Lymph # (Auto) 2.5 H (0.6-2.4) K/uL Traverse # (Auto) 0.7 (0.0-0.8) K/uL Eos # (Auto) 0.2 (0.0-0.7) K/uL Baso # (Auto) 0.0 (0.0-0.1) K/uL Nucleated RBC % 0.0 /100WBC Nucleated RBCs # 0 K/uL Sodium 139 (136-148) mmol/L Potassium 3.7 (3.5-5.1) mmol/L Chloride 105 (98-107) mmol/L Carbon Dioxide 20.5 L (21.0-32.0) mmol/L BUN 21 H (7.0-18.0) mg/dL Creatinine 1.0 (0.8-1.3) mg/dL Est Cr Clr Drug Dosing 94.84 mL/min Estimated GFR (MDRD) > 60.0 ml/min Glucose 86 (74-106) mg/dL Calcium 9.3 (8.5-10.1) mg/dL Total Bilirubin 0.4 (0.2-1.0) mg/dL AST 14 L (15-37) IU/L ALT 26 (14-63) IU/L Alkaline Phosphatase 119 H (46-116) U/L Total Protein 8.0 (6.4-8.2) g/dL Albumin 4.2 (3.4-5.0) g/dL Globulin 3.8 (2.6-4.0) g/dL Albumin/Globulin Ratio 1.1 (0.9-1.6) Meds: Medications Generic Name Dose Route Start Last Admin Trade Name Freq PRN Reason Stop Dose Admin Sodium Chloride 10 ml 05/01/19 20:03 05/01/19 20:29 Saline Flush FLUSH 10 ml ASDIRECTED PRN Administration Keep Vein Open Sodium Chloride 2.5 ml 05/01/19 20:03 05/01/19 20:29 Saline Flush FLUSH 2.5 ml ASDIRECTED PRN Administration Keep Vein Open Discontinued Medications Generic Name Dose Route Start Last Admin Trade Name Freq PRN Reason Stop Dose Admin Sodium Chloride 1,000 mls @ 999 mls/hr 05/01/19 20:03 05/01/19 20:28 Normal Saline IV 05/01/19 21:03 999 mls/hr STAT ONE Administration Departure - Departure Time of Disposition: 21:26 Disposition: Home, Self-Care 01 Condition: Good Clinical Impression: Sunburn, Headache - Discharge Information Referrals: Izabel Cabrera MD [Primary Care Provider] - Forms: ED Department Discharge Additional Instructions: The following information is given to patients seen in the emergency department who are being discharged to home. This information is to outline your options for follow-up care. We provide all patients seen in our emergency department with a follow-up referral. The need for follow-up, as well as the timing and circumstances, are variable depending upon the specifics of your emergency department visit. If you don't have a primary care physician on staff, we will provide you with a referral. We always advise you to contact your personal physician following an emergency department visit to inform them of the circumstance of the visit and for follow-up with them and/or the need for any referrals to a consulting specialist. The emergency department will also refer you to a specialist when appropriate. This referral assures that you have the opportunity for follow-up care with a specialist. All of these measure are taken in an effort to provide you with optimal care, which includes your follow-up. Under all circumstances we always encourage you to contact your private physician who remains a resource for coordinating your care. When calling for follow-up care, please make the office aware that this follow-up is from your recent emergency room visit. If for any reason you are refused follow-up, please contact the [facility] Emergency Department at and asked to speak to the emergency department charge nurse. [facility] [address] [place] [address] [facility] [address] [place] [id number] 1. Rest and drink plenty of fluids as instructed 2. Follow up with primary care provider 3. Return to ED as needed as discussed - My Orders Last 24 Hours: My Active Orders 05/01/19 20:03 Sodium Chloride 0.9% [Saline Flush] 10 ml FLUSH ASDIRECTED PRN Sodium Chloride 0.9% [Saline Flush] 2.5 ml FLUSH ASDIRECTED PRN Saline Lock Insert [OM.PC] Stat - Assessment/Plan Last 24 Hours: My Active Orders 05/01/19 20:03 Sodium Chloride 0.9% [Saline Flush] 10 ml FLUSH ASDIRECTED PRN Sodium Chloride 0.9% [Saline Flush] 2.5 ml FLUSH ASDIRECTED PRN Saline Lock Insert [OM.PC] Stat
[2019-05-01 21:07] LABS: CHLORIDE,CL 105 mmol/L (98-107); SODIUM,NA 139 mmol/L (136-148)
[2019-05-02 02:45] VITALS: BP 144/90
== END 2019-05-01 21:40 | disposition home or self-care (01) ==
LOC: MW.ED 19:16
DX: L55.9 Sunburn, unspecified (principal); R51 Headache; I10 Essential (primary) hypertension; I25.10 Atherosclerotic heart disease of native coronary artery without angina pectoris; K21.9 Gastro-esophageal reflux disease without esophagitis; E66.9 Obesity, unspecified; M19.90 Unspecified osteoarthritis, unspecified site; F17.210 Nicotine dependence, cigarettes, uncomplicated; Z79.899 Other long term (current) drug therapy; Z95.5 Presence of coronary angioplasty implant and graft
CPT/HCPCS: 36415; 80053; 85025; 96360; 99284; J7040

== ENCOUNTER 2019-05-23 16:47 | Observation (INO) | payer MEDICAID ==
[2019-05-23] MEDS ORDERED: Sodium Chloride 0.9% 10 ML Syringe FLUSH PRN (16:48)
[2019-05-23] MEDS ORDERED: Sodium Chloride 0.9% 2.5 ML Syringe FLUSH PRN (16:48)
--- NOTE | 2019-05-23 17:00 | EDM.PDOC ---
<Yane Feliciano - Last Filed: 05/23/19 17:26> ED HPI GENERAL MEDICAL PROBLEM - General Chief Complaint: Chest Pain Stated Complaint: chest pain Time Seen by Provider: 05/23/19 16:57 Source of Information: Reports: Patient History Limitations: Reports: No Limitations - History of Present Illness INITIAL COMMENTS - FREE TEXT/NARRATIVE: HISTORY AND PHYSICAL: History of present illness: Patient is a 54-year-old male presents to the ED with complaint of substernal chest pain. History of CAD with 4 stents in 2014, hypertension and hyperlipidemia. He states he had chest pain yesterday, took 2 nitro and it resolved. He developed chest pain again about 30 minutes prior to arrival to the ED. He did not take any nitro and reports no pain at this time. He denies radiation of pain, shortness of breath, diaphoresis, nausea. He states the pain he is having is similar to when he had his stents placed. Review of systems: As per history of present illness and below otherwise all systems reviewed and negative. Past medical history: As per history of present illness and as reviewed below otherwise noncontributory. Surgical history: As per history of present illness and as reviewed below otherwise noncontributory. Social history: No reported history of drug or alcohol abuse. Family history: As per history of present illness and as reviewed below otherwise noncontributory. Physical exam: General: Patient sitting comfortably in no acute distress and nontoxic appearing HEENT: Atraumatic, normocephalic, pupils reactive, negative for conjunctival pallor or scleral icterus, mucous membranes moist, throat clear, neck supple, nontender, trachea midline. No meningeal signs. Lungs: Clear to auscultation, breath sounds equal bilaterally, chest nontender. Heart: S1S2, regular, negative for clicks, rubs, or overt murmur. Abdomen: Soft, nondistended, nontender. Negative for masses or hepatosplenomegaly. Negative for costovertebral tenderness. No rigidity, rebound , guarding. Pelvis: Stable nontender. Genitourinary: Deferred. Rectal: Deferred. Extremities: Atraumatic, negative for cords or calf pain. Neurovascular unremarkable. Neuro: Awake, alert, oriented. Cranial nerves II through XII unremarkable. Cerebellum unremarkable. Motor and sensory unremarkable throughout. Exam nonfocal. Notes: EKG shows t-wave inversion, this is seen as well on previous EKG in July 2018. Diagnostics: CBC, CMP, troponin, PT/INR, EKG, CXR Therapeutics: [] Prescriptions: Impression: Chest pain r/o ACS Plan: [] Definitive disposition and diagnosis as appropriate pending reevaluation and review of above. left chest Pain Score (Numeric/FACES): 6 - Related Data Allergies Allergy/AdvReac Type Severity Reaction Status Date / Time No Known Allergies Allergy Verified 05/23/19 16:52 Home Meds: Home Meds Aspirin 81 mg PO DAILY 03/21/18 [History] Clopidogrel [Plavix] 75 mg PO DAILY 03/21/18 [History] FLUoxetine HCl [Fluoxetine HCl] 40 mg PO QAM 03/21/18 [History] Losartan [Cozaar] 50 mg PO QAM 03/21/18 [History] Topiramate [Topiramate ER] 50 mg PO BID 03/21/18 [History] lamoTRIgine 100 mg PO BEDTIME 03/21/18 [History] Amitriptyline [Elavil] 30 mg PO BEDTIME 07/14/18 [History] Nitroglycerin 0.4 mg SL ASDIRECTED PRN 07/14/18 [History] Carisoprodol 250 mg PO TID PRN 12/06/18 [History] Pantoprazole Sodium [Protonix] 20 mg PO ACBREAKFAST 12/06/18 [History] Rosuvastatin Calcium 20 mg PO DAILY 12/06/18 [History] Clobetasol Propionate [Temovate 0.05% Oint] 1 dose TOP ASDIRECTED PRN 03/21/19 [ History] Lidocaine 5% 1 dose TOP TID PRN 03/21/19 [History] Propranolol [Inderal LA] 60 mg PO DAILY 03/21/19 [History] Past Medical History HEENT History: Reports: None Other HEENT History: Wears reading glasses. Cardiovascular History: Reports: CAD, High Cholesterol, Hypertension, Stents Other Cardiovascular History: "Some kind of heart problem I'm being worked up for. Respiratory History: Reports: None Gastrointestinal History: Reports: GERD Other Gastrointestinal History: Stomach ulcer Genitourinary History: Reports: Renal Calculus Other Genitourinary History: currently has a kidney stone Musculoskeletal History: Reports: Arthritis Other Musculoskeletal History: fx hand Neurological History: Reports: Other (See Below) Other Neuro History: pseudotumor cerebrii, essential tremor Psychiatric History: Reports: Anxiety, Depression Endocrine/Metabolic History: Reports: Obesity/BMI 30+ Hematologic History: Reports: Anticoagulation Therapy Immunologic History: Reports: None Oncologic (Cancer) History: Reports: None Dermatologic History: Reports: None - Infectious Disease History Infectious Disease History: Reports: Chicken Pox, Measles - Past Surgical History Head Surgeries/Procedures: Reports: None HEENT Surgical History: Reports: Naso-Sinus Surgery Cardiovascular Surgical History: Reports: Coronary Artery Stent Other Cardiovascular Surgeries/Procedures: coronary stent placement GI Surgical History: Reports: Colonoscopy, EGD Male Surgical History: Reports: Lithotripsy (ESWL) Neurological Surgical History: Reports: None Musculoskeletal Surgical History: Reports: None Oncologic Surgical History: Reports: None Dermatological Surgical History: Reports: None Social & Family History - Family History Family Medical History: Noncontributory Cardiac: Reports: [place] - Caffeine Use Caffeine Use: Reports: Coffee, Energy Drinks - Living Situation & Occupation Living situation: Reports: with Significant Other, Other (living in [facility]) Occupation: Unemployed ED ROS GENERAL - Review of Systems Review Of Systems: ROS reveals no pertinent complaints other than HPI. ED EXAM, GENERAL - Physical Exam Exam: See Below (see dictation) Course - Vital Signs Last Recorded V/S: Last Vital Signs Temp 36.2 C 05/23/19 16:50 Pulse 75 05/23/19 18:00 Resp 16 05/23/19 18:00 BP 135/81 05/23/19 18:00 Pulse Ox 97 05/23/19 16:50 - Orders/Labs/Meds Orders: Active Orders 24 hr Category Date Time Status Cardiac Monitoring [RC] . DIRECTED Care 05/23/19 16:48 Active EKG Documentation Completion [RC] STAT Care 05/23/19 16:48 Active Sodium Chloride 0.9% [Saline Flush] Med 05/23/19 16:48 Active 10 ml FLUSH ASDIRECTED PRN Sodium Chloride 0.9% [Saline Flush] Med 05/23/19 16:48 Active 2.5 ml FLUSH ASDIRECTED PRN Saline Lock Insert [OM.PC] Stat Oth 05/23/19 16:48 Ordered Medication Orders Sodium Chloride (Saline Flush) 10 ml FLUSH ASDIRECTED PRN PRN Reason: Keep Vein Open Last Admin: 05/23/19 17:16 Dose: 10 ml Sodium Chloride (Saline Flush) 2.5 ml FLUSH ASDIRECTED PRN PRN Reason: Keep Vein Open Last Admin: 05/23/19 17:16 Dose: 2.5 ml Labs: Laboratory Tests 05/23/19 05/23/19 05/23/19 Range/Units 17:05 17:05 17:05 WBC 7.20 (4.0-11.0) K/uL RBC 4.85 (4.50-5.90) M/uL Hgb 14.7 (13.0-17.0) g/dL Hct 42.8 (38.0-50.0) % MCV 88.2 (80.0-98.0) fL MCH 30.3 (27.0-32.0) pg MCHC 34.3 (31.0-37.0) g/dL RDW Std Deviation 41.9 (28.0-62.0) fl RDW Coeff of Maribel 13 (11.0-15.0) % Plt Count 219 (150-400) K/uL MPV 9.40 (7.40-12.00) fL Neut % (Auto) 61.3 (48.0-80.0) % Lymph % (Auto) 28.2 (16.0-40.0) % [place] % (Auto) 6.8 (0.0-15.0) % Eos % (Auto) 3.3 (0.0-7.0) % Baso % (Auto) 0.4 (0.0-1.5) % Neut # (Auto) 4.4 (1.4-5.7) K/uL Lymph # (Auto) 2.0 (0.6-2.4) K/uL [place] # (Auto) 0.5 (0.0-0.8) K/uL Eos # (Auto) 0.2 (0.0-0.7) K/uL Baso # (Auto) 0.0 (0.0-0.1) K/uL Nucleated RBC % 0.0 /100WBC Nucleated RBCs # 0 K/uL INR 0.95 Sodium 142 (136-148) mmol/L Potassium 4.0 (3.5-5.1) mmol/L Chloride 108 H (98-107) mmol/L Carbon Dioxide 23.1 (21.0-32.0) mmol/L BUN 22 H (7.0-18.0) mg/dL Creatinine 0.8 (0.8-1.3) mg/dL Est Cr Clr Drug Dosing TNP Estimated GFR (MDRD) > 60.0 ml/min Glucose 103 (74-106) mg/dL Calcium 9.6 (8.5-10.1) mg/dL Total Bilirubin 0.2 (0.2-1.0) mg/dL AST 16 (15-37) IU/L ALT 37 (14-63) IU/L Alkaline Phosphatase 108 (46-116) U/L Troponin I < 0.050 (0.000-0.056) ng/mL Total Protein 7.4 (6.4-8.2) g/dL Albumin 3.8 (3.4-5.0) g/dL Globulin 3.6 (2.6-4.0) g/dL Albumin/Globulin Ratio 1.1 (0.9-1.6) Meds: Medications Generic Name Dose Route Start Last Admin Trade Name Freq PRN Reason Stop Dose Admin Sodium Chloride 10 ml 05/23/19 16:48 05/23/19 17:16 Saline Flush FLUSH 10 ml ASDIRECTED PRN Administration Keep Vein Open Sodium Chloride 2.5 ml 05/23/19 16:48 05/23/19 17:16 Saline Flush FLUSH 2.5 ml ASDIRECTED PRN Administration Keep Vein Open Departure - Departure Disposition: Refer to Observation Clinical Impression: Chest pain Referrals: PCP,None [Primary Care Provider] - Forms: ED Department Discharge <Sergio Cruz - Last Filed: 05/23/19 18:35> Departure - Departure Time of Disposition: 18:35 Condition: Good
--- NOTE | 2019-05-23 17:56 | CR ---
INDICATION: Chest pain TECHNIQUE: Chest 1 view. COMPARISON: None. FINDINGS: Cardiovascular and mediastinum: Heart size and vasculature are normal in caliber and appearance. Mediastinum is within normal limits. Lungs and pleural space: Lungs are clear. No sign of infiltrate or mass. No sign of pleural effusion. No pneumothorax. Bones and soft tissues: No significant findings. IMPRESSION: Unremarkable chest. Dictated by: Cesar York MD @ 05/23/2019 17:55:43 (Electronically Signed)
[2019-05-23 18:11] LABS: BLOOD UREA NITROGEN,BUN 22 mg/dL (7.0-18.0); CARBON DIOXIDE,CO2 23.1 mmol/L (21.0-32.0); CHLORIDE,CL 108 mmol/L (98-107); GLUCOSE RANDOM 103 mg/dL (74-106); SODIUM,NA 142 mmol/L (136-148)
[2019-05-23] MEDS ORDERED: Ondansetron 4 MG Tab.DIS PO PRN (18:50)
[2019-05-23] MEDS ORDERED: Ondansetron 4 MG/2 ML SDV IVPUSH PRN (18:50)
[2019-05-23] MEDS ORDERED: Acetaminophen 325 MG Tab PO PRN (18:50)
[2019-05-23] MEDS ORDERED: Nitroglycerin 0.4 MG Tab.SL SL PRN (18:54)
[2019-05-23] MEDS ORDERED: Enoxaparin 40 MG/0.4 ML Syringe SUBCUT SCH (19:00)
--- NOTE | 2019-05-23 19:03 | PCM.HP ---
H&P History of Present Illness - General Date of Service: 05/23/19 Admit Problem/Dx: Admission Diagnosis/Problem Admission Diagnosis/Problem Chest pain - History of Present Illness Initial Comments - Free Text/Narative: Patient is a 54-year-old male who presented to [facility] ER with complaints of chest pain. He has a PMH of HTN, CAD sp stents and hyperlipidemia.Pain is located in substernal region and radiates to left shoulder. Onset of pain was shortly before arrival to ER. He has been having the same type of pain for the past 2-3 days that has resolved with nitroglycerin, however, today it did not. Pain rated as a 1/10 currently. Patient reports that this current pain felt similar to the last time he had a "heart attack." He reports feeling sweaty but denied shortness of breath, nausea, vomiting or fevers. He has been taking all of his medications as prescribed and last saw his PCP approximately 1 week ago. He currently smokes 1 pack per day for the past 40 years. In [facility] ER, initial troponin was negative. CXR was also negative for any acute processes. EKG showed T-wave inversion but was present when compared to prior EKG from Jul 2018. Patient admitted for further evaluation. left chest Pain Score (Numeric/FACES): 6 - Related Data Allergies/Adverse Reactions: Allergies Allergy/AdvReac Type Severity Reaction Status Date / Time No Known Allergies Allergy Verified 05/23/19 16:52 Home Medications: Home Meds Aspirin 81 mg PO DAILY 03/21/18 [History] Clopidogrel [Plavix] 75 mg PO DAILY 03/21/18 [History] FLUoxetine HCl [Fluoxetine HCl] 40 mg PO QAM 03/21/18 [History] Losartan [Cozaar] 50 mg PO QAM 03/21/18 [History] Topiramate [Topiramate ER] 50 mg PO BID 03/21/18 [History] Amitriptyline [Elavil] 30 mg PO BEDTIME 07/14/18 [History] Nitroglycerin 0.4 mg SL ASDIRECTED PRN 07/14/18 [History] Pantoprazole Sodium [Protonix] 20 mg PO ACBREAKFAST 12/06/18 [History] Rosuvastatin Calcium 20 mg PO DAILY 12/06/18 [History] Lidocaine 5% 1 dose TOP TID PRN 03/21/19 [History] Propranolol [Inderal LA] 60 mg PO DAILY 03/21/19 [History] Past Medical History HEENT History: Reports: None Other HEENT History: Wears reading glasses. Cardiovascular History: Reports: CAD, High Cholesterol, Hypertension, Stents Other Cardiovascular History: "Some kind of heart problem I'm being worked up for. Respiratory History: Reports: None Gastrointestinal History: Reports: GERD Other Gastrointestinal History: Stomach ulcer Genitourinary History: Reports: Renal Calculus Other Genitourinary History: currently has a kidney stone Musculoskeletal History: Reports: Arthritis Other Musculoskeletal History: fx hand Neurological History: Reports: Other (See Below) Other Neuro History: pseudotumor cerebrii, essential tremor Psychiatric History: Reports: Anxiety, Depression Endocrine/Metabolic History: Reports: Obesity/BMI 30+ Hematologic History: Reports: Anticoagulation Therapy Immunologic History: Reports: None Oncologic (Cancer) History: Reports: None Dermatologic History: Reports: None - Infectious Disease History Infectious Disease History: Reports: Chicken Pox, Measles - Past Surgical History Head Surgeries/Procedures: Reports: None HEENT Surgical History: Reports: Naso-Sinus Surgery Cardiovascular Surgical History: Reports: Coronary Artery Stent Other Cardiovascular Surgeries/Procedures: coronary stent placement GI Surgical History: Reports: Colonoscopy, EGD Male Surgical History: Reports: Lithotripsy (ESWL) Neurological Surgical History: Reports: None Musculoskeletal Surgical History: Reports: None Oncologic Surgical History: Reports: None Dermatological Surgical History: Reports: None Social & Family History - Family History Family Medical History: Noncontributory Cardiac: Reports: [place] - Tobacco Use Smoking Status *Q: Current Every Day Smoker Years of Tobacco use: 40 Packs/Tins Daily: 0.5 - Caffeine Use Caffeine Use: Reports: Coffee, Energy Drinks - Recreational Drug Use Recreational Drug Use: No - Living Situation & Occupation Living situation: Reports: with Significant Other, Other (living in [facility]) Occupation: Unemployed H&P Review of Systems - Review of Systems: Review Of Systems: ROS reveals no pertinent complaints other than HPI. Exam - Exam Exam: See Below - Vital Signs Vital Signs: Last Vital Signs Temp 97.1 F 05/23/19 16:50 Pulse 75 05/23/19 18:00 Resp 16 05/23/19 18:00 BP 135/81 05/23/19 18:00 Pulse Ox 97 05/23/19 16:50 Weight: 255 lb 11.779 oz - Exam General: Alert, Oriented, Cooperative, Other (no acute distress) HEENT: Conjunctiva Clear, EOMI, Hearing Intact, Posterior Pharynx Clear, Pupils Equal, Pupils Reactive Neck: Supple, Trachea Midline Lungs: Clear to Auscultation, Normal Respiratory Effort Cardiovascular: Regular Rate, Regular Rhythm GI/Abdominal Exam: Normal Bowel Sounds, Soft, Non-Tender, No Distention Extremities: Non-Tender, Other (No lower extremity edema appreciated bilaterally.) Peripheral Pulses: 1+: Posterior Tibial (L), Posterior Tibial (R), 2+: Radial (L ), Radial (R) Skin: Warm, Dry, Intact Neurological: Cranial Nerves Intact, Strength Equal Bilateral, Normal Speech, Normal Tone, Sensation Intact. No: Focal Deficit Psychiatric: Alert, Normal Affect, Normal Mood - Patient Data Lab Results Last 24 hrs: Laboratory Results - last 24 hr 05/23/19 05/23/19 05/23/19 Range/Units 17:05 17:05 17:05 WBC 7.20 (4.0-11.0) K/uL RBC 4.85 (4.50-5.90) M/uL Hgb 14.7 (13.0-17.0) g/dL Hct 42.8 (38.0-50.0) % MCV 88.2 (80.0-98.0) fL MCH 30.3 (27.0-32.0) pg MCHC 34.3 (31.0-37.0) g/dL RDW Std Deviation 41.9 (28.0-62.0) fl RDW Coeff of Maribel 13 (11.0-15.0) % Plt Count 219 (150-400) K/uL MPV 9.40 (7.40-12.00) fL Neut % (Auto) 61.3 (48.0-80.0) % Lymph % (Auto) 28.2 (16.0-40.0) % [place] % (Auto) 6.8 (0.0-15.0) % Eos % (Auto) 3.3 (0.0-7.0) % Baso % (Auto) 0.4 (0.0-1.5) % Neut # (Auto) 4.4 (1.4-5.7) K/uL Lymph # (Auto) 2.0 (0.6-2.4) K/uL [place] # (Auto) 0.5 (0.0-0.8) K/uL Eos # (Auto) 0.2 (0.0-0.7) K/uL Baso # (Auto) 0.0 (0.0-0.1) K/uL Nucleated RBC % 0.0 /100WBC Nucleated RBCs # 0 K/uL INR 0.95 Sodium 142 (136-148) mmol/L Potassium 4.0 (3.5-5.1) mmol/L Chloride 108 H (98-107) mmol/L Carbon Dioxide 23.1 (21.0-32.0) mmol/L BUN 22 H (7.0-18.0) mg/dL Creatinine 0.8 (0.8-1.3) mg/dL Est Cr Clr Drug Dosing TNP Estimated GFR (MDRD) > 60.0 ml/min Glucose 103 (74-106) mg/dL Calcium 9.6 (8.5-10.1) mg/dL Total Bilirubin 0.2 (0.2-1.0) mg/dL AST 16 (15-37) IU/L ALT 37 (14-63) IU/L Alkaline Phosphatase 108 (46-116) U/L Troponin I < 0.050 (0.000-0.056) ng/mL Total Protein 7.4 (6.4-8.2) g/dL Albumin 3.8 (3.4-5.0) g/dL Globulin 3.6 (2.6-4.0) g/dL Albumin/Globulin Ratio 1.1 (0.9-1.6) Result Diagrams: 05/23/19 17:05 05/23/19 17:05 Problem List Initiated/Reviewed/Updated: Yes Orders Last 24hrs: Active Orders 24 hr Category Date Time Status Patient Status [ADT] Stat ADT 05/23/19 18:36 Active Cardiac Monitoring [RC] . DIRECTED Care 05/23/19 16:48 Active EKG Documentation Completion [RC] STAT Care 05/23/19 16:48 Active Oxygen Therapy [RC] PRN Care 05/23/19 18:50 Ordered Up ad Elaine [RC] ASDIRECTED Care 05/23/19 18:50 Ordered VTE/DVT Education [RC] PER UNIT ROUTINE Care 05/23/19 18:50 Ordered Vital Signs [RC] Q4H Care 05/23/19 18:50 Ordered Heart Healthy Diet [DIET] Diet 05/23/19 Dinner Ordered BASIC METABOLIC PANEL,BMP [CHEM] AM Lab 05/24/19 05:11 Ordered CBC WITH AUTO DIFF [HEME] AM Lab 05/24/19 05:11 Ordered TROPONIN I [CHEM] Q6H Lab 05/23/19 23:00 Ordered TROPONIN I [CHEM] Q6H Lab 05/24/19 05:00 Ordered Acetaminophen [Tylenol] Med 05/23/19 18:50 Ordered 650 mg PO Q4H PRN Amitriptyline [Elavil] Med 05/23/19 21:00 Ordered 30 mg PO BEDTIME Aspirin Med 05/24/19 09:00 Ordered 81 mg PO DAILY Clopidogrel [Plavix] Med 05/24/19 09:00 Ordered 75 mg PO DAILY Enoxaparin [Lovenox] Med 05/23/19 19:00 Ordered 40 mg SUBCUT Q24H FLUoxetine [PROzac] Med 05/24/19 09:00 Ordered 40 mg PO QAM Losartan Med 05/24/19 09:00 Ordered 50 mg PO QAM Nitroglycerin [Nitrostat] Med 05/23/19 18:54 Ordered 0.4 mg SL ASDIRECTED PRN Ondansetron [Zofran ODT] Med 05/23/19 18:50 Ordered 4 mg PO Q4H PRN Ondansetron [Zofran] Med 05/23/19 18:50 Ordered 4 mg IVPUSH Q4H PRN Pantoprazole Sodium [Protonix] Med 05/24/19 07:30 Ordered 20 mg PO ACBREAKFAST Propranolol [Inderal LA] Med 05/24/19 09:00 Ordered 60 mg PO DAILY Rosuvastatin Calcium [Rosuvastatin Calcium] Med 05/24/19 09:00 Ordered 20 mg PO DAILY Sodium Chloride 0.9% [Saline Flush] Med 05/23/19 16:48 Active 10 ml FLUSH ASDIRECTED PRN Sodium Chloride 0.9% [Saline Flush] Med 05/23/19 16:48 Active 2.5 ml FLUSH ASDIRECTED PRN Topiramate [Topiramate ER] Med 05/23/19 21:00 Ordered 50 mg PO BID Saline Lock Insert [OM.PC] Stat Oth 05/23/19 16:48 Ordered Resuscitation Status Routine Resus Stat 05/23/19 18:50 Ordered Medication Orders Acetaminophen (Tylenol) 650 mg PO Q4H PRN PRN Reason: Pain (Mild 1-3)/fever Amitriptyline HCl (Elavil) 30 mg PO BEDTIME [facility] Aspirin (Aspirin) 81 mg PO DAILY [facility] Clopidogrel Bisulfate (Plavix) 75 mg PO DAILY [facility] Enoxaparin Sodium (Lovenox) 40 mg SUBCUT Q24H LIZ Fluoxetine HCl (Prozac) 40 mg PO QAM [facility] Nitroglycerin (Nitrostat) 0.4 mg SL ASDIRECTED PRN PRN Reason: Chest Pain Non-Formulary Medication (Losartan) 50 mg PO QAM [facility] Non-Formulary Medication (Pantoprazole Sodium [Protonix]) 20 mg PO ACBREAKFAST [facility] Non-Formulary Medication (Rosuvastatin Calcium [Rosuvastatin Calcium]) 20 mg PO DAILY [facility] Non-Formulary Medication (Topiramate [Topiramate Er]) 50 mg PO BID [facility] Ondansetron HCl (Zofran Odt) 4 mg PO Q4H PRN PRN Reason: nausea, able to take PO Ondansetron HCl (Zofran) 4 mg IVPUSH Q4H PRN PRN Reason: Nausea Propranolol HCl (Inderal La) 60 mg PO DAILY [facility] Sodium Chloride (Saline Flush) 10 ml FLUSH ASDIRECTED PRN PRN Reason: Keep Vein Open Last Admin: 05/23/19 17:16 Dose: 10 ml Sodium Chloride (Saline Flush) 2.5 ml FLUSH ASDIRECTED PRN PRN Reason: Keep Vein Open Last Admin: 05/23/19 17:16 Dose: 2.5 ml Assessment/Plan Comment:: Assessment: 1. Typical chest pain, ACS rule out. 2. PMH of CAD sp stents, HTN, hyperlipidemia, anxiety and depression. Plan: 1. For chest pain, initial troponin is negative. Will trend troponin q6h. EKG showed T-wave inversion which was present on prior EKG comparison. 2. For past medical history, will continue with home medications.
[2019-05-23] MEDS ORDERED: Amitriptyline 10 MG Tab PO SCH (21:00)
[2019-05-23] MEDS ORDERED: TOPIRAMATE 50 MG PO SCH (21:00)
[2019-05-23] MEDS ORDERED: lamoTRIgine 100 MG Tab PO SCH (21:45)
[2019-05-24 06:01] LABS: BLOOD UREA NITROGEN,BUN 21 mg/dL (7.0-18.0); CARBON DIOXIDE,CO2 26.6 mmol/L (21.0-32.0); CHLORIDE,CL 109 mmol/L (98-107); GLUCOSE RANDOM 90 mg/dL (74-106); POTASSIUM,K 4.1 mmol/L (3.5-5.1); SODIUM,NA 145 mmol/L (136-148)
[2019-05-24] MEDS ORDERED: Omeprazole 20 MG Cap.CR PO SCH (07:30)
[2019-05-24] MEDS ORDERED: Non-Formulary Medication 1 Each (Pantoprazole Sodium [Protonix] 20 MG) PO SCH (07:30)
[2019-05-24 07:50] VITALS: BP 140/82; PULSE 68
[2019-05-24] MEDS ORDERED: Clopidogrel 75 MG Tab PO SCH (09:00)
[2019-05-24] MEDS ORDERED: Propranolol 60 MG Cap.ER PO SCH (09:00)
[2019-05-24] MEDS ORDERED: Non-Formulary Medication 1 Each (Losartan 50 MG) PO SCH (09:00)
[2019-05-24] MEDS ORDERED: Non-Formulary Medication 1 Each (Rosuvastatin Calcium [Rosuvastatin Calcium] 20 MG) PO SCH (09:00)
[2019-05-24] MEDS ORDERED: Aspirin 81 MG Tab.Chew PO SCH (09:00)
[2019-05-24] MEDS ORDERED: FLUoxetine 20 MG Cap PO SCH (09:00)
--- NOTE | 2019-05-24 09:15 | PCM.DCSUM1 ---
<Edison Abreu M - Last Filed: 05/24/19 09:10> Discharge Summary - Hospital Course Free Text/Narrative:: 54-year-old male admitted for typical chest pain and ACS rule out. He has a PMH of CAD sp stents, HTN and hyperlipidemia. Patient troponins were trended and negative x 3. EKG on admission showed T-wave inversions that were also present when compared to prior EKG from July 2018. CXR on admission was negative. Patient's vitals signs remained stable throughout hospitalization and patient had no reoccurrence of chest pain, shortness of breath, sweats, nausea or vomiting. Discharged with instructions to follow-up with PCP and p 3 arm[employer] im[employer] technician Dr. Salgado. - Discharge Data Discharge Date: 05/24/19 Discharge Disposition: Home, Self-Care 01 Condition: Good - Patient Instructions Diet: Heart Healthy Diet Activity: As Tolerated Notify Provider of: Fever, Increased Pain, Swelling and Redness, Drainage, Nausea and/or Vomiting - Discharge Plan *PRESCRIPTION DRUG MONITORING PROGRAM REVIEWED*: Not Applicable *COPY OF PRESCRIPTION DRUG MONITORING REPORT IN PATIENT CELY: Not Applicable Home Medications: Home Meds Aspirin 81 mg PO DAILY 03/21/18 [History] Clopidogrel [Plavix] 75 mg PO DAILY 03/21/18 [History] FLUoxetine HCl [Fluoxetine HCl] 40 mg PO QAM 03/21/18 [History] Losartan [Cozaar] 50 mg PO QAM 03/21/18 [History] Amitriptyline [Elavil] 30 mg PO BEDTIME 07/14/18 [History] Nitroglycerin 0.4 mg SL ASDIRECTED PRN 07/14/18 [History] Pantoprazole Sodium [Protonix] 20 mg PO ACBREAKFAST 12/06/18 [History] Rosuvastatin Calcium 20 mg PO DAILY 12/06/18 [History] Lidocaine 5% 1 dose TOP TID PRN 03/21/19 [History] Propranolol [Inderal LA] 60 mg PO DAILY 03/21/19 [History] lamoTRIgine [Lamotrigine] 150 mg PO QPM 05/23/19 [History] Patient Handouts: Nonspecific Chest Pain, [id number] Referrals: [facility] [Outside] Devon Salgado MD [Physician] - 06/27/19 11:00 am Izabel Cabrera MD [Physician] - 05/31/19 2:00 pm - Discharge Summary/Plan Comment DC Time >30 min.: No - Patient Data Vitals - Most Recent: Last Vital Signs Temp 98.3 F 05/24/19 07:49 Pulse 68 05/24/19 07:49 Resp 18 05/24/19 07:49 BP 140/82 05/24/19 07:49 Pulse Ox 97 05/24/19 07:49 Weight - Most Recent: 119.386 kg I&O - Last 24 hours: Intake & Output 05/23/19 05/24/19 05/24/19 22:59 06:59 14:59 Intake Total 1740 Balance 1740 Lab Results - Last 24 hrs: Laboratory Results - last 24 hr 05/23/19 05/23/19 05/23/19 Range/Units 17:05 17:05 17:05 WBC 7.20 (4.0-11.0) K/uL RBC 4.85 (4.50-5.90) M/uL Hgb 14.7 (13.0-17.0) g/dL Hct 42.8 (38.0-50.0) % MCV 88.2 (80.0-98.0) fL MCH 30.3 (27.0-32.0) pg MCHC 34.3 (31.0-37.0) g/dL RDW Std Deviation 41.9 (28.0-62.0) fl RDW Coeff of Maribel 13 (11.0-15.0) % Plt Count 219 (150-400) K/uL MPV 9.40 (7.40-12.00) fL Neut % (Auto) 61.3 (48.0-80.0) % Lymph % (Auto) 28.2 (16.0-40.0) % Whiteside % (Auto) 6.8 (0.0-15.0) % Eos % (Auto) 3.3 (0.0-7.0) % Baso % (Auto) 0.4 (0.0-1.5) % Neut # (Auto) 4.4 (1.4-5.7) K/uL Lymph # (Auto) 2.0 (0.6-2.4) K/uL Whiteside # (Auto) 0.5 (0.0-0.8) K/uL Eos # (Auto) 0.2 (0.0-0.7) K/uL Baso # (Auto) 0.0 (0.0-0.1) K/uL Nucleated RBC % 0.0 /100WBC Nucleated RBCs # 0 K/uL INR 0.95 Sodium 142 (136-148) mmol/L Potassium 4.0 (3.5-5.1) mmol/L Chloride 108 H (98-107) mmol/L Carbon Dioxide 23.1 (21.0-32.0) mmol/L BUN 22 H (7.0-18.0) mg/dL Creatinine 0.8 (0.8-1.3) mg/dL Est Cr Clr Drug Dosing TNP Estimated GFR (MDRD) > 60.0 ml/min Glucose 103 (74-106) mg/dL Calcium 9.6 (8.5-10.1) mg/dL Total Bilirubin 0.2 (0.2-1.0) mg/dL AST 16 (15-37) IU/L ALT 37 (14-63) IU/L Alkaline Phosphatase 108 (46-116) U/L Troponin I < 0.050 (0.000-0.056) ng/mL Total Protein 7.4 (6.4-8.2) g/dL Albumin 3.8 (3.4-5.0) g/dL Globulin 3.6 (2.6-4.0) g/dL Albumin/Globulin Ratio 1.1 (0.9-1.6) 05/23/19 05/24/19 05/24/19 Range/Units 22:56 05:13 05:13 WBC 7.04 (4.0-11.0) K/uL RBC 4.47 L (4.50-5.90) M/uL Hgb 13.8 (13.0-17.0) g/dL Hct 40.0 (38.0-50.0) % MCV 89.5 (80.0-98.0) fL MCH 30.9 (27.0-32.0) pg MCHC 34.5 (31.0-37.0) g/dL RDW Std Deviation 42.4 (28.0-62.0) fl RDW Coeff of Maribel 13 (11.0-15.0) % Plt Count 216 (150-400) K/uL MPV 9.80 (7.40-12.00) fL Neut % (Auto) 54.3 (48.0-80.0) % Lymph % (Auto) 33.7 (16.0-40.0) % Whiteside % (Auto) 7.2 (0.0-15.0) % Eos % (Auto) 4.1 (0.0-7.0) % Baso % (Auto) 0.7 (0.0-1.5) % Neut # (Auto) 3.8 (1.4-5.7) K/uL Lymph # (Auto) 2.4 (0.6-2.4) K/uL Whiteside # (Auto) 0.5 (0.0-0.8) K/uL Eos # (Auto) 0.3 (0.0-0.7) K/uL Baso # (Auto) 0.1 (0.0-0.1) K/uL Nucleated RBC % 0.0 /100WBC Nucleated RBCs # 0 K/uL INR Sodium 145 (136-148) mmol/L Potassium 4.1 (3.5-5.1) mmol/L Chloride 109 H (98-107) mmol/L Carbon Dioxide 26.6 (21.0-32.0) mmol/L BUN 21 H (7.0-18.0) mg/dL Creatinine 0.9 (0.8-1.3) mg/dL Est Cr Clr Drug Dosing 105.38 Estimated GFR (MDRD) > 60.0 ml/min Glucose 90 (74-106) mg/dL Calcium 9.3 (8.5-10.1) mg/dL Total Bilirubin (0.2-1.0) mg/dL AST (15-37) IU/L ALT (14-63) IU/L Alkaline Phosphatase (46-116) U/L Troponin I < 0.050 (0.000-0.056) ng/mL Total Protein (6.4-8.2) g/dL Albumin (3.4-5.0) g/dL Globulin (2.6-4.0) g/dL Albumin/Globulin Ratio (0.9-1.6) 08/06/19 Range/Units 05:13 WBC (4.0-11.0) K/uL RBC (4.50-5.90) M/uL Hgb (13.0-17.0) g/dL Hct (38.0-50.0) % MCV (80.0-98.0) fL MCH (27.0-32.0) pg MCHC (31.0-37.0) g/dL RDW Std Deviation (28.0-62.0) fl RDW Coeff of Maribel (11.0-15.0) % Plt Count (150-400) K/uL MPV (7.40-12.00) fL Neut % (Auto) (48.0-80.0) % Lymph % (Auto) (16.0-40.0) % Whiteside % (Auto) (0.0-15.0) % Eos % (Auto) (0.0-7.0) % Baso % (Auto) (0.0-1.5) % Neut # (Auto) (1.4-5.7) K/uL Lymph # (Auto) (0.6-2.4) K/uL Whiteside # (Auto) (0.0-0.8) K/uL Eos # (Auto) (0.0-0.7) K/uL Baso # (Auto) (0.0-0.1) K/uL Nucleated RBC % /100WBC Nucleated RBCs # K/uL INR Sodium (136-148) mmol/L Potassium (3.5-5.1) mmol/L Chloride (98-107) mmol/L Carbon Dioxide (21.0-32.0) mmol/L BUN (7.0-18.0) mg/dL Creatinine (0.8-1.3) mg/dL Est Cr Clr Drug Dosing Estimated GFR (MDRD) ml/min Glucose (74-106) mg/dL Calcium (8.5-10.1) mg/dL Total Bilirubin (0.2-1.0) mg/dL AST (15-37) IU/L ALT (14-63) IU/L Alkaline Phosphatase (46-116) U/L Troponin I < 0.050 (0.000-0.056) ng/mL Total Protein (6.4-8.2) g/dL Albumin (3.4-5.0) g/dL Globulin (2.6-4.0) g/dL Albumin/Globulin Ratio (0.9-1.6) Med Orders - Current: Current Medications Acetaminophen (Tylenol) 650 mg PO Q4H PRN PRN Reason: Pain (Mild 1-3)/fever Amitriptyline HCl (Elavil) 30 mg PO BEDTIME [facility] Last Admin: 05/23/19 20:47 Dose: 30 mg Aspirin (Aspirin) 81 mg PO DAILY [facility] Last Admin: 05/24/19 08:05 Dose: 81 mg Clopidogrel Bisulfate (Plavix) 75 mg PO DAILY [facility] Last Admin: 05/24/19 08:05 Dose: 75 mg Enoxaparin Sodium (Lovenox) 40 mg SUBCUT Q24H [facility] Last Admin: 05/23/19 20:47 Dose: 40 mg Fluoxetine HCl (Prozac) 40 mg PO QAM [facility] Last Admin: 05/24/19 08:05 Dose: 40 mg Lamotrigine (Lamotrigine) 150 mg PO BEDTIME [facility] Last Admin: 05/23/19 21:58 Dose: 150 mg Nitroglycerin (Nitrostat) 0.4 mg SL ASDIRECTED PRN PRN Reason: Chest Pain Non-Formulary Medication (Losartan) 50 mg PO QAM [facility] Last Admin: 05/24/19 08:07 Dose: Not Given Non-Formulary Medication (Rosuvastatin Calcium [Rosuvastatin Calcium]) 20 mg PO DAILY [facility] Non-Formulary Medication (Topiramate [Topiramate Er]) 50 mg PO BID [facility] Last Admin: 05/23/19 20:47 Dose: Not Given Omeprazole (Omeprazole) 20 mg PO ACBREAKFAST [facility] Last Admin: 05/24/19 08:05 Dose: 20 mg Ondansetron HCl (Zofran Odt) 4 mg PO Q4H PRN PRN Reason: nausea, able to take PO Ondansetron HCl (Zofran) 4 mg IVPUSH Q4H PRN PRN Reason: Nausea Propranolol HCl (Inderal La) 60 mg PO DAILY [facility] Last Admin: 05/24/19 08:05 Dose: 60 mg Sodium Chloride (Saline Flush) 10 ml FLUSH ASDIRECTED PRN PRN Reason: Keep Vein Open Last Admin: 05/23/19 17:16 Dose: 10 ml Sodium Chloride (Saline Flush) 2.5 ml FLUSH ASDIRECTED PRN PRN Reason: Keep Vein Open Last Admin: 05/23/19 17:16 Dose: 2.5 ml Discontinued Medications Non-Formulary Medication (Pantoprazole Sodium [Protonix]) 20 mg PO ACBREAKFAST [facility] - Exam General: Reports: Alert, Oriented, Cooperative, No Acute Distress Lungs: Reports: Clear to Auscultation, Normal Respiratory Effort Cardiovascular: Reports: Regular Rate, Regular Rhythm GI/Abdominal Exam: Normal Bowel Sounds, Soft, Non-Tender, No Distention Extremities: Other (trace edema bilaterally) <Nikos Flores - Last Filed: 05/30/19 19:28> - Patient Data Vitals - Most Recent: Last Vital Signs Temp 36.8 C 05/24/19 07:49 Pulse 68 05/24/19 07:49 Resp 18 05/24/19 07:49 BP 140/82 05/24/19 07:49 Pulse Ox 97 05/24/19 07:49 Med Orders - Current: Current Medications Discontinued Medications Acetaminophen (Tylenol) 650 mg PO Q4H PRN PRN Reason: Pain (Mild 1-3)/fever Amitriptyline HCl (Elavil) 30 mg PO BEDTIME [facility] Last Admin: 05/23/19 20:47 Dose: 30 mg Aspirin (Aspirin) 81 mg PO DAILY [facility] Last Admin: 05/24/19 08:05 Dose: 81 mg Clopidogrel Bisulfate (Plavix) 75 mg PO DAILY [facility] Last Admin: 05/24/19 08:05 Dose: 75 mg Enoxaparin Sodium (Lovenox) 40 mg SUBCUT Q24H [facility] Last Admin: 05/23/19 20:47 Dose: 40 mg Fluoxetine HCl (Prozac) 40 mg PO QAM [facility] Last Admin: 05/24/19 08:05 Dose: 40 mg Lamotrigine (Lamotrigine) 150 mg PO BEDTIME [facility] Last Admin: 05/23/19 21:58 Dose: 150 mg Nitroglycerin (Nitrostat) 0.4 mg SL ASDIRECTED PRN PRN Reason: Chest Pain Non-Formulary Medication (Losartan) 50 mg PO QAM [facility] Last Admin: 05/24/19 08:07 Dose: Not Given Non-Formulary Medication (Pantoprazole Sodium [Protonix]) 20 mg PO ACBREAKFAST [facility] Non-Formulary Medication (Rosuvastatin Calcium [Rosuvastatin Calcium]) 20 mg PO DAILY [facility] Non-Formulary Medication (Topiramate [Topiramate Er]) 50 mg PO BID [facility] Last Admin: 05/23/19 20:47 Dose: Not Given Omeprazole (Omeprazole) 20 mg PO ACBREAKFAST [facility] Last Admin: 05/24/19 08:05 Dose: 20 mg Ondansetron HCl (Zofran Odt) 4 mg PO Q4H PRN PRN Reason: nausea, able to take PO Ondansetron HCl (Zofran) 4 mg IVPUSH Q4H PRN PRN Reason: Nausea Propranolol HCl (Inderal La) 60 mg PO DAILY [facility] Last Admin: 05/24/19 08:05 Dose: 60 mg Sodium Chloride (Saline Flush) 10 ml FLUSH ASDIRECTED PRN PRN Reason: Keep Vein Open Last Admin: 05/23/19 17:16 Dose: 10 ml Sodium Chloride (Saline Flush) 2.5 ml FLUSH ASDIRECTED PRN PRN Reason: Keep Vein Open Last Admin: 05/23/19 17:16 Dose: 2.5 ml - Free Text/Narrative Note: I have evaluated the patient. I have discussed findings and treatment plan with resident. I agree with the assessment and plan outlined in the following note.
== END 2019-05-24 10:10 | disposition home or self-care (01) ==
LOC: MW.ED 16:47 → MW.MS 18:36
PROVIDERS: ADMIT Internal Medicine; ATTEND Internal Medicine
DX: R07.2 Precordial pain (principal); I25.10 Atherosclerotic heart disease of native coronary artery without angina pectoris; I10 Essential (primary) hypertension; F41.9 Anxiety disorder, unspecified; F32.9 Major depressive disorder, single episode, unspecified; E78.00 Pure hypercholesterolemia, unspecified; K21.9 Gastro-esophageal reflux disease without esophagitis; N20.0 Calculus of kidney; M19.90 Unspecified osteoarthritis, unspecified site; E66.9 Obesity, unspecified; F17.210 Nicotine dependence, cigarettes, uncomplicated; Z79.82 Long term (current) use of aspirin; Z95.5 Presence of coronary angioplasty implant and graft; Z79.02 Long term (current) use of antithrombotics/antiplatelets; Z79.899 Other long term (current) drug therapy; Z68.35 Body mass index [BMI] 35.0-35.9, adult
CPT/HCPCS: 36415; 71045; 80048; 80053; 84484; 85025; 85610; 93005; 96372; 99285; A9270; G0378; J1650

== ENCOUNTER 2019-08-10 20:12 | Emergency (ER) | payer MEDICAID ==
--- NOTE | 2019-08-10 20:34 | EDM.PDOC ---
ED HPI GENERAL MEDICAL PROBLEM - General Stated Complaint: PAIN IN RIGHT ELBOW Time Seen by Provider: 08/10/19 20:31 Source of Information: Reports: Patient - History of Present Illness INITIAL COMMENTS - FREE TEXT/NARRATIVE: HISTORY AND PHYSICAL: History of present illness: [Patient presents with elbow pain on extension of the right arm, pain began after playing darts, he is tender over the olecranon of the elbow only on extension improved with elbow flexion, doesn't seem to be affected by wrist extension or flexion, increased with pronation however. Pain is 5 out of 10 nonradiating only involving the external elbow over the olecranon I can reproduce symptoms with palpation however above and below the olecranon there is no pain no redness warmth or exudate no open lesion entirely limb is neurovascularly intact shoulder and wrist are unaffected, patient denies trauma Review of systems: As per history of present illness and below otherwise all systems reviewed and negative. Past medical history: As per history of present illness and as reviewed below otherwise noncontributory. Surgical history: As per history of present illness and as reviewed below otherwise noncontributory. Social history: No reported history of drug or alcohol abuse. Family history: As per history of present illness and as reviewed below otherwise noncontributory. Physical exam: HEENT: Atraumatic, normocephalic, pupils reactive, negative for conjunctival pallor or scleral icterus, mucous membranes moist, throat clear, neck supple, nontender, trachea midline. Lungs: Clear to auscultation, breath sounds equal bilaterally, chest nontender. Heart: S1S2, regular, negative for clicks, rubs, or JVD. Abdomen: Soft, nondistended, nontender. Negative for masses or hepatosplenomegaly. Negative for costovertebral tenderness. Pelvis: Stable nontender. Genitourinary: Deferred. Rectal: Deferred. Extremities: Atraumatic, negative for cords or calf pain. Neurovascular unremarkable. Neuro: Awake, alert, oriented. Cranial nerves II through XII unremarkable. Cerebellum unremarkable. Motor and sensory unremarkable throughout. Exam nonfocal. Diagnostics: [cBC uric acid 3 views of the elbow plan film ] Therapeutics: [Toradol Follow-up with orthopedist ] Impression: [ right elbow pain Definitive disposition and diagnosis as appropriate pending reevaluation and review of above. - Related Data Allergies Allergy/AdvReac Type Severity Reaction Status Date / Time No Known Allergies Allergy Verified 08/10/19 20:30 Home Meds: Home Meds Aspirin 81 mg PO DAILY 03/21/18 [History] Clopidogrel [Plavix] 75 mg PO DAILY 03/21/18 [History] FLUoxetine HCl [Fluoxetine HCl] 40 mg PO QAM 03/21/18 [History] Losartan [Cozaar] 50 mg PO QAM 03/21/18 [History] Amitriptyline [Elavil] 30 mg PO BEDTIME 07/14/18 [History] Nitroglycerin 0.4 mg SL ASDIRECTED PRN 07/14/18 [History] Pantoprazole Sodium [Protonix] 20 mg PO ACBREAKFAST 12/06/18 [History] Rosuvastatin Calcium 20 mg PO DAILY 12/06/18 [History] Lidocaine 5% 1 dose TOP TID PRN 03/21/19 [History] Propranolol [Inderal LA] 60 mg PO DAILY 03/21/19 [History] lamoTRIgine [Lamotrigine] 150 mg PO QPM 05/23/19 [History] Past Medical History HEENT History: Reports: None Other HEENT History: Wears reading glasses. Cardiovascular History: Reports: CAD, High Cholesterol, Hypertension, Stents Other Cardiovascular History: "Some kind of heart problem I'm being worked up for. Respiratory History: Reports: None Gastrointestinal History: Reports: GERD Other Gastrointestinal History: Stomach ulcer Genitourinary History: Reports: Renal Calculus Other Genitourinary History: currently has a kidney stone Musculoskeletal History: Reports: Arthritis Other Musculoskeletal History: fx hand Neurological History: Reports: Other (See Below) Other Neuro History: pseudotumor cerebrii, essential tremor Psychiatric History: Reports: Anxiety, Depression Endocrine/Metabolic History: Reports: Obesity/BMI 30+ Hematologic History: Reports: Anticoagulation Therapy Immunologic History: Reports: None Oncologic (Cancer) History: Reports: None Dermatologic History: Reports: None - Infectious Disease History Infectious Disease History: Reports: Chicken Pox, Measles - Past Surgical History Head Surgeries/Procedures: Reports: None HEENT Surgical History: Reports: Naso-Sinus Surgery Cardiovascular Surgical History: Reports: Coronary Artery Stent Other Cardiovascular Surgeries/Procedures: coronary stent placement Respiratory Surgical History: Reports: None GI Surgical History: Reports: Colonoscopy, EGD Male Surgical History: Reports: Lithotripsy ([facility]) Endocrine Surgical History: Reports: None Neurological Surgical History: Reports: None Musculoskeletal Surgical History: Reports: None Oncologic Surgical History: Reports: None Dermatological Surgical History: Reports: None Social & Family History - Family History Family Medical History: Noncontributory Cardiac: Reports: [place] - Caffeine Use Caffeine Use: Reports: Coffee, Soda, Tea - Living Situation & Occupation Living situation: Reports: with Significant Other, Other (living in [facility]) Occupation: Unemployed ED ROS GENERAL - Review of Systems Review Of Systems: See Below ED EXAM, GENERAL - Physical Exam Exam: See Below Course - Vital Signs Last Recorded V/S: Last Vital Signs Temp 98.0 F 08/10/19 20:27 Pulse 90 08/10/19 20:27 Resp 16 08/10/19 20:27 BP 146/90 H 08/10/19 20:27 Pulse Ox 96 08/10/19 20:27 - Orders/Labs/Meds Orders: Active Orders 24 hr Category Date Time Status URIC ACID [CHEM] Stat Lab 08/10/19 21:14 Received Labs: Laboratory Tests 08/10/19 Range/Units 21:14 WBC 6.99 (4.0-11.0) K/uL RBC 4.70 (4.50-5.90) M/uL Hgb 14.4 (13.0-17.0) g/dL Hct 42.5 (38.0-50.0) % MCV 90.4 (80.0-98.0) fL MCH 30.6 (27.0-32.0) pg MCHC 33.9 (31.0-37.0) g/dL RDW Std Deviation 42.6 (28.0-62.0) fl RDW Coeff of Maribel 13 (11.0-15.0) % Plt Count 229 (150-400) K/uL MPV 9.20 (7.40-12.00) fL Nucleated RBC % 0.0 /100WBC Nucleated RBCs # 0 K/uL Departure - Departure Time of Disposition: 21:27 Disposition: Home, Self-Care 01 Condition: Good Clinical Impression: Right elbow pain - Discharge Information Referrals: PCP,None [Primary Care Provider] - Additional Instructions: Medication as prescribed Return if symptoms persist or worsen Follow-up with orthopedist, call phone number below to schedule appropriate follow-up [facility] [address], [address] [place] [address] my orthopedic The following information is given to patients seen in the emergency department who are being discharged to home. This information is to outline your options for follow-up care. We provide all patients seen in our emergency department with a follow-up referral. The need for follow-up, as well as the timing and circumstances, are variable depending upon the specifics of your emergency department visit. If you don't have a primary care physician on staff, we will provide you with a referral. We always advise you to contact your personal physician following an emergency department visit to inform them of the circumstance of the visit and for follow-up with them and/or the need for any referrals to a consulting specialist. The emergency department will also refer you to a specialist when appropriate. This referral assures that you have the opportunity for follow-up care with a specialist. All of these measure are taken in an effort to provide you with optimal care, which includes your follow-up. Under all circumstances we always encourage you to contact your private physician who remains a resource for coordinating your care. When calling for follow-up care, please make the office aware that this follow-up is from your recent emergency room visit. If for any reason you are refused follow-up, please contact the [facility] emergency department at and asked to speak to the emergency department charge nurse. - My Orders Last 24 Hours: My Active Orders 08/10/19 21:14 URIC ACID [CHEM] Stat - Assessment/Plan Last 24 Hours: My Active Orders 08/10/19 21:14 URIC ACID [CHEM] Stat
--- NOTE | 2019-08-10 21:06 | CR ---
Indication: Pain after repetitive motion Technique: Three views right elbow Comparison: None Findings: Bones: Alignment is normal. No fractures or bone lesions. Joint spaces: Unremarkable. Soft tissues: Unremarkable. Impression: Negative. Dictated by Twyla Parada MD @ Aug 10 2019 9:03PM Signed by Dr. Twyla Parada @ Aug 10 2019 9:04PM
[2019-08-10 22:00] VITALS: BP 154/92; PULSE 81
== END 2019-08-10 21:50 | disposition home or self-care (01) ==
LOC: MW.ED 20:12
DX: M25.521 Pain in right elbow (principal); K21.9 Gastro-esophageal reflux disease without esophagitis; I10 Essential (primary) hypertension; E66.9 Obesity, unspecified; E78.00 Pure hypercholesterolemia, unspecified; Z79.82 Long term (current) use of aspirin; Z79.899 Other long term (current) drug therapy; Z68.35 Body mass index [BMI] 35.0-35.9, adult
CPT/HCPCS: 73080-26-RT; 73080-RT; 84550; 85027; 99283-25

== ENCOUNTER 2019-12-28 13:14 | Emergency (ER) | payer MEDICAID ==
[2019-12-28] MEDS ORDERED: Morphine 4 MG/ML Syringe IM ONE (13:28)
[2019-12-28] MEDS ORDERED: Ondansetron 4 MG Tab.DIS PO ONE (13:29)
--- NOTE | 2019-12-28 15:00 | US ---
Renal ultrasound: Multiple real-time images of these kidneys were obtained. Comparison: No previous renal imaging. Findings: Right kidney shows no hydronephrosis or mass. Small exophytic cyst is noted off the lower left kidney measuring 1.6 cm. Kidneys show no hydronephrosis. Bladder is mostly collapsed and not well visualized. Right kidney length is 11.8 cm and left kidney length is 13.1 cm Impression: 1. Small cyst within the lower left kidney. 2. No additional abnormality is appreciated on renal ultrasound exam. Diagnostic code #2 This report was dictated in MDT
--- NOTE | 2019-12-28 15:22 | US ---
Testicular ultrasound: Multiple real-time images of the testicles were obtained. Testicles have a homogeneous ultrasound appearance. Both arterial and venous blood flow are seen within the testicles. Small bilateral hydroceles are noted. Right epididymis appears enlarged which does not show increased vascularity which is most likely incidental. Measurements: Right testicle: 4.1 x 2.3 x 3.0 cm Left testicle: 4.0 x 2.2 x 2.8 cm Impression: 1. No intratesticular abnormality is seen. Blood flow is noted within both testicles. 2. Small bilateral hydroceles. Diagnostic code #2 This report was dictated in MDT
--- NOTE | 2019-12-28 15:33 | US ---
EXAM DATE: 12/28/19 PATIENT'S AGE: 54 Testicular ultrasound: Multiple real-time images of the testicles were obtained. Testicles have a homogeneous ultrasound appearance. Both arterial and venous blood flow are seen within the testicles. Small bilateral hydroceles are noted. Right epididymis appears enlarged which does not show increased vascularity which is most likely incidental. Measurements: Right testicle: 4.1 x 2.3 x 3.0 cm Left testicle: 4.0 x 2.2 x 2.8 cm Impression: 1. No intratesticular abnormality is seen. Blood flow is noted within both testicles. 2. Small bilateral hydroceles. Diagnostic code #2 This report was dictated in MDT Report Signed by Proxy. CAROLINA
--- NOTE | 2019-12-28 16:51 | CT ---
CT abdomen and pelvis Technique: Multiple axial sections were obtained from above the dome of the diaphragm inferiorly through the pubic symphysis. Intravenous and oral contrast not utilized. Study performed as a ureteral stone protocol. Comparison: Prior CT abdomen and pelvis exam of 04/15/19. Findings: Visualized lung bases show nothing acute. Noncontrast appearance of the liver shows no discrete abnormality. Spleen appears within normal limits. Adrenal glands show no nodule. Pancreas is within normal limits. Gallbladder contains no calcified gallstones. Aorta shows no aneurysm with mild atherosclerotic calcification. Appendix is seen which is normal in size. No pelvic mass or adenopathy is seen. Left ureter is mildly dilated. This finding is caused by distal obstructing stone located close to the UVJ measuring approximately 5 mm. Multiple small nonobstructing calculi are seen within the left kidney. Small exophytic cortical cysts are noted within the right kidney. Bone window settings were reviewed which show no acute osseous finding. Degenerative change is noted within the lower lumbar spine. Impression: 1. 5 mm obstructing stone within the distal left ureter close to the UVJ. 2. Multiple small nonobstructing calculi within the left kidney. 3. Other findings believed to be nonacute and incidental as described above. Diagnostic code #3 This report was dictated in MDT
--- NOTE | 2019-12-28 17:05 | EDM.PDOC ---
ED HPI GENERAL MEDICAL PROBLEM - General Chief Complaint: Genitourinary Problem Stated Complaint: TESTICLE PAIN Time Seen by Provider: 12/28/19 14:57 Source of Information: Reports: Patient History Limitations: Reports: No Limitations - History of Present Illness INITIAL COMMENTS - FREE TEXT/NARRATIVE: Patient presents with left-sided testicular pain severe for 2 days patient sweating and intractable pain. Patient thinks his testicals are infected Onset: Today Location: Reports: Pelvis Quality: Reports: Ache, Burning Severity: Severe Improves with: Reports: None Worsens with: Reports: None, Breathing Context: Reports: Activity, Exercise Associated Symptoms: Reports: No Other Symptoms, Confusion left testicle Pain Score (Numeric/FACES): 10 - Related Data Allergies Allergy/AdvReac Type Severity Reaction Status Date / Time No Known Allergies Allergy Verified 12/28/19 13:27 Home Meds: Home Meds Aspirin 81 mg PO DAILY 03/21/18 [History] Clopidogrel [Plavix] 75 mg PO DAILY 03/21/18 [History] FLUoxetine HCl [Fluoxetine HCl] 40 mg PO QAM 03/21/18 [History] Losartan [Cozaar] 50 mg PO QAM 03/21/18 [History] Amitriptyline [Elavil] 30 mg PO BEDTIME 07/14/18 [History] Nitroglycerin 0.4 mg SL ASDIRECTED PRN 07/14/18 [History] Pantoprazole Sodium [Protonix] 20 mg PO ACBREAKFAST 12/06/18 [History] Rosuvastatin Calcium 20 mg PO DAILY 12/06/18 [History] Lidocaine 5% 1 dose TOP TID PRN 03/21/19 [History] Propranolol [Inderal LA] 60 mg PO DAILY 03/21/19 [History] lamoTRIgine [Lamotrigine] 150 mg PO QPM 05/23/19 [History] Past Medical History HEENT History: Reports: None Other HEENT History: Wears reading glasses. Cardiovascular History: Reports: CAD, High Cholesterol, Hypertension, Stents Other Cardiovascular History: "Some kind of heart problem I'm being worked up for. Respiratory History: Reports: None Gastrointestinal History: Reports: GERD Other Gastrointestinal History: Stomach ulcer Genitourinary History: Reports: Renal Calculus Other Genitourinary History: currently has a kidney stone Musculoskeletal History: Reports: Arthritis Other Musculoskeletal History: fx hand Neurological History: Reports: Other (See Below) Other Neuro History: pseudotumor cerebrii, essential tremor Psychiatric History: Reports: Anxiety, Depression Endocrine/Metabolic History: Reports: Obesity/BMI 30+ Hematologic History: Reports: Anticoagulation Therapy Immunologic History: Reports: None Oncologic (Cancer) History: Reports: None Dermatologic History: Reports: None - Infectious Disease History Infectious Disease History: Reports: Chicken Pox, Measles - Past Surgical History Head Surgeries/Procedures: Reports: None HEENT Surgical History: Reports: Naso-Sinus Surgery Cardiovascular Surgical History: Reports: Coronary Artery Stent Other Cardiovascular Surgeries/Procedures: coronary stent placement Respiratory Surgical History: Reports: None GI Surgical History: Reports: Colonoscopy, EGD Male Surgical History: Reports: Lithotripsy (ESWL) Endocrine Surgical History: Reports: None Neurological Surgical History: Reports: None Musculoskeletal Surgical History: Reports: None Oncologic Surgical History: Reports: None Dermatological Surgical History: Reports: None Social & Family History - Family History Family Medical History: Noncontributory Cardiac: Reports: [place] - Tobacco Use Smoking Status *Q: Current Every Day Smoker Years of Tobacco use: 40 Packs/Tins Daily: 1 - Caffeine Use Caffeine Use: Reports: Coffee, Soda, Tea - Living Situation & Occupation Living situation: Reports: with Significant Other, Other (living in [facility]) Occupation: Unemployed ED ROS GENERAL - Review of Systems Review Of Systems: See Below Constitutional: Reports: No Symptoms HEENT: Reports: No Symptoms Respiratory: Reports: No Symptoms Cardiovascular: Reports: No Symptoms Endocrine: Reports: No Symptoms GI/Abdominal: Reports: No Symptoms : Reports: No Symptoms, Dysuria, Pain Musculoskeletal: Reports: No Symptoms Skin: Reports: No Symptoms Neurological: Reports: No Symptoms Psychiatric: Reports: No Symptoms Hematologic/Lymphatic: Reports: No Symptoms Immunologic: Reports: No Symptoms ED EXAM, RENAL/ - Physical Exam Exam: See Below Text/Narrative:: Exam patient has pain in the left testes and left lower groin area. Otherwise pretty much normal. Exam Limited By: No Limitations General Appearance: Alert, WD/WN, No Apparent Distress Eye Exam: Bilateral Eye: Normal Fundi, Normal Inspection Ears: Normal External Exam, Normal Canal, Hearing Grossly Normal, Normal TMs Nose: Normal Inspection, Normal Mucosa Throat/Mouth: Normal Inspection, Normal Oropharynx Head: Atraumatic, Normocephalic Respiratory/Chest: No Respiratory Distress, Lungs Clear, No Accessory Muscle Use Cardiovascular: Normal Peripheral Pulses, Regular Rate, Rhythm, No JVD GI/Abdominal: Normal Bowel Sounds, Soft, No Distention, No Abnormal Bruit (Male) Exam: No Hernia Back Exam: Normal Inspection, Full Range of Motion Extremities: Normal Inspection, Normal Range of Motion, No Pedal Edema, Normal Capillary Refill Neurological: Alert, Oriented, CN II-XII Intact, Normal Cognition, Normal Reflexes, No Motor/Sensory Deficits Psychiatric: Normal Affect, Normal Mood Skin Exam: Warm, Dry, Intact, Normal Color Lymphatic: No Adenopathy Course - Vital Signs Last Recorded V/S: Last Vital Signs Temp 96.4 F L 12/28/19 13:24 Pulse 64 12/28/19 13:24 Resp 16 12/28/19 13:24 BP 180/129 H 12/28/19 13:24 Pulse Ox 95 12/28/19 13:24 - Orders/Labs/Meds Orders: Active Orders 24 hr Category Date Time Status CULTURE URINE [RM] Stat Lab 12/28/19 13:30 Received Labs: Laboratory Tests 12/28/19 Range/Units 13:30 Urine Color BROWN Urine Appearance SLT CLOUDY Urine pH 5.5 (5.0-8.0) Ur Specific [place] >= 1.030 (1.001-1.035) Urine Protein 100 H (NEGATIVE) mg/dL Urine Glucose (UA) NEGATIVE (NEGATIVE) mg/dL Urine Ketones TRACE H (NEGATIVE) mg/dL Urine Occult Blood LARGE H (NEGATIVE) Urine Nitrite POSITIVE H (NEGATIVE) Urine Bilirubin MODERATE H (NEGATIVE) Urine Ictotest NEGATIVE Urine Urobilinogen 1.0 (<2.0) EU/dL Ur Leukocyte Esterase NEGATIVE (NEGATIVE) Urine RBC TOO NUMEROUS TO CT (0-2/HPF) Urine WBC 0-5 (0-5/HPF) Ur Epithelial Cells RARE (NONE-FEW) Urine Bacteria 3+ H (NEGATIVE) Urinalysis Comment Meds: Medications Discontinued Medications Generic Name Dose Route Start Last Admin Trade Name Freq PRN Reason Stop Dose Admin Morphine Sulfate 4 mg 12/28/19 13:28 12/28/19 13:37 Morphine IM 12/28/19 13:29 4 mg ONETIME ONE Administration Ondansetron HCl 4 mg 12/28/19 13:29 12/28/19 13:37 Zofran Odt PO 12/28/19 13:30 4 mg ONETIME ONE Administration Departure - Departure Time of Disposition: 17:06 Disposition: Home, Self-Care 01 Condition: Good Clinical Impression: Kidney stone - Discharge Information Instructions: Kidney Stones, [id number] Referrals: Izabel Cabrera MD [Primary Care Provider] - Additional Instructions: The patient is to call Dr. Lemus office for follow up . [phone] urology [facility] Sepsis Event Note - Evaluation Sepsis Screening Result: No Definite Risk - Focused Exam Vital Signs: Vital Signs Temp Pulse Resp BP Pulse Ox 12/28/19 13:24 96.4 F L 64 16 180/129 H 95 Date Exam was Performed: 12/28/19 Time Exam was Performed: 16:57
[2019-12-28 17:18] VITALS: BP 150/83; PULSE 92
[2019-12-28] MEDS ORDERED: Cephalexin 500 MG Cap PO ONE (17:22)
[2019-12-28] MEDS ORDERED: Cephalexin 500 MG Cap ONE (17:22)
== END 2019-12-28 17:30 | disposition home or self-care (01) ==
LOC: MW.ED 13:14
DX: N20.2 Calculus of kidney with calculus of ureter (principal); I25.10 Atherosclerotic heart disease of native coronary artery without angina pectoris; E78.00 Pure hypercholesterolemia, unspecified; I10 Essential (primary) hypertension; K21.9 Gastro-esophageal reflux disease without esophagitis; F41.9 Anxiety disorder, unspecified; F32.9 Major depressive disorder, single episode, unspecified; E66.9 Obesity, unspecified; F17.210 Nicotine dependence, cigarettes, uncomplicated; Z79.82 Long term (current) use of aspirin; Z79.02 Long term (current) use of antithrombotics/antiplatelets; Z79.899 Other long term (current) drug therapy; Z68.41 Body mass index [BMI] 40.0-44.9, adult
CPT/HCPCS: 74176; 76775; 76870; 81001; 87086; 93976; 96372; 99284; A9270; J2270; 99282

== ENCOUNTER 2022-04-08 17:01 | Emergency (ER) | payer MEDICAID ==
[2022-04-08] MEDS ORDERED: Penicillin V Potassium 500 MG Tab PO STA (17:36)
[2022-04-08 18:03] VITALS: BP 115/80; PULSE 74
== END 2022-04-08 18:00 | disposition home or self-care (01) ==
LOC: MW.ED 17:01
DX: K04.7 Periapical abscess without sinus (principal); I10 Essential (primary) hypertension; E78.00 Pure hypercholesterolemia, unspecified; K21.9 Gastro-esophageal reflux disease without esophagitis; E66.9 Obesity, unspecified; Z68.29 Body mass index [BMI] 29.0-29.9, adult; Z79.82 Long term (current) use of aspirin; Z79.899 Other long term (current) drug therapy
CPT/HCPCS: 99282; A9270; 99283

== ENCOUNTER 2022-06-28 13:29 | Emergency (ER) | payer MEDICAID ==
[2022-06-28 14:05] VITALS: BP 111/73; PULSE 73
[2022-06-28] MEDS ORDERED: Benzocaine 20% Topical Spray UD MUCMEM ONE (14:29)
[2022-06-28] MEDS ORDERED: Lidocaine 2% Viscous Solution 15 ML UD PO ONE (14:29)
== END 2022-06-28 14:43 | disposition home or self-care (01) ==
LOC: MW.ED 13:29
DX: K04.7 Periapical abscess without sinus (principal); I10 Essential (primary) hypertension; E78.00 Pure hypercholesterolemia, unspecified; I25.10 Atherosclerotic heart disease of native coronary artery without angina pectoris; K21.9 Gastro-esophageal reflux disease without esophagitis; E66.9 Obesity, unspecified; F17.210 Nicotine dependence, cigarettes, uncomplicated; Z68.42 Body mass index [BMI] 45.0-49.9, adult; Z79.82 Long term (current) use of aspirin; Z79.02 Long term (current) use of antithrombotics/antiplatelets; Z79.899 Other long term (current) drug therapy
CPT/HCPCS: 99282; A9270

== ENCOUNTER 2022-08-02 10:21 | Inpatient (IN) | payer MEDICAID ==
[2022-08-02 11:12] VITALS: BP 135/75; PULSE 59
[2022-08-02 11:33] LABS: BLOOD UREA NITROGEN,BUN 8 mg/dL (7.0-18.0); CARBON DIOXIDE,CO2 29.4 mmol/L (21.0-32.0); CHLORIDE,CL 102 mmol/L (98-107); GLUCOSE RANDOM 133 mg/dL (74-106); POTASSIUM,K 4.2 mmol/L (3.5-5.1); SODIUM,NA 140 mmol/L (136-148)
[2022-08-02 11:43] LABS: ESTIMATED GFR 79 mL/min (>60)
[2022-08-02] MEDS ORDERED: Iopamidol 755 Mg/ML 100 ML Bottle IVPUSH ONE (12:22)
[2022-08-02] MEDS ORDERED: Aspirin 81 MG Tab.Chew PO ONE (13:36)
[2022-08-02] MEDS ORDERED: Clopidogrel 75 MG Tab PO ONE (13:36)
[2022-08-02] MEDS ORDERED: Nicotine 14 MG/24 Hr Patch TRDERM ONE (13:57)
[2022-08-02] MEDS ORDERED: atorvaSTATin 40 MG Tab PO ONE (21:00)
[2022-08-03] MEDS ORDERED: Isosorbide Mononitrate 30 MG Tab.ER PO ONE (21:00)
[2022-08-03] MEDS ORDERED: Amitriptyline 25 MG Tab PO ONE (21:00)
[2022-08-03] MEDS ORDERED: lamoTRIgine 100 MG Tab PO ONE (21:00)
== END 2022-08-04 11:25 | disposition home or self-care (01) | DRG 93 ==
LOC: MW.ED 10:21 → MW.ZCENSUS 13:49 → MW.ED 15:35
PROVIDERS: ADMIT Student in an Organized Health Care Education/Training Program; ATTEND Student in an Organized Health Care Education/Training Program
DX: R47.81 Slurred speech (principal); I25.10 Atherosclerotic heart disease of native coronary artery without angina pectoris; I10 Essential (primary) hypertension; E78.5 Hyperlipidemia, unspecified; F17.210 Nicotine dependence, cigarettes, uncomplicated; R73.03 Prediabetes; Z20.822 Contact with and (suspected) exposure to COVID-19; Z95.5 Presence of coronary angioplasty implant and graft
CPT/HCPCS: 36415; 70450; 70450-26; 70496; 70496-26; 70498; 70498-26; 70553; 70553-26; 80053; 80061; 80305-QW; 80307; 81003; 82607; 82947; 83735; 84443; 84484; 85025; 85610; 93010; 93306; 99291; A9270-GY; Q9967; U0002

== ENCOUNTER 2023-03-23 12:47 | Emergency (ER) | payer MEDICARE, OTHER, MEDICAID ==
[2023-03-23 14:59] VITALS: BP 114/62; PULSE 60
== END 2023-03-23 14:35 | disposition home or self-care (01) ==
LOC: MW.ED 12:47
DX: S46.911A Strain of unspecified muscle, fascia and tendon at shoulder and upper arm level, right arm, initial encounter (principal); I25.10 Atherosclerotic heart disease of native coronary artery without angina pectoris; I10 Essential (primary) hypertension; E78.00 Pure hypercholesterolemia, unspecified; K21.9 Gastro-esophageal reflux disease without esophagitis; M19.90 Unspecified osteoarthritis, unspecified site; E66.9 Obesity, unspecified; F17.210 Nicotine dependence, cigarettes, uncomplicated; Z68.35 Body mass index [BMI] 35.0-35.9, adult; Z79.899 Other long term (current) drug therapy
CPT/HCPCS: 73070-26-RT; 73070-RT; 99283

== ENCOUNTER 2023-04-07 14:40 | Emergency (ER) | payer MEDICARE, MEDICAID ==
[2023-04-07 17:55] VITALS: BP 130/77; PULSE 73
== END 2023-04-07 17:55 | disposition home or self-care (01) ==
LOC: MW.ED 14:40
DX: M79.601 Pain in right arm (principal); I25.10 Atherosclerotic heart disease of native coronary artery without angina pectoris; E78.00 Pure hypercholesterolemia, unspecified; I10 Essential (primary) hypertension; K21.9 Gastro-esophageal reflux disease without esophagitis; E66.9 Obesity, unspecified; Z68.37 Body mass index [BMI] 37.0-37.9, adult; Z79.02 Long term (current) use of antithrombotics/antiplatelets; Z79.82 Long term (current) use of aspirin; Z79.899 Other long term (current) drug therapy
CPT/HCPCS: 93005; 93971-26-RT; 93971-RT; 99284

== ENCOUNTER 2023-10-11 21:14 | Emergency (ER) | payer MEDICARE, MEDICAID ==
[2023-10-11 21:27] VITALS: BP 144/93
[2023-10-11 21:45] LABS: BASOPHILS ABSOLUTE AUTO 0.05 K/uL (0.00-0.20); BASOPHILS PERCENT AUTO 0.5 % (0.0-1.0); EOSINOPHILS ABSOLUTE AUTO 0.22 K/uL (0.00-0.45); HEMATOCRIT 47.2 % (42.0-52.0); IMMATURE GRAN ABSOLUTE AUTO 0.06 K/uL (0.00-0.05); IMMATURE GRAN PERCENT AUTO 0.5 % (0.0-0.4); LYMPHOCYTES ABSOLUTE AUTO 1.92 K/uL (1.00-4.80); LYMPHOCYTES PERCENT AUTO 17.5 % (24.0-44.0); MEAN CORPUSCULAR HGB CONC 33.9 g/dL (32.0-36.0); MEAN CORPUSCULAR VOLUME 85.5 fL (83.0-99.0); MEAN PLATELET VOLUME 8.9 fL (9.4-12.4); MONOCYTES PERCENT AUTO 5.5 % (0.0-8.0); NEUTROPHILS ABSOLUTE AUTO 8.12 K/uL (1.80-7.70); PLATELET COUNT,PLT 272 K/uL (150-400); RED BLOOD CELL COUNT 5.52 M/uL (4.52-5.90); WHITE BLOOD CELL COUNT,WBC 10.97 K/uL (3.9-11.3)
[2023-10-11] MEDS ORDERED: Iopamidol 755 MG/ML 500 ML Multipack Bottle IVPUSH ONE (21:59)
[2023-10-11 22:13] LABS: LACTIC ACID 1.4 mmol/L (0.4-2.0)
[2023-10-11 22:20] LABS: BILIRUBIN TOTAL 0.4 mg/dL (0.2-1.0); CALCIUM 10.3 mg/dL (8.5-10.1); CARBON DIOXIDE,CO2 31.8 mmol/L (21.0-32.0); CREATININE 1.3 mg/dL (0.8-1.3); EST CRCL DRUG DOSING (CG) 69.64 mL/min; POTASSIUM,K 3.7 mmol/L (3.5-5.1); PROTEIN TOTAL,TP 8.1 g/dL (6.4-8.2)
[2023-10-11 23:52] VITALS: PULSE 92
== END 2023-10-11 23:52 | disposition home or self-care (01) ==
LOC: MW.ED 21:14
DX: R10.9 Unspecified abdominal pain (principal); I25.10 Atherosclerotic heart disease of native coronary artery without angina pectoris; E78.00 Pure hypercholesterolemia, unspecified; I10 Essential (primary) hypertension; K21.9 Gastro-esophageal reflux disease without esophagitis; E66.9 Obesity, unspecified; Z68.38 Body mass index [BMI] 38.0-38.9, adult; Z79.82 Long term (current) use of aspirin; Z79.84 Long term (current) use of oral hypoglycemic drugs; Z79.899 Other long term (current) drug therapy
CPT/HCPCS: 36415; 74177; 80053; 83605; 83690; 85025; Q9967; 99284

== ENCOUNTER 2025-01-14 21:28 | Emergency (ER) | payer MEDICAID, MEDICARE ==
[2025-01-14] MEDS: Acetaminophen 325 MG Tab PO ONE (21:42)
[2025-01-14 22:28] VITALS: BP 130/79; PULSE 65
== END 2025-01-14 22:20 | disposition home or self-care (01) ==
LOC: MW.ED 21:28
DX: S06.0X0A Concussion without loss of consciousness, initial encounter (principal); I10 Essential (primary) hypertension; K21.9 Gastro-esophageal reflux disease without esophagitis; E66.9 Obesity, unspecified; Z95.5 Presence of coronary angioplasty implant and graft; Z68.41 Body mass index [BMI] 40.0-44.9, adult; Z79.899 Other long term (current) drug therapy; Z79.84 Long term (current) use of oral hypoglycemic drugs; W01.198A Fall on same level from slipping, tripping and stumbling with subsequent striking against other object, initial encounter; Y92.009 Unspecified place in unspecified non-institutional (private) residence as the place of occurrence of the external cause
CPT/HCPCS: 70450; 99283; A9270; 99282

== ENCOUNTER 2025-05-26 16:55 | Emergency (ER) | payer MEDICARE, MEDICAID ==
[2025-05-26 18:31] LABS: BASOPHILS ABSOLUTE AUTO 0.05 K/uL (0.00-0.20); BASOPHILS PERCENT AUTO 0.6 % (0.0-1.0); EOSINOPHILS ABSOLUTE AUTO 0.22 K/uL (0.00-0.45); EOSINOPHILS PERCENT AUTO 2.5 % (0.0-6.0); IMMATURE GRAN ABSOLUTE AUTO 0.07 K/uL (0.00-0.05); IMMATURE GRAN PERCENT AUTO 0.8 % (0.0-0.4); LYMPHOCYTES ABSOLUTE AUTO 2.06 K/uL (1.00-4.80); LYMPHOCYTES PERCENT AUTO 23.1 % (24.0-44.0); MEAN PLATELET VOLUME 8.7 fL (9.4-12.4); MONOCYTES ABSOLUTE AUTO 0.62 K/uL (0.00-0.80); MONOCYTES PERCENT AUTO 7.0 % (0.0-8.0); NEUTROPHILS ABSOLUTE AUTO 5.88 K/uL (1.80-7.70); NEUTROPHILS PERCENT AUTO 66.0 % (41.0-71.0); NRBC ABSOLUTE 0.00 K/uL (0.00-0.02); NRBC PERCENT 0.0 /100WBC (0.0-0.2); PLATELET COUNT,PLT 260 K/uL (150-400); RED BLOOD CELL COUNT 4.78 M/uL (4.52-5.90); WHITE BLOOD CELL COUNT,WBC 8.90 K/uL (3.9-11.3)
[2025-05-26 18:46] LABS: INR 1.03 (0.86-1.11); PTT,PARTIAL THROMBOPLSTIN TIME 28.5 SEC (23.9-30.7)
[2025-05-26] MEDS: Furosemide 40 MG/4 ML VIAL IVPUSH ONE (19:00)
[2025-05-26 19:12] LABS: A/G RATIO 1.0 (0.9-1.6); ALANINE AMINOTRANSFERASE,ALT 43.0 IU/L (14-63); ASPARTATE AMNIOTRANSFERASE,AST 21.0 IU/L (15-37); BILIRUBIN TOTAL 0.3 mg/dL (0.2-1.0); BLOOD UREA NITROGEN,BUN 16.0 mg/dL (7.0-18.0); CARBON DIOXIDE,CO2 28.5 mmol/L (21.0-32.0); CHLORIDE,CL 102.0 mmol/L (98-107); CREATININE 1.3 mg/dL (0.8-1.3); EST CRCL DRUG DOSING (CG) 67.98 mL/min; GLUCOSE RANDOM 127.0 mg/dL (74-106); POTASSIUM,K 3.8 mmol/L (3.5-5.1); PRO B-TYPE NATRIUR PEPT,BNPPRO 34.0 pg/mL (0-125); PROTEIN TOTAL,TP 7.3 g/dL (6.4-8.2); SODIUM,NA 143.0 mmol/L (136-148)
[2025-05-26 19:15] LABS: ESTIMATED GFR 64.0 mL/min (>60)
[2025-05-26] MEDS: Iopamidol 755 Mg/ML 100 ML Bottle IVPUSH ONE (20:06)
[2025-05-26] MEDS: methylPREDNISolone Sodium Succinate 125 MG/2 ML SDV IVPUSH ONE (21:02)
[2025-05-26 21:25] VITALS: BP 136/82; PULSE 79
== END 2025-05-26 21:23 | disposition home or self-care (01) ==
LOC: MW.ED 16:55
DX: J20.9 Acute bronchitis, unspecified (principal); I25.10 Atherosclerotic heart disease of native coronary artery without angina pectoris; E78.00 Pure hypercholesterolemia, unspecified; I11.0 Hypertensive heart disease with heart failure; I50.9 Heart failure, unspecified; K21.9 Gastro-esophageal reflux disease without esophagitis; F17.200 Nicotine dependence, unspecified, uncomplicated; Z95.5 Presence of coronary angioplasty implant and graft; Z79.899 Other long term (current) drug therapy; Z79.84 Long term (current) use of oral hypoglycemic drugs; Z79.02 Long term (current) use of antithrombotics/antiplatelets
CPT/HCPCS: 36415; 71045; 71275; 80053; 83735; 83880; 84484; 85025; 85610; 85730; 93005; 96374; 96375; 99285; A9270; J1938; J2919; Q9967; 93010; 99283